=== PATIENT | female | born 1985 | race Caucasian/White ===

== ENCOUNTER 2019-09-07 10:55 | Outpatient (CLI) | payer OTHER, SELFPAY ==
[2019-09-07 12:02] LABS: Beta HCG Quantitative 43.85 mIU/ML
[2019-09-11 21:21] LABS: Progesterone 0.6 ng/mL (***)
== END 2019-09-07 10:56 | disposition home or self-care (01) ==
LOC: ANHLAB 10:59
PROVIDERS: PCP Physician Assistant Medical; Visit Provider Obstetrics & Gynecology
DX: O20.0 Threatened abortion (principal)
CPT/HCPCS: 36415; 84144; 84702

== ENCOUNTER 2019-09-09 11:52 | Outpatient (RCR) | payer OTHER, SELFPAY ==
[2019-09-09 12:40] LABS: Beta HCG Quantitative 29.25 mIU/ML
== END 2019-10-25 08:01 | disposition home or self-care (01) ==
LOC: ANHOBOP 11:52
PROVIDERS: PCP Physician Assistant Medical; Visit Provider Obstetrics & Gynecology
DX: Z32.00 Encounter for pregnancy test, result unknown (principal)
CPT/HCPCS: 36415; 84702

== ENCOUNTER 2023-03-07 20:54 | Emergency (ER) | payer OTHER, SELFPAY ==
[2023-03-07 22:31] LABS: Basophils Percent Auto 0.4 % (0.2-1.2); Eosinophils Absolute Auto 0.1 K/mm3 (0-0.3); Hematocrit 38.1 % (37.0-47.0); Hemoglobin 12.7 g/dL (12.0-15.0); Immature Granulocyte Absolute 0.03 K/mm3 (0.00-0.031); Immature Granulocyte Percent A 0.3 % (0-0.5); Lymphocytes Absolute Auto 2.97 K/mm3 (0.9-3.2); Lymphocytes Percent Auto 26.9 % (18.3-44.2); Mean Corpuscular HGB Conc 33.3 g/dl (32-36); Mean Corpuscular Hemoglobin 28.8 pg (26-34); Mean Corpuscular Volume 86.4 fl (80-100); Mean Platelet Volume 10.6 fl (7.4-10.4); Monocytes Absolute Auto 0.7 K/mm3 (0.1-0.6); Monocytes Percent Auto 5.9 % (2.6-8.5); Neutrophils Absolute Auto 7.2 K/mm3 (1.3-6.7); Neutrophils Percent Auto 65.5 % (45.5-73.1); Platelet Count Result 270 k/mm3 (150-375); Red Blood Count 4.41 M/mm3 (4.2-5.4); Red Cell Distribution Width 13.6 % (11.5-14.5)
--- NOTE | 2023-03-07 22:33 | ED.PREGNANCY ---
HPI - General Chief complaint: Vaginal Bleeding Stated complaint: vaginal bleeding 15 weeks Time Seen by Provider: 03/07/23 22:10 Source: patient Mode of arrival: ambulatory Limitations: no limitations History of Present Illness HPI Narrative: This is a 37-year-old G6, P2, about 15 weeks , that presents to the emergency department for vaginal bleeding. Reports yesterday she started to have some pelvic cramping. Today she has noted some spotting. Reports brown/dark red blood. She has had several ultrasounds which showed intrauterine pregnancies. She has had no other complications or bleeding this . Her OB is Dr. Cosby. Denies fevers, vomiting, or dysuria. Related Data Allergies Allergy/AdvReac Type Severity Reaction Status Date / Time Sulfa (Sulfonamide AdvReac Intermediate HIVES, Verified 12/13/22 14:04 Antibiotics) ITCHY Review of Systems Review of Systems: CONSTITUTIONAL: Denies fever GASTROINTESTINAL: Reports pelvic cramping. Denies nausea, vomiting, or diarrhea. GENITOURINARY: Denies dysuria All systems reviewed & are unremarkable except as noted in HPI and below PMFSH Past Medical History Medical History (Updated 03/08/23 @ 00:13 by Danielle Hidalgo PA-C) No active medical problems Social History Social History Smoking status: Unknown if ever smoked Second hand tobacco smoke exposure: No Alcohol intake: never Substance use: never Substance use type: does not use Lack of Transportation: No Lack of Food: Never True Current Housing: I Have Housing Concerned About Future Housing: No Difficulty Paying Gas/Electric Bills: No Difficulty Paying for Meds: No Currently Unemployed: No Education: Bachelor's Degree Difficulty w/ Childcare or Family Care: No Living arrangements: with family Occupation/Education: occupation Gender identity (if verbalized by the patient): Female Sexual Orientation (if Verbalized by the Patient): Straight or Heterosexual Exam Narrative: GENERAL: Well-appearing, well-nourished, and in no acute distress. HEAD: Normocephalic, atraumatic. EYES: EOMI. CHEST: Clear to auscultation. No respiratory distress. No wheezes rales or rhonchi HEART: Regular rate and rhythm. No murmur heard. Normal peripheral pulses. ABDOMEN: Soft, nontender, nondistended, normal active bowel sounds. EXTREMITIES: Normal range of motion. No edema. SKIN: Warm, dry, no rash. NEURO: No focal deficits. Alert and oriented x3. PSYCH: Normal mood and affect PELVIC: Difficult due to body habitus, scant brown/dark red blood noted in the vaginal vault Course Course Emergency Course: Patient was updated on work-up and agrees with plan of care Procedures Other Procedure Procedure 1: Other Procedure: Bedside ultrasound performed which shows motion with positive cardiac activity MDM - OB/Uterine Contractions MDM Narrative Medical decision making narrative: Patient presents to the emergency department for vaginal bleeding in . She is afebrile and nontoxic appearing. Scant amount of bleeding noted on exam. Her hemoglobin is 12.7. She is O+. Bedside ultrasound performed which does show activity with positive cardiac motion. Patient was updated on work-up and agrees with plan of care. Spoke with Dr. Cosby about patient and workup who will follow up in clinic. Patient was given warnings to return to the ER Differential Diagnosis Differential diagnosis: Likely other (Threatened miscarriage, miscarriage) Lab Data Attestation: I reviewed the patient's lab results. 03/07/23 22:18 Labs: Lab Results 03/07/23 03/07/23 Range/Units 22:18 22:24 WBC 11.0 H (4.5-10.0) K/mm3 RBC 4.41 (4.2-5.4) M/mm3 Hgb 12.7 (12.0-15.0) g/dL Hct 38.1 (37.0-47.0) % MCV 86.4 (80-100) fl MCH 28.8 (26-34) pg MCHC 33.3 (32-36) g/dl RDW 13.
[2023-03-07 22:35] LABS: Appearance Urine Cloudy (Clear); Bacteria Urine 1+ /hpf; Bilirubin Urine Negative (Negative); Color Urine Yellow (Yellow); Glucose Urine UA Negative (Negative); Ketones Urine Trace mg/dL (Negative); Leukocyte Esterase Ur Negative LEU/UL (Negative); Nitrate Urine Negative (Negative); Non Pathogenic Casts 0-2; Protein Urine Negative (Negative); RBC Urine 0-2 /hpf (0-2); Specific Grav Ur 1.034 (1.001-1.035); Squamous Epithelial Cell Urine Many /hpf (Few)
[2023-03-07 22:38] LABS: Add Urine Microscopic? YES
[2023-03-07 23:00] VITALS: BP 125/87; PULSE 77; RESP 14; O2SAT 99
[2023-03-08 00:18] VITALS: BP 128/71; PULSE 88; RESP 14; O2SAT 100
== END 2023-03-08 00:40 | disposition home or self-care (01) ==
PROVIDERS: Emergency Provider Physician Assistant; PCP Physician Assistant Medical
DX: O46.92 Antepartum hemorrhage, unspecified, second trimester (principal); Z3A.15 15 weeks gestation of pregnancy
CPT/HCPCS: 36415; 81001; 84702; 85025; 85461; 86850; 86900; 86901; 87086; 87088; 99284

== ENCOUNTER 2023-08-12 20:11 | Observation (INO) | payer OTHER, MEDICAID, SELFPAY ==
--- NOTE | 2023-08-12 20:11 | OBADM ---
This patient, Aislinn Quinteros, admitted to the OB room Labor/Delivery/Recovery 107 for observation. Patient/family oriented to hospital policies and general routines including ID bracelet, bed and alarms, visiting hours, pain management, procedures, bathroom and other care routines, personal items, smoking policy, room service/diet, and visiting hours. Patient/Family are encouraged to report perceived risks to care and to ask questions if they do not understand what they are told or what they should do.
--- NOTE | 2023-08-12 21:50 | PC.NURSE ---
Discharge instructions reviewed with patient. Labor precautions reviewed and kick counts reviewed. Patient states understanding of all discharge education. Patient instructed to follow-up with Dr. Cosby as scheduled this week. Patient states understanding of all discharge and follow up instructions.
--- NOTE | 2023-09-11 11:09 | PM.OBTRLD ---
OB - Triage/Final Diagnosis Visit Information Comments/Additional reasons for admission: I have assessed the risk for this patient, Aislinn Quinteros, and determined that she would benefit from observation care. Final Diagnosis (1) False labor: Code(s): O47.9 - False labor, unspecified Status: Acute
== END 2023-08-12 21:50 | disposition home or self-care (01) ==
PROVIDERS: Admitting Provider Obstetrics & Gynecology; PCP Physician Assistant Medical; Visit Provider Obstetrics & Gynecology
DX: O47.1 False labor at or after 37 completed weeks of gestation (principal); Z3A.37 37 weeks gestation of pregnancy; Z3A.00 Weeks of gestation of pregnancy not specified
CPT/HCPCS: G0378; G0379

== ENCOUNTER 2023-08-14 11:42 | Inpatient (IN) | payer OTHER, MEDICAID, SELFPAY ==
[2023-08-14] VITALS (84 sets, daily range): BP systolic 84–159; BP diastolic 42–90; PULSE 25–101; TEMP 36.1–36.3; O2SAT 90–100; BMI 49.6
--- NOTE | 2023-08-14 11:42 | LDADM ---
This patient, Aislinn Quinteros, was admitted to Labor/Delivery/Recovery 106 on 08/14/23 at 11:42. Plans for labor, pain management and were discussed with patient. Patient/family oriented to hospital policies and general routines including ID bracelet, bed and alarms, visiting hours, pain management, procedures, bathroom and other care routines, personal items, smoking policy, room service/diet and guest tray routines, infant security routines, and visiting hours. Patient/Family are encouraged to report perceived risks to care and to ask questions if they do not understand what they are told or what they should do. See OBIX for further documentation.
[2023-08-14 12:51] LABS: Basophils Percent Auto 0.3 % (0.2-1.2); Eosinophils Absolute Auto 0.1 K/mm3 (0-0.3); Eosinophils Percent Auto 0.8 % (0-4.4); Hematocrit 33.1 % (37.0-47.0); Hemoglobin 10.8 g/dL (12.0-15.0); Immature Granulocyte Percent A 0.8 % (0-0.5); Lymphocytes Absolute Auto 2.07 K/mm3 (0.9-3.2); Lymphocytes Percent Auto 16.8 % (18.3-44.2); Mean Corpuscular HGB Conc 32.6 g/dl (32-36); Mean Corpuscular Hemoglobin 26.7 pg (26-34); Mean Corpuscular Volume 81.7 fl (80-100); Mean Platelet Volume 10.5 fl (7.4-10.4); Monocytes Absolute Auto 0.7 K/mm3 (0.1-0.6); Monocytes Percent Auto 5.6 % (2.6-8.5); Neutrophils Absolute Auto 9.3 K/mm3 (1.3-6.7); Neutrophils Percent Auto 75.7 % (45.5-73.1); Platelet Count Result 315 k/mm3 (150-375); Red Blood Count 4.05 M/mm3 (4.2-5.4); Red Cell Distribution Width 13.6 % (11.5-14.5); White Blood Count 12.3 K/mm3 (4.5-10.0)
[2023-08-14] MEDS: OXYTOCIN 30 UNITS/NS 500 ML 30 UNITS/500 ML BAG IV CONT (13:55)
[2023-08-14] MEDS: LACTATED RINGERS 1,000 ML 125 ML IV CONT ×3 (13:55→21:10)
--- NOTE | 2023-08-14 18:33 | WPDANESEPP ---
Anes - Eval Pre Procedure Procedure: labor epidural Date/Time: 08/14/23 18:33 Pre Op Diagnosis: ROM Patient Data Age: 38 Gender: F Height: 1.57 m Weight: 123 kg Last Vital Signs Temp 36.1 C L 08/14/23 18:16 Pulse 79 08/14/23 18:31 BP 145/82 H 08/14/23 18:31 Allergies Allergy/AdvReac Type Severity Reaction Status Date / Time Sulfa (Sulfonamide AdvReac Severe HIVES, Verified 08/14/23 12:23 Antibiotics) ITCHY Home Medications Medication Instructions Recorded Confirmed Type ferrous sulfate 325 mg (65 mg 325 mg PO DAILY 07/28/23 07/28/23 History iron) tablet prenat.vits,benjamin,[id number] 1 tablet PO DAILY 07/28/23 08/14/23 History Laboratory Tests 08/14/23 12:14 WBC 12.3 H K/mm3 (4.5-10.0) RBC 4.05 L M/mm3 (4.2-5.4) Hgb 10.8 L g/dL (12.0-15.0) Hct 33.1 L % (37.0-47.0) MCV 81.7 fl (80-100) MCH 26.7 pg (26-34) MCHC 32.6 g/dl (32-36) RDW 13.6 % (11.5-14.5) Plt Count 315 k/mm3 (150-375) MPV 10.5 H fl (7.4-10.4) Immature Gran % (Auto) 0.8 H % (0-0.5) Neut % (Auto) 75.7 H % (45.5-73.1) Lymph % (Auto) 16.8 L % (18.3-44.2) [place] % (Auto) 5.6 % (2.6-8.5) Eos % (Auto) 0.8 % (0-4.4) Baso % (Auto) 0.3 % (0.2-1.2) Lymph # (Auto) 2.07 K/mm3 (0.9-3.2) [place] # (Auto) 0.7 H K/mm3 (0.1-0.6) Eos # (Auto) 0.1 K/mm3 (0-0.3) Baso # (Auto) 0.0 K/mm3 (0.0-0.1) Abs Immat Gran (auto) 0.10 H K/mm3 (0.00-0.031) Absolute Neuts (auto) 9.3 H K/mm3 (1.3-6.7) Absolute Nucleated RBC 0.0 K/mm3 (0.0-0.012) Nucleated RBC % 0.0 % (0.0-0.2) RPR Pending Blood Type O Positive Antibody Screen Negative Patient hx anesthesia problems: none Family hx anesthesia problems: none Results Review: All pre-operative results and documents have been reviewed as part of the pre-operative evaluation. [facility] Past Medical History Medical History No active medical problems Family History Family History Sibling Heart murmur Sibling Tumor, thyroid Father Lung cancer Mother Breast cancer Lung cancer Social History Social History Smoking status: Never smoker Second hand tobacco smoke exposure: No Alcohol intake: never Substance use: never Substance use type: does not use Do You Feel Safe in your Home?: Yes Lack of Transportation: No Lack of Food: Never True Current Housing: I Have Housing Concerned About Future Housing: No Difficulty Paying Gas/Electric Bills: No Difficulty Paying for Meds: No Currently Unemployed: No Education: Bachelor's Degree Difficulty w/ Childcare or Family Care: No Living arrangements: with family Occupation/Education: occupation Gender identity (if verbalized by the patient): Female Sexual Orientation (if Verbalized by the Patient): Straight or Heterosexual Spiritual care concerns: No Exam Day of Procedure 08/14/23 18:33 Patient weight: morbidly obese Heart: regular rate and rhythm Lungs: normal air movement Airway: Mallampati scale Neurological: alert and oriented
[2023-08-14] MEDS: fentaNYL CITRATE INJ (*CRX) 100 MCG/2 ML VIAL 50 MCG IV PUSH (21:03)
[2023-08-14] MEDS: PHENYLEPHRINE 1,000 MCG/10 ML SYRINGE 100 MCG IV PUSH ×5 (22:11→23:21)
[2023-08-15] VITALS (329 sets, daily range): BP systolic 74–237; BP diastolic 36–174; PULSE 41–248; RESP 14–27; TEMP 36.1–37.9; O2SAT 85–100
[2023-08-15] MEDS: ONDANSETRON INJ 4 MG/2 ML VIAL IV PUSH ×3 (03:10→14:37)
[2023-08-15] MEDS: AMPICILLIN 2 GM/NS 100 ML 2 GM/100 ML BAG IVPB (05:13)
[2023-08-15] MEDS: LACTATED RINGERS 1,000 ML 125 ML IV CONT ×3 (05:55→15:35)
--- NOTE | 2023-08-15 07:34 | P.HPUP_ITS ---
History and Physical Update Update Date/Time: 08/15/23 07:34 38-year-old multiparous female with spontaneous rupture membranes, augmented with Pitocin, reassuring heart tones, antibiotics for prolonged rupture now. Continue expectant management, epidural History and Physical has been reviewed, including an updated exam of the patient. There are NO changes in the patient's condition. Risks, benefits, and alternatives have been discussed and questions answered. P atient agrees to proceed with procedure.
[2023-08-15] MEDS: FAMOTIDINE 20 MG/2 ML VIAL IV PUSH (08:30)
[2023-08-15] MEDS: AMPICILLIN 1 GM/NS 50 ML 1 GM/50 ML BAG IVPB ×2 (08:37→12:32)
[2023-08-15] MEDS: SODIUM CHLORIDE 0.9% IV 300 ML 600 ML I-UTERINE (08:48)
[2023-08-15] MEDS: ACETAMINOPHEN 500 MG TABLET 1000 MG PO ×2 (09:46→15:23)
[2023-08-15 10:42] LABS: Rapid Plasma Reagin Non-Reactive (NonReactive)
--- NOTE | 2023-08-15 17:15 | PM.IMHP ---
H&P: HPI History of Present Illness Date/Time: 08/15/23 17:15 Chief Complaint: Term Narrative: This patient is a 38-year-old female with a term who presented with spontaneous rupture membranes at term. She progressed through labor though slowly. Has been ruptured membranes for over 24 hours. Developed nonreassuring heart tones that have persisted. Labor has stalled with worsening heart rate tracing. We have agreed to perform . Malposition of the head. The patient understands the details of the procedure. The procedure has been explained in detail. She understands the risks. She understands that injuries may occur that result in hospitalization, more surgery, and severe illness. She understands risk of hemorrhage and infection. She denies any chest pain or shortness of breath. She denies any nausea, vomiting, fever, chills. Review of Systems Review of Systems: All systems reviewed & are unremarkable except as noted in HPI and below Constitutional: Constitutional: Denies chills, Denies fatigue, Denies fever(s) and Denies weakness Eyes: Eyes: Denies blurry vision, Denies change in vision, Denies loss of peripheral vision, Denies loss of vision, Denies other visual disturbances and Denies eye pain ENT: Denies vertigo, Denies dizziness, Denies hearing loss, Denies mouth pain, Denies nasal obstruction, Denies neck mass and Denies neck pain Cardiovascular: Cardiovascular: Denies chest pain, Denies diaphoresis, Denies syncope, Denies leg edema and Denies dyspnea Respiratory: Respiratory: Denies chest congestion, Denies cough, Denies hemoptysis, Denies dyspnea and Denies wheezing Gastrointestinal: Gastrointestinal: Denies abdominal pain, Denies constipation, Denies diarrhea, Denies nausea and Denies vomiting Genitourinary: Genitourinary: Denies hematuria, Denies change in libido, Denies nocturia, Denies genital lesions, Denies flank pain and Denies urinary urgency Musculoskeletal: Musculoskeletal: Denies abnormal gait, Denies back pain, Denies myalgias, Denies arthralgias, Denies joint swelling, Denies muscle weakness and Denies neck pain Integumentary/Breasts: Skin/Breast: Denies swelling, Denies breast pain, Denies breast mass, Denies dry skin, Denies nipple discharge, Denies unusual bruising and Denies jaundice Neurologic: Denies Neuro-related abnormal movements, Denies Abnormal speech present, Denies abnormal gait, Denies behavioral changes, Denies confusion, Denies vertigo, Denies dizziness, Denies syncope, Denies loss of vision, Denies memory loss, Denies convulsions and Denies weakness Psychiatric: Psychiatric: Denies abnormal sleep pattern, Denies behavioral changes, Denies change in libido, Denies confusion, Denies depression, Denies anhedonia and Denies memory loss Endocrine: Endocrine: Reports no additional endocrine complaints, Denies change in libido and Denies fatigue Hematologic/Lymphatic: Hematologic/Lymphatic: Reports no additional hematologic/lymphatic complaints Allergic/Immunologic: Allergic/Immunologic: Reports no additional allergic/immunologic complaints and Denies wheezing PMFSH Past Medical History Medical History No active medical problems Family History Family History Sibling Heart murmur Sibling Tumor, thyroid Father Lung cancer Mother Breast cancer Lung cancer Social History Social History Smoking status: Never smoker Second hand tobacco smoke exposure: No Alcohol intake: never Substance use: never Substance use type: does not use Do You Feel Safe in your Home?: Yes Lack of Transportation: No Lack of Food: Never True Current Housing: I Have Housing Concerned About Future Housing: No Difficulty Paying Gas/Electric Bills: No Difficulty Paying for Meds: No
--- NOTE | 2023-08-15 17:20 | WPDHPUPDATE1 ---
History and Physical Update Update Date/Time: 08/15/23 17:20 History and Physical has been reviewed, including an updated exam of the patient. There are NO changes in the patient's condition. Risks, benefits, and alternatives have been discussed and questions answered. Patient agrees to proceed with procedure.
[2023-08-15] MEDS: ceFAZolin 3 GM/D5W 100 ML 100 ML IVPB (18:00)
--- NOTE | 2023-08-15 18:33 | P.PCNOB_ITS ---
OB - Delivery Note Procedure Delivery date: 08/15/23 Pre-op diagnosis: Arrest of Decent, Non-Reassuring Status and Other ( malposition of the head) Post-op Diagnosis: Same Procedure Performed: Primary Surgeon: Miguelito Cosby MD Anesthesia type: Epidural Description of Procedure/Findings: The patient was taken the operating room.? She was prepped and draped in dorsal supine position with a leftward tilt.? This was done after spinal anesthetic was applied.? A low-transverse skin incision was made and carried down till of the fascia with the knife.? The fascial incision was made with the knife.? The fascial incision was extended laterally with Powers scissors.? The fascia was tented upward superiorly and inferiorly the rectus muscles were dissected off bluntly.? The rectus muscles were the midline.? The preperitoneal fat and peritoneum were dissected open bluntly at the superior aspect of the rectus muscles.? The peritoneal incision was extended superior and inferior with good position of bladder.? The uterine incision was made with a scalpel down to the level of the amniotic cavity.? The amniotic cavity was entered bluntly.? The infant was delivered.? The cord was clamped and cut and the was handed off to waiting pediatric staff.? Cord bloods were obtained.? The placenta was removed manually.? The uterus was exteriorized.? The uterus was cleared of all clots, debris and membranes.? The uterus was closed in 0 Vicryl running lock fashion.? An imbricating over a was placed along the incision line as well.? The uterus was returned to the abdomen.? The gutters were cleared of all clots and debris.? The fascia was closed with 0 Vicryl running fashion.? The subcutaneous tissue was irrigated pinpoint bleeders were cauterized.? The skin was closed with subcuticular absorbable татьяна.? The skin incision line was covered with glue.? The patient tolerated the procedure well.? She has taken recovery room in stable condition.? Sponge lap and needle counts were correct x2.? [place] Baby Date of : 08/15/23 Weeks of gestation at delivery: 39
[2023-08-15] MEDS: OXYTOCIN 30 UNITS/NS 500 ML 30 UNITS/500 ML BAG 125 UNITS IV CONT (19:21)
--- NOTE | 2023-08-15 21:00 | OBPPTRN ---
Patient transferred to post room #286 via stretcher. Oriented to unit, room, information board, rooming in, admission packet and security measures. Patient verbalizes understanding.
[2023-08-15] MEDS: KETOROLAC 15 MG/ML VIAL (*BKC) IV PUSH (21:20)
[2023-08-15] MEDS: ACETAMINOPHEN 325 MG TABLET 650 MG PO (21:58)
[2023-08-15] MEDS: DEXTROSE 5%/0.45% SOD CHL 1,000 ML 125 ML IV CONT (23:50)
[2023-08-16] MEDS: ACETAMINOPHEN 325 MG TABLET 650 MG PO ×2 (04:14→10:28)
[2023-08-16] MEDS: KETOROLAC 15 MG/ML VIAL (*BKC) IV PUSH ×2 (04:28→10:29)
[2023-08-16 05:05] LABS: Basophils Absolute Auto 0.1 K/mm3 (0.0-0.1); Basophils Percent Auto 0.2 % (0.2-1.2); Hematocrit 27.3 % (37.0-47.0); Hemoglobin 8.7 g/dL (12.0-15.0); Immature Granulocyte Absolute 0.11 K/mm3 (0.00-0.031); Immature Granulocyte Percent A 0.5 % (0-0.5); Lymphocytes Absolute Auto 1.47 K/mm3 (0.9-3.2); Lymphocytes Percent Auto 7.2 % (18.3-44.2); Mean Corpuscular HGB Conc 31.9 g/dl (32-36); Mean Corpuscular Hemoglobin 27.2 pg (26-34); Mean Corpuscular Volume 85.3 fl (80-100); Mean Platelet Volume 10.8 fl (7.4-10.4); Monocytes Absolute Auto 1.1 K/mm3 (0.1-0.6); Monocytes Percent Auto 5.4 % (2.6-8.5); Neutrophils Absolute Auto 17.8 K/mm3 (1.3-6.7); Neutrophils Percent Auto 86.7 % (45.5-73.1); Platelet Count Result 270 k/mm3 (150-375); Red Cell Distribution Width 13.7 % (11.5-14.5); White Blood Count 20.5 K/mm3 (4.5-10.0)
[2023-08-16 08:15] VITALS: BP 109/48; PULSE 70; RESP 18; TEMP 36.2; O2SAT 98
[2023-08-16] MEDS: MULTIVIT/MIN/PREN/FOL AC/IRON TABLET 1 TAB PO (10:23)
[2023-08-16] MEDS: POLYSACCHARIDE IRON COMPLEX 150 MG CAPSULE PO ×2 (10:23→19:03)
--- NOTE | 2023-08-16 10:58 | P.PNOB_ITS ---
OB - PN: Subj Subjective Date/time seen: 08/16/23 10:58 Interval history: POD#1 Doing well, some pain with getting in and out of bed Ambulating without issue Byrd catheter removed this morning, awaiting spontaneous void , doing well OB - PN: Obj Data Labs 08/16/23 04:19 Labs: Laboratory Results - last 24 hr 08/16/23 04:19 WBC 20.5 H RBC 3.20 L Hgb 8.7 L Hct 27.3 L MCV 85.3 MCH 27.2 MCHC 31.9 L RDW 13.7 Plt Count 270 MPV 10.8 H Immature Gran % (Auto) 0.5 Neut % (Auto) 86.7 H Lymph % (Auto) 7.2 L [place] % (Auto) 5.4 Eos % (Auto) 0.0 Baso % (Auto) 0.2 Lymph # (Auto) 1.47 [place] # (Auto) 1.1 H Eos # (Auto) 0.0 Baso # (Auto) 0.1 Abs Immat Gran (auto) 0.11 H Absolute Neuts (auto) 17.8 H Absolute Nucleated RBC 0.0 Nucleated RBC % 0.0 OB - PN A/P Plan day: 1 Plan: routine care Time Spent With Patient Time: Total time spent is greater than 50% in coordination of care (as documented) at patient's floor/unit and/or counseling patient: Review of Systems Review of Systems: All systems reviewed & are unremarkable except as noted in HPI and below Exam Const: General: cooperative, healthy appearing, comfortable and no acute distress Orientation/consciousness: oriented to person, oriented to place and oriented to time HENMT: Head: normal to inspection Ears: external ears normal Face/Nose/Sinus: Normal external nose present and normal facial exam Face and sinus: normal facial exam Eyes: General: appearance normal, both eyes and all related structures Neck: Neck: normal visual inspection, trachea midline and supple Resp: Auscultation: clear to auscultation bilaterally, no crackles, no rales, no rhonchi and no wheezes Cardio: Rate: regular rate Rhythm: regular rhythm Heart sounds: no click, no murmurs and no rubs GI: GI Palp: No abdominal tenderness, No Soft to palpation, No Tenderness to palpation present (GI) and No Palpable mass present Auscultation: normal bowel sounds Other: incision c/d/i Skin: General skin exam: normal color and no rashes or lesions noted Neuro: General: oriented to person, oriented to place and oriented to time Extrem: General: normal to inspection, no joint enlargement, no clubbing, cyanosis or edema, no pedal edema and no calf tenderness Psych: Appearance: grossly normal Mental Status: mental status grossly normal Speech and movement: Normal speech and movement present
[2023-08-16 12:06] VITALS: BP 125/62; PULSE 80; RESP 16; TEMP 36.5; O2SAT 97
--- NOTE | 2023-08-16 12:12 | WPDANLDPN2 ---
Anes-Prog Note L&D Date/Time: 08/16/23 12:12 Comfortable throughout: section Neuraxial method: epidural Epidural/Spinal procedure site: clean & non-tender Neuro status: Neuro function grossly intact. Cardiovascular status: normal Respiratory status: normal Airway patency: baseline Mental status: baseline Post-Op hydration status: normal Vital Signs: Last Vital Signs Temp 36.5 C 08/16/23 12:06 Pulse 80 08/16/23 12:06 Resp 16 08/16/23 12:06 BP 125/62 08/16/23 12:06 Pulse Ox 97 08/16/23 12:06 O2 Del Method Room Air 08/15/23 23:50 Pain score (VAS): 3/10 I/O: Intake & Output 08/15/23 08/16/23 08/16/23 23:59 07:59 15:59 Intake Total 300 Output Total 1165 450 350 Balance -1165 -150 -350 Post-procedural complaints: none Patient feedback: Patient satisfied with anesthetic care.
--- NOTE | 2023-08-16 12:13 | WPDANLDNPN2 ---
Anes-Prog Note L&D-Neuraxial Date/Time: 08/16/23 12:13 Neuraxial medications: epidural PF morphine Opiod-related complaints: none Patient feedback: Patient satisfied with post-operative pain management.
--- NOTE | 2023-08-16 14:22 | PC.NURSE ---
1200 Introductions were made, then consulted with patient to assess needs related to . Mother led the conversation with her?plans to feed?her and the?experience so far. Encouraged understanding of the benefits of skin to skin (demonstrating unwrapping infant and placing upright on her chest), stimulating with massage touch, changing positions to encourage wakefulness, how to watch for early feeding cues, responsive feeding, feeding on demand (aiming for 8-12 times in 24 hours, about every 2-3 hours), milk production, building/maintaining a milk supply, duration of feeding, signs of adequate intake/output and how to record on the feeding sheet. Mother works well with her with encouragement and education. Reviewed positioning and ear, shoulder, hip alignment, supporting the breast to facilitate a deep latch, asymmetrical latch (off-center), leading with the chin with a big, open, wide gape and body close to mother. Mother states infant latched optimally to the both breasts in cross cradle position. Education given to the mother of how to visualize the suckling (with good rocking jaw motion), swallows (dropping of the lower jaw) and how to listen for drinking at the breast (the ka sound). She states infant was able to maintain latch without pain to mother protecting the nipple with optimal positioning and latching. Reviewed comfort measures of healing with a warm, wet washcloth to rinse breast, then leave open to air-dry, good handwashing when or touching the breast/nipples to prevent infection. Mother voiced understanding of skin to skin, stimulating with massage touch, responsive feedings, hand expressed colostrum, talking to to encourage if it has been 2 -2.5 hours since the start of the last , to call if infant does not latch, or if there is discomfort with . Resources used for education were facilitated with the visual educational handouts/ tool/mom and baby guide, Inpatient resources provided with business card, feeding sheet, name written on the communication board, and the mom/baby guide. Parents voiced understanding of information, demonstrated learning and will call if there is a request for assistance. Reported to the Primary RN.
[2023-08-16] MEDS: IBUPROFEN 600 MG TABLET PO (19:03)
[2023-08-16] MEDS: SIMETHICONE 80 MG TAB.CHEW PO (19:03)
[2023-08-16] MEDS: DOCUSATE SODIUM 100 MG CAPSULE PO (19:03)
[2023-08-16] MEDS: HYDROcodone/acetaminophen (*CRX) 5-325 MG TABLET 1 TAB PO ×2 (19:03→22:07)
[2023-08-16 19:05] VITALS: BP 140/71; PULSE 97; RESP 18; TEMP 36.3
[2023-08-17] MEDS: ACETAMINOPHEN 325 MG TABLET 650 MG PO (01:00)
[2023-08-17] MEDS: IBUPROFEN 600 MG TABLET PO ×2 (01:00→08:29)
[2023-08-17] MEDS: HYDROcodone/acetaminophen (*CRX) 5-325 MG TABLET 1 TAB PO ×3 (03:54→12:41)
[2023-08-17 07:40] VITALS: BP 132/62; PULSE 78; RESP 20; TEMP 36.3; O2SAT 97
--- NOTE | 2023-08-17 07:41 | P.PNOB_ITS ---
OB - PN: Subj Subjective Date/time seen: 08/17/23 07:41 Interval history: POD#1 Doing well, some pain with getting in and out of bed Ambulating without issue Byrd catheter removed this morning, awaiting spontaneous void , doing well Patient comments: no complaints, pain well controlled, incisional pain, tolerat ing diet and flatus present OB - PN: Obj Data Labs 08/16/23 04:19 OB - PN A/P Plan day: 2 Plan: routine care Comments: POD#2 LTCS - no problems, Time Spent With Patient Time: Total time spent is greater than 50% in coordination of care (as documented) at patient's floor/unit and/or counseling patient: Exam Const: General: comfortable, no acute distress and alert Resp: Effort & Inspection: normal respiratory effort Auscultation: no crackles, no rales and no rhonchi Cardio: Rate: regular rate Heart sounds: no click, no murmurs and no rubs GI: Inspection: non-distended Auscultation: normal bowel sounds Other: Incision - CDI Extrem: General: normal to inspection, no pedal edema and no calf tenderness
--- NOTE | 2023-08-17 07:43 | PM.OBDSVD ---
DS: Admitting Diagnosis Discharge Date 08/17/23 Admitting Diagnosis term DS: Discharge Diagnosis Discharge Diagnosis (1) delivery delivered: Code(s): O82 - Encounter for delivery without indication Status: Acute OB - DS: Summary OB Procedures : None OB Procedures Intrapartum: OB Procedures: : None Peripartum Data Procedures: Procedures Operation Date: 08/15/23 17:30 Actual Procedure Side Surgeon p Section Miguelito Cosby MD Time Spent with Patient Time attestation: Total time spent providing and/or coordinating discharge services: Discharge Plan Discharge Discharging Clinician: Miguelito Cosby Patient Disposition: Home, Self-Care Activity: pelvic rest Diet: regular Patient Instructions: Antibiotic Form Stand Alone Forms: General Discharge Information Follow-up/Referrals: Miguelito Cosby MD [Physician] - Discharge Medications: New oxycodone-acetaminophen 5-325 mg tablet 1 tablet PO Q4H PRN (Reason: pain) Qty: 25 0RF Continued ferrous sulfate 325 mg (65 mg iron) Tablet 325 mg PO DAILY prenat.vits,benjamin,cis-kxai-wterr Tablet 1 tablet PO DAILY Date of admission: 08/14/23 11:42 Primary Care Provider: Bryanna Chavez Admitting Provider: Miguelito Cosby Attending physician on admission: Miguelito Cosby Condition: Stable
[2023-08-17] MEDS: MULTIVIT/MIN/PREN/FOL AC/IRON TABLET 1 TAB PO (08:28)
[2023-08-17] MEDS: POLYSACCHARIDE IRON COMPLEX 150 MG CAPSULE PO (08:28)
[2023-08-17] MEDS: DOCUSATE SODIUM 100 MG CAPSULE PO (08:28)
[2023-08-17] MEDS: SIMETHICONE 80 MG TAB.CHEW PO (08:28)
--- NOTE | 2023-08-17 10:04 | PC.NURSE ---
On 08/17/23, the student, Esther Eason, provided care and completed [facility] documentation on this patient. I have reviewed the student's documentation and agree with the findings.
[2023-08-18 13:56] VITALS: BP 99/62; PULSE 78; RESP 18; TEMP 36.9; O2SAT 97
== END 2023-08-17 13:50 | disposition home or self-care (01) | DRG 788 ==
LOC: ANHLDR 08-15 08:40 → ANHOB2 08-15 21:09
PROVIDERS: Admitting Provider Obstetrics & Gynecology; PCP Physician Assistant Medical; Visit Provider Obstetrics & Gynecology
PROC: 10D00Z1 Extraction of Products of Conception, Low, Open Approach (ICD-10-PCS; CPT 59514; principal; 2023-08-15 17:30)
DX: O62.1 Secondary uterine inertia (principal); O76 Abnormality in fetal heart rate and rhythm complicating labor and delivery; O32.8XX0 Maternal care for other malpresentation of fetus, not applicable or unspecified; O69.81X0 Labor and delivery complicated by cord around neck, without compression, not applicable or unspecified; O42.92 Full-term premature rupture of membranes, unspecified as to length of time between rupture and onset of labor; Z3A.38 38 weeks gestation of pregnancy; Z37.0 Single live birth
CPT/HCPCS: 36415; 84112; 85025; 86592; 86850; 86900; 86901; A9270; G0378; G0379; J0290; J0690; J1885; J2274; J2371; J2405; J2590; J2795; J3010; J7030; J7120

== ENCOUNTER 2023-10-30 11:49 | Emergency (ER) | payer OTHER, SELFPAY ==
--- NOTE | 2023-10-30 11:53 | ED.GENADULT ---
HPI - General Adult General Chief complaint: Extremity Problem,Nontraumatic Stated complaint: Foot Pain Time Seen by Provider: 10/30/23 11:52 Source: patient Mode of arrival: ambulatory Limitations: no limitations History of Present Illness HPI narrative: 38-year-old female patient presents to [facility] with complaints of left foot pain for the past week. Denies any specific injury that she is aware of of the foot. Patient states that it is mainly her great toe on the left foot especially when she does flex extension to the toe it hurts to the top of the foot. Patient states she recently gave in August of this year and states recently, her joints all over have been kind of achy. Denies any fevers, body aches or chills. Patient states she has been taking 100 mg of ibuprofen for the pain but denies wrapping it or icing it. Related Data Home Medications Medication Instructions Recorded Confirmed norethindrone (contraceptive) 0.35 0.35 mg PO DAILY 10/30/23 10/30/23 mg tablet (Shantell) Allergies Allergy/AdvReac Type Severity Reaction Status Date / Time Sulfa (Sulfonamide AdvReac Severe HIVES, Verified 10/30/23 12:02 Antibiotics) ITCHY Review of Systems Review of Systems: CONSTITUTIONAL: Denies fever, chills, or sweats. EYES: Denies visual changes, redness, or discharge. ENT: Denies rhinorrhea, congestion, sore throat, or otalgia. CARDIOVASCULAR: Denies chest pain, palpitations, or edema. RESPIRATORY: Denies cough or dyspnea. GASTROINTESTINAL: Denies abdominal pain, nausea, vomiting, or diarrhea. GENITOURINARY: Denies dysuria or hematuria. SKIN: Denies rash or itching. MUSCULOSKELETAL: Denies back pain, Positive left foot joint pain, denies myalgia. NEUROLOGIC: Denies headache, numbness, or weakness. PSYCHIATRIC: Denies anxiety or depression. [facility] Past Medical History Medical History No active medical problems Family History Family History Sibling Heart murmur Sibling Tumor, thyroid Father Lung cancer Mother Breast cancer Lung cancer Social History Social History Smoking status: Never smoker Second hand tobacco smoke exposure: No Alcohol intake: never Substance use: never Substance use type: does not use Do You Feel Safe in your Home?: Yes Lack of Transportation: No Lack of Food: Never True Current Housing: I Have Housing Concerned About Future Housing: No Difficulty Paying Gas/Electric Bills: No Difficulty Paying for Meds: No Currently Unemployed: No Education: Bachelor's Degree Difficulty w/ Childcare or Family Care: No Living arrangements: with family Occupation/Education: occupation Gender identity (if verbalized by the patient): Female Sexual Orientation (if Verbalized by the Patient): Straight or Heterosexual Spiritual care concerns: No Comments At the time of my signature I agree with nursing past medical history, surgical, social, and family history. There is no relevant family history pertinent to the presenting complaint. Exam Narrative: GENERAL: Well-appearing, well-nourished, and in no acute distress. HEAD: Normocephalic, atraumatic. EYES: PERRLA and EOMI. ENT: Nares clear, no rhinorrhea or epistaxis. Mucous membranes moist. NECK: Supple. No lymphadenopathy CHEST: Clear to auscultation. No respiratory distress. HEART: Regular rate and rhythm. No murmur heard. Normal peripheral pulses. ABDOMEN: Soft, nontender, nondistended, normal active bowel sounds. EXTREMITIES: Patient able to bear weight and ambulate with mild pain. No surface trauma, ecchymosis, erythema, lesions, ulcers or break in skin integrity. The L foot is without obvious asymmetry or deformity when compared to the R foot. No bony step-off, tender to palpation over the left great toe, and jefferson
[2023-10-30 11:59] VITALS: BP 118/71; PULSE 79; RESP 16; TEMP 36.4; O2SAT 100
== END 2023-10-30 12:22 | disposition home or self-care (01) ==
PROVIDERS: Emergency Provider Nurse Practitioner Family; PCP Physician Assistant Medical
DX: S96.912A Strain of unspecified muscle and tendon at ankle and foot level, left foot, initial encounter (principal); X58.XXXA Exposure to other specified factors, initial encounter
CPT/HCPCS: 99212; G0463

== ENCOUNTER 2023-11-17 07:57 | Outpatient (CLI) | payer OTHER, SELFPAY | END 2023-11-17 07:58 | disposition home or self-care (01) | LOC: ANHSURGERY 08:01 | PROVIDERS: PCP Physician Assistant Medical; Visit Provider Obstetrics & Gynecology | DX: N92.0 Excessive and frequent menstruation with regular cycle (principal); Z01.818 Encounter for other preprocedural examination | CPT/HCPCS: 36415; 86850; 86900; 86901 ==

== ENCOUNTER 2023-11-23 01:27 | Day surgery (SDC) | payer OTHER, SELFPAY ==
[2023-11-14 14:38] VITALS: BMI 44.4
--- NOTE | 2023-11-14 14:52 | SUR.PREOP ---
Addendum entered by Ce Junior RN 11/15/23 10:24: You may take your control and topiramate the morning of surgery with a small sip of water. Original Note: Report to the Outpatient Waiting Room, entrance under the green pavilion located off [facility], at time 0600 on date 11/23/23. Planned Procedure Time: 0730. Time changes happen often and if your time is changed the preop area will call you the afternoon before. - You and your visitor will be asked to self-screen and do not enter if you have any COVID symptoms. - A mask is optional within the hospital at this time. Patients may have clear liquids (water, carbonated beverages, clear teas, apple juice) until 3 hours prior to surgery with a maximum of 20 ounces. - No food from midnight until time of surgery. - Infants may have breast milk until 4 hours before surgery, infant formula 6 hours prior to surgery. - Children will be allowed to drink immediately following surgery. If applicable, please bring a bottle or sippy cup to assist with drinking. Juice, water, soda, and popsicles are readily available. For infants on formula, please bring formula the day of surgery. Pacifiers are allowed. Take the following medications with a SIP of water the morning of surgery: ____n/a DO NOT STOP ANY OF YOUR OTHER PRESCRIPTION MEDICATIONS PRIOR TO SURGERY ?EXCEPT THE FOLLOWING Medications to discontinue per physician ___hold norethindrone, phentermine, topiramate morning of surgery Date to take last dose Please no make-up, nail portuguese, hairspray, perfume, deodorant, or body powder the day of surgery. No jewelry (including any body piercings) or valuables the day of surgery, leave them at home. Please take a shower or bath the night before, or the morning of, surgery with an antibacterial soap. Wear comfortable, loose fitting clothing. Children are encouraged to wear pajamas. - Jewelry must be removed prior to entering the operating room. Rings and piercings that are not removed may be cut off. - The hospital will not accept responsibility for valuables. - Please leave all valuables, including medications, at home the day of surgery. If you are going home after surgery, a licensed professional driver must drive you home. - NO public transportation without another adult if you receive anesthesia. - We recommend that an adult stay with you for 24 hours following discharge. - We also recommend that you do not drive, make important decision, drink alcoholic beverages, or take any drugs that were not prescribed by your health care provider for at least 24 hours after your discharge time. For Pediatric surgeries, we recommend two adults accompany the child home. Follow any additional instructions given to you from your surgeon. If you or anyone in your household have experienced Covid symptoms in the past week, please notify your surgeon or the nurse liaison at the phone number below for possible testing. Telephone instructions given to _patient_and asked if any additional questions and then verbalized understanding. Patient advised to call surgeon office or pre surgery nurse liaison [phone] if any additional questions.
[2023-11-23] VITALS (14 sets, daily range): BP systolic 104–144; BP diastolic 64–83; PULSE 52–88; RESP 12–16; TEMP 36.3–36.9; O2SAT 98–100
[2023-11-23] MEDS: ACETAMINOPHEN 500 MG TABLET 1000 MG PO (06:46)
[2023-11-23] MEDS: LACTATED RINGERS 1,000 ML 30 ML IV CONT ×3 (06:46→12:30)
[2023-11-23] MEDS: KETOROLAC 15 MG/ML VIAL (*BKC) IV PUSH (06:46)
--- NOTE | 2023-11-23 07:23 | WPDANESEPPF ---
Anes - Initial Pre Proc Eval Procedure: Operation Date: 11/23/23 08:15 Proposed Procedures p Total Laparoscopic Hysterectomy with Bilateral Salpingo Oophorectomy - Christos Cosby MD Date/Time: 11/23/23 07:23 Surgeon: Christos Cosby MD Pre Op Diagnosis: menorrhagia Patient Data Age: 38 Gender: F Height: 1.57 m Weight: 110.24 kg Last Vital Signs Temp 97.7 F 11/23/23 06:56 Pulse 81 11/23/23 06:56 BP 135/75 11/23/23 06:56 Pulse Ox 100 11/23/23 06:56 O2 Del Method Room Air 11/23/23 06:56 Allergies Allergy/AdvReac Type Severity Reaction Status Date / Time Sulfa (Sulfonamide AdvReac Severe HIVES, Verified 10/30/23 12:02 Antibiotics) ITCHY Home Medications Medication Instructions Recorded Confirmed Type phentermine 15 mg capsule 15 mg PO DAILY #30 caps 09/15/23 11/23/23 Rx topiramate 25 mg tablet (Topamax) 25 mg PO DAILY #30 tabs 09/15/23 11/23/23 Rx norethindrone (contraceptive) 0.35 0.35 mg PO DAILY 10/30/23 11/23/23 History mg tablet (Shantell) Patient hx anesthesia problems: none Family hx anesthesia problems: none Results Review: All pre-operative results and documents have been reviewed as part of the pre-operative evaluation. [facility] Past Medical History Medical History No active medical problems Family History Family History Sibling Heart murmur Sibling Tumor, thyroid Father Lung cancer Mother Breast cancer Lung cancer Social History Social History Smoking status: Never smoker Second hand tobacco smoke exposure: No Alcohol intake: never Substance use: never Substance use type: does not use Do You Feel Safe in your Home?: Yes Lack of Transportation: No Lack of Food: Never True Current Housing: I Have Housing Concerned About Future Housing: No Difficulty Paying Gas/Electric Bills: No Difficulty Paying for Meds: No Currently Unemployed: No Education: Bachelor's Degree Difficulty w/ Childcare or Family Care: No Living arrangements: with family Occupation/Education: occupation Gender identity (if verbalized by the patient): Female Sexual Orientation (if Verbalized by the Patient): Straight or Heterosexual Spiritual care concerns: No Anes - Eval Final PreProcedure Day of Procedure 11/23/23 07:23 Patient weight: obese Heart: regular rate and rhythm Lungs: clear to auscultation Airway: Mallampati scale and special considerations Neurological: alert and oriented Last oral intake: >/= 8 hours ASA classification: II Emergent: no Anesthetic plan: proceed Anesthesia type and monitoring: general ETT and standard monitoring Results Review: All pre-operative results and documents have been reviewed as part of the pre-operative evaluation. VICKIE, pt noncompliant w CPAP. Informed Consent: The patient's anesthetic plan and its attendant risks and benefits were discussed with the patient/family/POA. Questions were solicited and answers provided to the satisfaction of the patient/family/POA.
--- NOTE | 2023-11-23 08:26 | WPDHPUPDATE1 ---
History and Physical Update Update Date/Time: 11/23/23 08:26 History and Physical has been reviewed, including an updated exam of the patient. There are NO changes in the patient's condition. Risks, benefits, and alternatives have been discussed and questions answered. Patient agrees to proceed with procedure.
[2023-11-23] MEDS: ceFAZolin 2 GM/D5W 50 ML 2 GM/50 ML BAG IVPB (09:18)
--- NOTE | 2023-11-23 09:22 | W.PM.OBCSD ---
OB - Delivery Note Procedure Delivery date: 11/23/23 Pre-op diagnosis: Non-Reassuring Status Post-op Diagnosis: Same Procedure Performed: Repeat Surgeon: Christos Cosby MD Anesthesia type: Epidural Description of Procedure/Findings: The patient was taken the operating room.? She was prepped and draped in dorsal supine position with a leftward tilt.? This was done after spinal anesthetic was applied.? A low-transverse skin incision was made and carried down till of the fascia with the knife.? The fascial incision was made with the knife.? The fascial incision was extended laterally with Powers scissors.? The fascia was tented upward superiorly and inferiorly the rectus muscles were dissected off bluntly.? The rectus muscles were the midline.? The preperitoneal fat and peritoneum were dissected open bluntly at the superior aspect of the rectus muscles.? The peritoneal incision was extended superior and inferior with good position of bladder.? The uterine incision was made with a scalpel down to the level of the amniotic cavity.? The amniotic cavity was entered bluntly.? The was delivered.? The cord was clamped and cut and the was handed off to waiting pediatric staff.? Cord bloods were obtained.? The placenta was removed manually.? The uterus was exteriorized.? The uterus was cleared of all clots, debris and membranes.? The uterus was closed in 0 Vicryl running lock fashion.? An imbricating over a was placed along the incision line as well.? The uterus was returned to the abdomen.? The gutters were cleared of all clots and debris.? The fascia was closed with 0 Vicryl running fashion.? The subcutaneous tissue was irrigated pinpoint bleeders were cauterized.? The skin was closed with subcuticular absorbable татьяна.? The skin incision line was covered with glue.? The patient tolerated the procedure well.? She has taken recovery room in stable condition.? Sponge lap and needle counts were correct x2.? [place] [facility] Weeks of gestation at delivery: 39
[2023-11-23] MEDS: ceFAZolin SODIUM 1 GM VIAL (10:18)
[2023-11-23] MEDS: METHYLENE BLUE 0.5% INJ 10 ML AMPULE IRRIGATION (11:25)
[2023-11-23] MEDS: fentaNYL CITRATE INJ (*CRX) 100 MCG/2 ML VIAL 25 MCG IV PUSH ×7 (12:25→14:13)
--- NOTE | 2023-11-23 12:25 | W.PM.PROC2 ---
Procedure Note - Detailed Date of Procedure 11/23/23 Pre-op Diagnosis menorrhagia Post-op Diagnosis Same Procedure Performed Total laparoscopic hysterectomy and bilateral salpingo-oophorectomy. Surgeon Christos Cosby MD Anesthesia General Findings enlarged fibroid uterus, normal-appearing tubes and ovaries. , marked vascularity or cervix and pelvic sidewalls Description of Procedure This patient was taken to the operating room. She was prepped and draped in the dorsal lithotomy position after induction of general anesthesia. The uterine manipulator and Susan cup were placed. This was done with a speculum and tenaculum. The speculum was placed. The cervix was grasped with a tenaculum. The stay sutures were placed at 3 and 9:00 a.m.. The stay sutures of 0 Vicryl were brought through the appropriately sized Susan cup. The tip of the BETTY manipulator was placed in the intrauterine cavity. The cup was slid into place around the cervix and into the fornices. It was locked into place. The sutures were then wrapped around the handle and tied under tension. A 5 mm skin incision was made in the left upper quadrant the abdomen. A 5 mm trocar was inserted into the intrauterine cavity under direct visualization of the scope. Pneumoperitoneum was achieved. A left lower quadrant 11 mm incision was made with scalpel. An 11 mm trocar was inserted into the anterior abdominal cavity under direct visualization the scope. A 5 mm infraumbilical incision was made with a scalpel and a 5 mm trocar was inserted the intra-abdominal cavity under direct visualization of the scope. Bilateral ureteral lysis was performed. This was done from the pelvic brim down to the uterine artery. This was done with careful dissection using sharp and blunt dissection. The infundibulopelvic ligaments were isolated after identification of the ureters bilaterally. These infundibulopelvic ligaments were cauterized and transected with LigaSure cautery. The para ovarian tissue was cauterized and transected with LigaSure cautery bilaterally. Moving around the ovary into the broad ligament the tissue was cauterized transected with LigaSure cautery. The round ligaments were cauterized transected with LigaSure cautery this was all done in a bilateral fashion. In a stepwise fashion along the lateral aspects of the uterus the round ligament and broad ligaments were cauterized transected down to the level of the uterine arteries. A bladder flap was created in the bladder was moved distally to the end of the cervix and over the Susan cup. The bilateral uterine arteries were cauterized and transected. Colpotomy was then performed. In a circumferential fashion the vagina was transected using unipolar cautery. The incision was made down on the Susan cup. The uterus, cervix, fallopian tubes and ovaries were taken out through the vagina. A pneumo occluder was placed in the vagina. The vaginal cuff was closed with a 0 V lock suture in a running fashion. The pelvis was irrigated with copious amounts antibiotic irrigation. The ureters were again examined and found to be intact and flowing freely under the uterine arteries into the bladder. Cystoscopy was performed. The cystoscope was inserted in the ureteral orifices were examined. methylene blue had been previously given was seen to egress from both ureteral orifices. The bladder was intact . The cystoscope was withdrawn. The vagina was irrigated with Betadine solution after removal of the Pneumo occluder. The patient was taken to recovery room. She was stable condition. Sponge lap and needle counts were correct x2. Drains Yes Packing No Pathology Yes Complications No immediate complications Condition Stable Disposition Floor
[2023-11-23] MEDS: FUROSEMIDE INJ 40 MG/4 ML VIAL IV PUSH (13:36)
[2023-11-23] MEDS: DEXTROSE 5%/0.45% SOD CHL 1,000 ML 125 ML IV CONT (14:52)
[2023-11-23] MEDS: SIMETHICONE 80 MG TAB.CHEW PO (16:53)
[2023-11-23] MEDS: HYDROcodone/acetaminophen (*CRX) 5-325 MG TABLET 1 TAB PO (16:55)
[2023-11-23] MEDS: IBUPROFEN 600 MG TABLET PO (16:56)
[2023-11-24 05:22] VITALS: BP 115/61; PULSE 92; RESP 16; RESP 18; TEMP 36.9; O2SAT 97
[2023-11-24] MEDS: HYDROcodone/acetaminophen (*CRX) 5-325 MG TABLET 1 TAB PO (05:33)
[2023-11-24] MEDS: TOPIRAMATE 25 MG TABLET PO (07:47)
[2023-11-24] MEDS: SIMETHICONE 80 MG TAB.CHEW PO (07:47)
--- NOTE | 2023-11-24 07:49 | PM.GYNPNOP ---
[employer] - A/P Postoperative Procedures: Procedures Operation Date: 11/23/23 08:15 Actual Procedure Side Surgeon p Total Laparoscopic Hysterectomy with Bilateral Salpingo Oophorectomy Bilateral Christos Cosby MD Postoperative day: 1 Postoperative status: doing well Postoperative plan: see orders Time Spent With Patient Time: Total time spent is greater than 50% in coordination of care (as documented) at patient's floor/unit and/or counseling patient: Time with patient: less than 15 minutes [employer]- PN:Subj Post-Op Subjective Date/time seen: 11/24/23 07:49 Subjective: patient reports feeling better, patient has no complaints and pain is well controlled Exam Const: General: healthy appearing, comfortable and no acute distress Resp: Auscultation: clear to auscultation bilaterally, no rales, no rhonchi and no wheezes Cardio: Rate: regular rate Heart sounds: no click, no murmurs and no rubs GI: Inspection: non-distended Auscultation: normal bowel sounds Extrem: General: normal to inspection, no pedal edema and no calf tenderness [employer] - PN: Obj Data Vital Signs Vital Signs: Vital Signs - 24 hr 11/23/23 12:00 11/23/23 12:15 11/23/23 12:30 Temperature 97.8 F Pulse Rate 71 66 63 Respiratory Rate 14 13 Blood Pressure 130/75 132/74 136/70 Pulse Oximetry 100 100 100 Oxygen Delivery Simple Face Mask Simple Face Mask Room Air Oxygen Flow Rate 8 8 11/23/23 12:20 11/23/23 12:45 11/23/23 13:15 Temperature Pulse Rate 58 L 60 Respiratory Rate 14 12 Blood Pressure 144/68 H 144/68 H Pulse Oximetry 100 100 100 Oxygen Delivery Room Air Room Air Room Air Oxygen Flow Rate 11/23/23 13:30 11/23/23 13:00 11/23/23 13:45 Temperature Pulse Rate 62 62 52 L Respiratory Rate 14 12 12 Blood Pressure 129/73 129/73 134/83 Pulse Oximetry 100 100 100 Oxygen Delivery Room Air Room Air Room Air Oxygen Flow Rate 11/23/23 14:00 11/23/23 14:25 11/23/23 21:44 Temperature 97.3 F L 98.4 F Pulse Rate 62 70 88 Respiratory Rate 14 16 16 Blood Pressure 132/72 112/67 114/65 Pulse Oximetry 100 100 98 Oxygen Delivery Room Air Oxygen Flow Rate 11/23/23 21:44 11/23/23 23:55 11/23/23 23:55 Temperature 97.8 F Pulse Rate 88 79 79 Respiratory Rate 16 16 16 Blood Pressure 104/64 Pulse Oximetry 100 99 99 Oxygen Delivery Room Air Room Air Oxygen Flow Rate 11/24/23 05:22 11/24/23 05:22 Temperature 98.5 F Pulse Rate 92 92 Respiratory Rate 18 16 Blood Pressure 115/61 Pulse Oximetry 97 97 Oxygen Delivery Room Air Oxygen Flow Rate Intake/Output Intake/Output: Intake & Output 11/21/23 11/22/23 11/23/23 11/24/23 23:59 23:59 23:59 23:59 Intake Total 833.3 450 Output Total 2385 100 Balance -1551.7 350 Meds/Results Medications: Active Medications Generic Name Dose Route Start Last Admin Trade Name Freq PRN Reason Stop Dose Admin Hydrocodone Bitart/Acetaminophen 1 tab 11/23/23 14:17 11/24/23 05:33 Hydrocodone/Acetaminophen (*Crx) 5-325 Mg Tablet PO 1 tab Q3H PRN Administration Pain Rated 5 or Less Hydrocodone Bitart/Acetaminophen 1 tab 11/23/23 14:17 Hydrocodone/Acetaminophen (*Crx) 10-325 Mg Tablet PO Q3H PRN Pain Rated 6 or Greater Dextrose/Sodium Chloride 1,000 mls @ 125 mls/hr 11/23/23 14:17 11/23/23 17:08 Dextrose 5% Sodium Chloride 0.45% IV CONT 0 mls/hr .Q8H KHUSHI Infusion Ibuprofen 600 mg 11/23/23 14:17 11/23/23 16:56 Ibuprofen 600 Mg Tablet PO 600 mg Q6H PRN Administration Cramping Ketorolac Tromethamine 30 mg 11/23/23 14:17 Ketorolac 30 Mg/Ml Vial (*Bkc) IV PUSH 11/28/23 14:16 Q6H PRN Pain Rated 4-6 Naloxone HCl 0.1 mg 11/23/23 14:17 Naloxone Hcl 0.4 Mg/Ml Vial IV PUSH Q2M PRN Respiratory rate less than 10 Ondansetron HCl 4 mg 11/23/23 14:17 Ondansetron Inj 4 Mg/2 Ml Vial IV PUSH Q6H PRN Nausea And Vomiting Simethicone 80 mg 11/23/23 17:00 0
[2023-11-24 07:50] VITALS: BP 127/62; PULSE 87; RESP 16; TEMP 37.2; O2SAT 99
== END 2023-11-24 10:00 | disposition home or self-care (01) ==
LOC: ANHSURGERY 07:22 → ANHOB2 14:19
PROVIDERS: PCP Physician Assistant Medical; Visit Provider Obstetrics & Gynecology
PROC: 0UT9FZZ Resection of Uterus, Via Natural or Artificial Opening With Percutaneous Endoscopic Assistance (ICD-10-PCS; CPT 58571; principal; 2023-11-23 08:15)
DX: D27.0 Benign neoplasm of right ovary (principal); N92.0 Excessive and frequent menstruation with regular cycle; N72 Inflammatory disease of cervix uteri; N88.8 Other specified noninflammatory disorders of cervix uteri; N87.9 Dysplasia of cervix uteri, unspecified; N83.8 Other noninflammatory disorders of ovary, fallopian tube and broad ligament; E66.9 Obesity, unspecified; Z68.41 Body mass index [BMI] 40.0-44.9, adult
CPT/HCPCS: 58571; 36415; 86850; 86900; 86901; 88307; 99199; A9270; J0690; J1100; J1170; J1200; J1885; J1940; J2250; J2405; J2704; J3010; J7030; J7120; Q9968

== ENCOUNTER 2023-11-25 18:06 | Emergency (ER) | payer OTHER, SELFPAY ==
[2023-11-25 18:08] VITALS: BP 136/64; PULSE 93; RESP 20; TEMP 36.5; O2SAT 98
[2023-11-25 19:10] VITALS: BP 130/65; PULSE 81; RESP 20; O2SAT 100
[2023-11-25 19:50] LABS: Basophils Percent Auto 0.2 % (0.2-1.2); Eosinophils Absolute Auto 0.1 K/mm3 (0-0.3); Eosinophils Percent Auto 0.9 % (0-4.4); Hematocrit 32.7 % (37.0-47.0); Hemoglobin 10.4 g/dL (12.0-15.0); Immature Granulocyte Absolute 0.05 K/mm3 (0.00-0.031); Immature Granulocyte Percent A 0.4 % (0-0.5); Lymphocytes Absolute Auto 1.64 K/mm3 (0.9-3.2); Lymphocytes Percent Auto 13.2 % (18.3-44.2); Mean Corpuscular HGB Conc 31.8 g/dl (32-36); Mean Corpuscular Hemoglobin 25.1 pg (26-34); Mean Corpuscular Volume 78.8 fl (80-100); Mean Platelet Volume 9.7 fl (7.4-10.4); Monocytes Absolute Auto 0.7 K/mm3 (0.1-0.6); Monocytes Percent Auto 5.7 % (2.6-8.5); Neutrophils Absolute Auto 9.9 K/mm3 (1.3-6.7); Neutrophils Percent Auto 79.6 % (45.5-73.1); Platelet Count Result 340 k/mm3 (150-375); Red Blood Count 4.15 M/mm3 (4.2-5.4); Red Cell Distribution Width 15.8 % (11.5-14.5); White Blood Count 12.4 K/mm3 (4.5-10.0)
--- NOTE | 2023-11-25 19:51 | ED.DIZZY ---
HPI - Dizziness General Chief Complaint: Dizziness Stated Complaint: s/p hyst 11/22, dizziness Time Seen by Provider: 11/25/23 19:03 History of Present Illness HPI Narrative: Patient presenting with some lightheadedness and nausea today; states she had 2 episodes, once after using the restroom, and once after she had come of the shower. She had recent hysterectomy 2 days ago and denies abdominal pain Related Data Home Medications Medication Instructions Recorded Confirmed norethindrone (contraceptive) 0.35 0.35 mg PO DAILY 10/30/23 11/23/23 mg tablet (Shantell) Allergies Allergy/AdvReac Type Severity Reaction Status Date / Time Sulfa (Sulfonamide AdvReac Severe HIVES, Verified 10/30/23 12:02 Antibiotics) ITCHY PMFSH Past Medical History Medical History No active medical problems Family History Family History Sibling Heart murmur Sibling Tumor, thyroid Father Lung cancer Mother Breast cancer Lung cancer Social History Social History Smoking status: Never smoker Second hand tobacco smoke exposure: No Alcohol intake: never Substance use: never Substance use type: does not use Do You Feel Safe in your Home?: Yes Lack of Transportation: No Lack of Food: Never True Current Housing: I Have Housing Concerned About Future Housing: No Difficulty Paying Gas/Electric Bills: No Difficulty Paying for Meds: No Currently Unemployed: No Education: Bachelor's Degree Difficulty w/ Childcare or Family Care: No Living arrangements: with family Occupation/Education: occupation Gender identity (if verbalized by the patient): Female Sexual Orientation (if Verbalized by the Patient): Straight or Heterosexual Spiritual care concerns: No Course Vital Signs Vital signs: Vital Signs Temperature 97.7 F 11/25/23 18:08 Pulse Rate 93 11/25/23 18:08 Respiratory Rate 20 11/25/23 18:08 Blood Pressure 136/64 11/25/23 18:08 Pulse Oximetry 98 11/25/23 18:08 Oxygen Delivery Room Air 11/25/23 18:08 Temperature 97.7 F 11/25/23 18:08 Pulse Rate 81 05/24/24 19:10 Respiratory Rate 20 11/25/23 19:10 Blood Pressure 130/65 11/25/23 19:10 Pulse Oximetry 100 11/25/23 19:10 Oxygen Delivery Room Air 11/25/23 18:08 MDM - Dizziness MDM Narrative Medical decision making narrative: Patient presents with 2 episodes of lightheadedness once after going to the bathroom, once after coming out of the shower. She is currently asymptomatic and denies any complaints, she has no abdominal pain, no discharge or dysuria or bleeding. Doubt any postop complications given her benign exam, she is very well-appearing here, speaking normally, abdomen soft nontender. She is worried that her hemoglobin might be low, we did obtain blood work here and hemoglobin is stable, white count is slightly elevated but has actually improved from the last time she was here, and her potassium is slightly low but is repleted. I did inform her of the findings, she denies any complaints still, I will have her follow-up with her primary care doctor and OBGYN and come back to the hospital she feels worse. Patient agreeable to this plan. Lab Data 11/25/23 19:45 11/25/23 19:45 Labs: Lab Results 11/25/23 Range/Units 19:45 WBC 12.4 H (4.5-10.0) K/mm3 RBC 4.15 L (4.2-5.4) M/mm3 Hgb 10.4 L (12.0-15.0) g/dL Hct 32.7 L (37.0-47.0) % MCV 78.8 L (80-100) fl MCH 25.1 L (26-34) pg MCHC 31.8 L (32-36) g/dl RDW 15.8 H (11.5-14.5) % Plt Count 340 (150-375) k/mm3 MPV 9.7 (7.4-10.4) fl Immature Gran % (Auto) 0.4 (0-0.5) % Neut % (Auto) 79.6 H (45.5-73.1) % Lymph % (Auto) 13.2 L (18.3-44.2) % [place] % (Auto) 5.7 (2.6-8.5) % Eos % (Auto) 0.9 (0-4.
[2023-11-25 19:59] LABS: Anion Gap 7 mmol/L (4-12); Blood Urea Nitrogen 13 mg/dL (7-17); Calcium 8.5 mg/dL (8.4-10.2); Carbon Dioxide 24 mmol/L (22-30); Chloride 107 mmol/L (98-107); Estimated CRCL calculation 99 ml/min; Estimated Glomerular Filt Rate > 60; Glucose 100 mg/dL (65-110); Potassium 3.3 mmol/L (3.4-5.0); Sodium 138 mmol/L (137-145)
[2023-11-25] MEDS: POTASSIUM CHLORIDE 20 MEQ ER TABLET 40 MEQ PO (20:24)
[2023-11-25 20:37] VITALS: BP 139/79; PULSE 87; RESP 18; O2SAT 100
== END 2023-11-25 20:38 | disposition home or self-care (01) ==
PROVIDERS: Emergency Provider Emergency Medicine; PCP Physician Assistant Medical
DX: R55 Syncope and collapse (principal); Z98.890 Other specified postprocedural states
CPT/HCPCS: 36415; 80048; 85025; 99283; A9270

== ENCOUNTER 2024-06-18 07:36 | Outpatient (CLI) | payer OTHER, SELFPAY ==
--- NOTE | ~2024-06-18 | MM_ITS ---
EXAMINATION: MM screening shashi BI w lin HISTORY: Screening TECHNIQUE: Craniocaudal and mediolateral oblique 3-D tomosynthesis images were obtained and synthetic 2-D images were generated. CAD analysis was submitted and interpreted. COMPARISON: No prior mammogram is available for comparison at this institution. BREAST PARENCHYMAL COMPOSITION: Not dense: There are scattered areas of fibroglandular density. FINDINGS: There is no evidence of suspicious mass, calcification, or architectural distortion to sugg est malignancy in either breast. There has been no suspicious interval change. IMPRESSION: 1. No mammographic evidence of malignancy. 2. Recommend routine screening mammography in one year. BI-RADS Category 1: Negative Reviewed, dictated and finalized at location B. OPERATOR
--- OUTSIDE RECORDS SUMMARY | 2024-06-23 20:12 | XMS_ITS | Encounter Summary ---
Author Organization [facility] Address [facility]. 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 Name Role Phone Unavailable Primary Care Provider Unavailabl e Encounter Details Date Type Department Care Team (Late st Contact Info) Description 02/27/2015 Abstract [facility] Family & Internal Medicine [facility] [address] [place] [address] [place] [address] [place], [place] [id number] Social History Tobacco Use Types Packs/Day Years Used Date Smoking Tobacco: Never Assessed Comments Unknown Sex and Gender Information Value Date Recorded Sex Assigned at Not on file Legal Sex Female 8:11 PM CDT Gender Identity Not on file Sexual Orientation Not on file documented as of this encounter Last Filed Vital Signs Vital Sign Reading Time Taken Comments Blood Pressure 120/80 02/27/2015 1:41 PM CDT Pulse 78 02/27/2015 1:41 PM CDT Temperature - - Respiratory Rate - - Oxygen Saturation - - Inhaled Oxygen Concentration - - Weight 112 kg (247 lb) 02/27/2015 1:41 PM CDT Height 157.5 cm (5' 2 ) 02/27/2015 1:41 PM CDT Body Mass Index 45.18 02/27/2015 1:41 PM CDT documented in this encounter Progress Notes * NICK Gerardo - 02/27/2015 1:30 PM CDT Reason For Visit Chronic Recheck Visit Chief Complaint wants to discuss her sleep study results. They did dx her with sleep apnea. She hasn't gotten the supplies yet. also, wants to discuss wt loss. History of Present Illness HPI Free Text: Aislinn is here to discuss weight loss. Obesity (Brief): The patient is being seen for an initial evaluation of an existing diagnosis of obesity. Symptoms: excess weight and inability to lose weight. The patient is currently experiencing symptoms. Associated symptoms: depressed mood. The patient is not currently being treated for this problem. No associated conditions are noted. Reported interest in weight loss is high. Current diet includes unhealthy food choices. Review of Systems See HPI for pertinent positives. Constitutional: Normal. ENT: normal. Cardiovascular: Normal. Respiratory: Normal. Gastrointestinal: Normal. Genitourinary: Normal. Neurological: Normal. Active Problems 1. Anxiety (300.00) (F41.9) 2. Fatigue (780.79) (R53.83) 3. Obesity (278.00) (E66.9) 4. VICKIE (obstructive sleep apnea) (327.23) (G47.33) Past Medical History 1. History of Screening for deficiency anemia (V78.1) (Z13.0) 2. History of Screening for diabetes mellitus (V77.1) (Z13.1) 3. History of Screening for hyperlipidemia (V77.91) (Z13.220) 4. History of Screening for thyroid disorder (V77.0) (Z13.29) 5. History of Tooth infection (522.4) (K04.7) Surgical History 1. History of Hip Surgery 2. 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 Managed by Cleft Palate Team with [facility]. Dr. Cleopatra PRINGLE Family History Mother 1. Family history of cardiac disorder (V17.49) (Z82.49) 2. Family history of hypertension (V17.49) (Z82.49) Brother 3. Family history of heart murmur (V17.49) (Z82.49) Maternal Grandmother 4. Family history of malignant neoplasm (V16.9) (Z80.9) Paternal Grandmother 5. Family history of diabetes mellitus (V18.0) (Z83.3) Maternal Grandfather 6. Family history of Brainstem stroke syndrome Paternal Grandfather 7. Family history of malignant neoplasm (V16.9) (Z80.9) Paternal Uncle 8. Family history of malignant neoplasm (V16.9) (Z80.9) Social History ?? Alcohol use (V49.89) (F10.99) ?? Caffeine use (V49.89) (Z78.9) ? Never a smoker ?? No drug use Current Meds 1. Citalopram Hydrobromide 10 MG Oral Tablet; TAKE 1 TABLET DAILY; Therapy: 13Dec2014 to (Evaluate:[id number]) Requested for: 13Dec2014; Last Rx:13Dec2014 Ordered Allergies 1. Sulfa Drugs Vitals Recorded: 27Feb2015 01:41PM Temperature 98 F Heart Rate 78 Systolic 120 Diastolic 80 O2 Saturation 99 Height 5 ft 2 in Weight 247 lb BMI Calculated 45.18 BSA Calculated 2.09 Physical Exam Constitutional General appearance: Abnormal. Patient was observed to be. Eyes Conjunctiva and lids: No swelling, erythema or discharge. Ears, Nose, Mouth, and Throat External inspection of ears and nose: Normal. Otoscopic examination: Tympanic membranes translucent with normal light reflex. Canals patent without erythema. Oropharynx: Normal with no erythema, edema, exudate or lesions. Pulmonary Respiratory effort: No increased work of breathing or signs of respiratory distress. Auscultation of lungs: Clear to auscultation. Cardiovascular Auscultation of heart: Normal rate and rhythm, normal S1 and S2, without murmurs. Examination of extremities for edema and/or varicosities: Normal. Abdomen Abdomen: Abnormal. The abdomen was obese. Bowel sounds were normal. The abdomen was soft. Lymphatic Palpation of lymph nodes in neck: No lymphadenopathy. Skin Skin and subcutaneous tissue: Normal without rashes or lesions. Neurologic Cranial nerves: Cranial nerves 2-12 intact. Psychiatric Orientation to person, place, and time: Normal. Mood and affect: Normal. Assessment 1. Obesity (278.00) (E66.9) Plan Need to see you make an effort towards weight loss before will consider weight loss medication. Keep dietary log and include physical activity. Recommend 150 minutes per week of physical activity. This can be walking, elliptical, swimming, etc. Return to office when ready. Discussion/Summary Discussed calorie restriction and well balanced diet. 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 She also asked for a referral for weight loss surgery. Told her I canmake that after she finds a surgeon who will take her insurance. She stated understanding. Signatures Electronically signed by : Elmira Delgado APN; Mar 03 2015 5:24AM LOW [employer]IT[employer] GUNNER (Author) documented in this encounter Plan of Treatment Not on file documented as of this encounter Visit Diagnoses Not on filedocumented in this encounter
--- OUTSIDE RECORDS SUMMARY | 2024-06-23 20:12 | XMS_ITS | Encounter Summary ---
Author Organization [facility] Address [facility]. 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 Name Role Phone Unavailable Primary Care Provider Unavailabl e Encounter Details Date Type Department Care Team (Late st Contact Info) Description 03/26/2015 Abstract [facility] Family & Internal Medicine [facility] [address] [place] [address] [place] [address] [place], [place] [phone] Social History Tobacco Use Types Packs/Day Years Used Date Smoking Tobacco: Never Assessed Comments Unknown Sex and Gender Information Value Date Recorded Sex Assigned at Not on file Legal Sex Female 8:11 PM CDT Gender Identity Not on file Sexual Orientation Not on file documented as of this encounter Last Filed Vital Signs Vital Sign Reading Time Taken Comments Blood Pressure 114/68 03/26/2015 9:56 AM CDT Pulse 80 03/26/2015 9:56 AM CDT Temperature - - Respiratory Rate - - Oxygen Saturation - - Inhaled Oxygen Concentration - - Weight 112.5 kg (248 lb) 03/26/2015 9:56 AM CDT Height 157.5 cm (5' 2 ) 03/26/2015 9:56 AM CDT Body Mass Index 45.36 03/26/2015 9:56 AM CDT documented in this encounter Progress Notes * Morgan Gil NP - 03/26/2015 10:00 AM CDT Reason For Visit Reason For Visit: Acute Visit Chief Complaint pt here c/o sore throat and fever for 3 days. History of Present Illness HPI Free Text: 30 y/o female with sore throat for 6 days with initial fever after both children sick with viral illnesses. she continues to have sweats, no temp as taking ibuprofen or tylenol around the clock. her previous dr. would give her an antibiotic and shot of something Pharyngitis: Aislinn Michaud is being seen for initial evaluation of pharyngitis. She noted suddenonset of. The symptoms began 6 day(s) ago. Current symptoms: sore throat, dysphagia, odynophagia and headache, no myalgias, no nausea and no vomiting. Exacerbating factors: swallowing liquids and swallowing solids. Overall, the patient reports symptoms are getting worse. Exposure history: URI symptoms. Associated symptoms: dysphagia, headache, odynophagia, otalgia, sore throat and fever/chills, no abdominal pain/discomfort, no anorexia, no cough, no hoarsness, no myalgia, no nausea, no neck stiffness, no rash and no vomiting. Current treatment includes decongestants and oral analgesic/anti-inflammatory medication. Review of Systems Constitutional: feeling poorly and headache, but no fever, no chills and not feeling tired (sweats at times). The patient presents with complaints of earache, described as throbbing, radiating to the right neck (discomfort throat to right ear and glands in neck). (cleft palate repair) Cardiovascular: Normal. Respiratory: Normal. Gastrointestinal: Normal. Genitourinary: Normal. Integumentary: Normal. Musculoskeletal: Normal. Neurological: Normal. Psychiatric: Normal. Active Problems 1. Anxiety (300.00) (F41.9) [...] ?? Managed by Cleft Palate Team with [facility]. Dr. Whelan ENT Family History Mother 1. Family history of [...] use (V49.89) (F10.99) ?? Caffeine use (V49.89) (F15.90) ? Never a smoker ?? No drug use Current Meds 1. Citalopram Hydrobromide 10 MG Oral Tablet; TAKE 1 TABLET DAILY; Therapy: 13Dec2014 to (Evaluate:13Mar2015) Requested for: 13Dec2014; Last Rx:13Dec2014 Ordered Rx By: Yefri Boyce; Dispense: 30 Days ; #:30 Tablet; Refill: 2; For: Anxiety; CORETTA = N; Verified Transmission to [facility] [id number]; Last Updated By: Sistemic; 12/13/2014 2:40:24 PM Allergies 1. Sulfa Drugs Itching; Swelling; Recorded By: Matteo Anand; 09/03/2014 9:07:30 AM Vitals Recorded: 26Mar2015 09:56AM Temperature 98.3 F Heart Rate 80 Systolic 114 Diastolic 68 O2 Saturation 98 Height 5 ft 2 in Weight 248 lb BMI Calculated 45.36 BSA Calculated 2.09 Physical Exam Constitutional General appearance: Abnormal. Obese. Eyes Conjunctiva and lids: No swelling, erythema or discharge. Pupils and irises: Equal, round and reactive to light. Ears, Nose, Mouth, and Throat External inspection of ears and nose: Normal. Otoscopic examination: Abnormal. TMs dull pink without bulging. Oropharynx: Abnormal. Red inflammed throat with enlarged tonsils without exudate, handles secretions well. Pulmonary Respiratory effort: No increased work of breathing or signs of respiratory distress. Auscultation of lungs: Clear to auscultation. Cardiovascular Auscultation of heart: Normal rate and rhythm, normal S1 and S2, without murmurs. Lymphatic Palpation of lymph nodes in neck: Abnormal. Enlarged ant cerv nodes, right tender, no post cerv nodes. Musculoskeletal Gait and station: Normal. Skin Skin and subcutaneous tissue: Normal without rashes or lesions. Neurologic Cranial nerves: Cranial nerves 2-12 intact. Psychiatric Orientation to person, place, and time: Normal. Mood and affect: Normal. Assessment 1. Pharyngitis with viral syndrome (462,079.99) (J02.9,B34.9) Plan Pharyngitis with viral syndrome 1. Amoxicillin 500 MG Oral Capsule; take 1 capsule TID until all have been taken Rx By: Morgan Gil; Dispense: 0 Days ; #:30 Capsule; Refill: 0; For: Pharyngitis with viral syndrome; CORETTA = N; Verified Transmission to [facility]; Last Updated By: Sistemic; 03/26/2015 10:14:33 AM 2. PredniSONE 20 MG Oral Tablet; 2 tablets daily for 7 days; take with food Rx By: Morgan Gil; Dispense: 0 Days ; #:14 Tablet; Refill: 0; For: Pharyngitis with viral syndrome; CORETTA = N; Verified Transmission to [facility] [id number]; Last Updated By: Sistemic; 03/26/2015 10:14:36 AM 3. Avoid exposure to cigarette smoke.; Status:Active; Requested for:[id number]; Ordered; For:Pharyngitis with viral syndrome; Ordered By:Morgan Gil; 4. Drink plenty of fluids.; Status:Active; Requested for:[id number]; Ordered; For:Pharyngitis with viral syndrome; Ordered By:Morgan Gil; 5. Gargle with warm salt water for 5 minutes every 4 hours.; Status:Active; Requested for:[id number]; Ordered; For:Pharyngitis with viral syndrome; Ordered By:Morgan Gil; 6. Gargle with warm water for 5 minutes every 4 hours.; Status:Active; Requested for:[id number]; Ordered; For:Pharyngitis with viral syndrome; Ordered By:Morgan Gil; 7. Good hand washing is one of the best ways to control the spread of germs.; Status:Active; Requested for:[id number]; Ordered; For:Pharyngitis with viral syndrome; Ordered By:Morgan Gil; 8. Take steps to prevent passing germs to others.; Status:Active; Requested for:[id number]; Ordered; For:Pharyngitis with viral syndrome; Ordered By:Morgan Gil; continue with ibuprofen or tylenol and chloraseptic f/u prn Signatures Electronically signed by : Morgan Gil NP; Mar 26 2015 10:30AM HALL CLERK (Author) documented in this encounter Plan of Treatment Not on file documented as of this encounter Visit Diagnoses Not on filedocumented in this encounter
--- OUTSIDE RECORDS SUMMARY | 2024-06-23 20:12 | XMS_ITS | Encounter Summary ---
Author Organization [facility] Address [address] [place] [address]. [place], [place] [address] [place] [address] Care Team Providers Care Lifter Name Role Phone Bryanna Chavez PA-C Primary Care Provider [phone] Encounter Details Date Type Department Care Team (Latest Contact Info) Description 04/09/2020 Travel Social History Tobacco Use Types Packs/Day Years Used Date Smoking Tobacco: Never Assessed Comments No Sex and Gender Information Value Date Recorded Sex Assigned at Not on file Legal Sex Female 8:11 PM CDT Gender Identity Not on file Sexual Orientation Not on file COVID-19 Exposure Response Date Recorded In the last month, have you been in contact with someone who was confirmed or suspected to have Coronavirus / COVID-19? No / Unsure 04/09/2020 11:56 PM CDT documented as of this encounter Plan of Treatment Not on file documented as of this encounter Visit Diagnoses Not on filedocumented in this encounter Care Teams Lifter Relationship Specialty Start Date End Date Bryanna Chavez PA-C PCP - General NURSE PRACTITIONER 07/27/19 documented as of this encounter
--- OUTSIDE RECORDS SUMMARY | 2024-06-23 20:12 | XMS_ITS | Encounter Summary ---
Author Organization [facility] Address [facility]. [place], [place] [address] [place] [address] Care Team Providers Care School Bus Driver Name Role Phone Bryanna Chavez PA-C Primary Care Provider [phone] Reason for Visit * Reason Comments Abdominal Pain left lower radiates to back Encounter Details Date Type Department Care Team (Late st Contact Info) Description 04/09/2020 11:53 PM CDT - 04/10/2020 2:41 AM CDT Emergency [facility] Emergency Room [id number] [place] [address] Abdominal Pain (left lower radiates to back) Discharge Disposition: Home or Self Care (Routine Discharge) Social History Tobacco Use Types Packs/Day Years Used Date Smoking Tobacco: Never Smokeless Tobacco: Never Alcohol Use Standard Drinks/Week Comments Yes 0 (1 standard drink = 0.6 oz pur e alcohol) rarely Comments No Sex and Gender Information Value [...] PM CDT documented as of this encounter Last Filed Vital Signs Vital Sign Reading Time Taken Comments Blood Pressure 125/51 04/10/2020 2:31 AM CDT Pulse 94 04/09/2020 11:56 PM CDT Temperature 36.4 ??C (97.5 ??F) 04/09/2020 11:56 PM C DT Respiratory Rate 18 04/09/2020 11:56 PM CDT Oxygen Saturation 96% 04/10/2020 2:31 AM CDT Inhaled Oxygen Concentration - - Weight 122.5 kg (270 lb) 04/09/2020 11:56 PM CDT Height 160 cm (5' 3 ) 04/09/2020 11:56 PM CDT Body Mass Index 47.83 04/09/2020 11:56 PM CDT documented in this encounter Discharge Instructions * Attachments The following attachments cannot be sent through Care Everywhere. * Acute Pelvic Pain Discharge Instructions (Mexican) documented in this encounter Medications at Time of Discharge Acetaminophen-Cod eine (TYLENOL/CODEINE #3) 300-30 MG tabletIndications :Acute Pain < 3 Day Supply Take 1-2 tablets by mouth every 4 (four) hours as needed for Pain. Indications: Acute Pain < 3 Day Supply 12 tablet 04/10/2020 04/13/2020 documented as of this encounter ED Notes * Deya Goldsmith MD - 04/10/2020 1:00 AM CDT Chief Complaint Chief Complaint Patient presents with ??? Abdominal Pain left lower radiates to back History of Present Illness 35-year-old female with complaint of left lower quadrant pain for the past 2 days. Pain initially was intermittent and then became constant tonight at 6:30 PM. Pain has been progressively worsening and constant this evening. Patient describes the pain as cramping with stabbing and radiation to her back. He improved with the symptoms and nothing worsens it. Patient states she had similar pain to this in June 2019 was diagnosed with an ovarian cyst. Also she had an ultrasound done in showed that same cyst. Patient has been following up with the ovarian cyst with a keno dealer at [facility]. The patient became in August and subsequently had a miscarria ge and her ovarian cyst resolved. The patient is denying any nausea, vomiting, diarrhea, fever or chills. Pain is currently at a 7 out of 10. The patient took an amly-qrv-[id number] Advil with some relief. Patient is denying any dysuria, frequency or urgency. Past surgical history includes multiple cleft lip and palate surgeries Pmhx: none No smoke/etoh/drugs. History provided by: Patient Abdominal Pain Pain location: LLQ Pain quality: cramping and stabbing Pain radiates to: Does not radiate Pain severity: Mild Onset quality: Gradual Duration: 2 days Timing: Intermittent Progression: Worsening Chronicity: Recurrent Context: not alcohol use, not awakening from sleep, not medication withdrawal, not previous surgeries, not recent illness, not retching, not sick contacts, not suspicious food intake and not trauma Relieved by: NSAIDs Associated symptoms: no chest pain, no chills, no diarrhea, no dysuria, no fever, no hematuria, no nausea, no shortness of breath, no sore throat, no vaginal discharge and no vomiting Medical History ALLERGIES: Allergies Allergen Reactions ??? Sulfa Antibiotics Itching and Swelling MEDICATIONS: Prior to Admission medications Medication Sig Start Date End Date Taking? Authorizing Provider Acetaminophen-Codeine (TYLENOL/CODEINE #3) 300-30 MG tablet Take 1-2 tablets by mouth every 4 (four) hours as needed for Pain. Indications: Acute Pain < 3 Day Supply 04/10/20 04/13/20 Yes Deya Goldsmith MD PAST MEDICAL HISTORY: Past Medical History: Diagnosis Date ??? Bilateral ovarian cysts PAST SURGICAL HISTORY: Past Surgical History: Procedure Laterality Date ??? CLEFT LIP REPAIR 1984 FAMILY HISTORY: Family History Problem Relation Name Age of Onset ??? Hypertension Mother ??? Hyperlipidemia Mother ??? Cancer Father SOCIAL HISTORY: Social History Tobacco Use ??? Smoking status: Never Smoker ??? Smokeless tobacco: Never Used Substance Use Topics ??? Alcohol use: Yes Comment: rarely ??? Drug use: Not Currently Review of Systems Review of Systems Constitutional: Negative for activity change, appetite change, chills and fever. HENT: Negative for congestion and sore throat. Eyes: Negative for discharge and redness. Respiratory: Negative for chest tightness and shortness of breath. Cardiovascular: Negative for chest pain and leg swelling. Gastrointestinal: Positive for abdominal pain. Negative for diarrhea, nausea and vomiting. Genitourinary: Negative for dysuria, frequency, hematuria and vaginal discharge. Musculoskeletal: Negative for back pain and myalgias. Skin: Negative for pallor and rash. Neurological: Negative for dizziness and headaches. Psychiatric/Behavioral: Negative for agitation. Physical Exam Filed Vitals: 04/10/20 0120 04/10/20 0131 04/10/20 0201 04/10/20 0231 BP: 127/64 126/59 132/46 125/51 Pulse: Resp: Temp: TempSrc: SpO2: 100% 96% 98% 96% Weight: Height: Physical Exam Constitutional: She is oriented to person, place, and time. She appears well- developed and well-nourished. Morbidly obese HENT: Head: Normocephalic and atraumatic. Eyes: Pupils are equal, round, and reactive to light. EOM are normal. Neck: Normal range of motion. Neck supple. Cardiovascular: Normal rate and regular rhythm. Pulmonary/Chest: Effort normal and breath sounds normal. No respiratory distress. Abdominal: Soft. Bowel sounds are normal. She exhibits no mass. There is tenderness (Very mild to the left lower quadrant). There is no guarding. Musculoskeletal: Normal range of motion. She exhibits no tenderness. Neurological: She is alert and oriented to person, place, and time. Skin: Skin is warm and dry. Capillary refill takes less than 2 seconds. Nursing note and vitals reviewed. Diagnostic Studies / Procedures ELECTROCARDIOGRAMS: No results found for this visit on 04/09/20. LABORATORY STUDIES: Results for orders placed or performed during the hospital encounter of 04/09/20 URINALYSIS, AUTO, COMPLETE Result Value Ref Range COLOR (U) YELLOW TRANSPARENCY HAZY Specific Casa (U) >1.030 (H) 1.000 - 1.030 U PH 6.0 5.0 - 9.0 LEUKOCYTE ESTERASE NEGATIVE NEGATIVE NITRITES NEGATIVE NEGATIVE PROTEIN (U) NEGATIVE NEGATIVE URINE GLUCOSE NEGATIVE NEGATIVE U KETONES NEGATIVE NEGATIVE BILIRUBIN (U) NEGATIVE NEGATIVE BLOOD NEGATIVE NEGATIVE WBC/HPF 0-5 0 - 5 /HPF RBC/HPF 0-5 0 - 5 /HPF EPI/HPF MANY /HPF BACTERIA (URINE) MODERATE /HPF URINE BARRERA: MANY TEST URINE Result Value Ref Range Specific Casa (U) 1.030 PREG TEST NEGATIVE NEGATIVE IMAGING STUDIES No orders to display ED Course / Medical Decision Making I will evaluate the patient for urinary tract infection or intra-abdominal pathology. 02:48 Rechecked the patient- The patient is resting comfortably and feeling better. I discussed theresults of diagnostic studies, my clinical impression, and the plan for further treatment with the patient. The patient agrees with the plan and discharge at this time, all questions answered. The patient is medically stable for discharge at this time. She has been instructed to follow-up with her keno dealer for continuing symptoms and possible repeat ultrasound. I have given the patient instructions regarding their diagnosis, expectations, follow up, and return precautions. I explained to the patient that emergent conditions may arise and to return to the ERfor new,worsening, or any persistent conditions. I've explained the importance of following up withtheir Primary Care Physician- (or the referral physician listed below) as instructed. The patient verbalized understanding of the discharge information. I had a formal disposition interview with the patient/family to discuss the ED visit and disposition plan. Discharge Meds: Medication List START taking these medications acetaminophen-codeine 300-30 MG tablet Commonly known as: TYLENOL/CODEINE #3 Take 1-2 tablets by mouth every 4 (four) hours as needed for Pain. Indications: Acute Pain < 3 Day Supply Where to Get Your Medications These medications were sent to [facility] [place] [address] ?? acetaminophen-codeine 300-30 MG tablet I have advised the patient to follow up with Bryanna Chavez PA-C [address] [place] [address] Call today for follow up in 2 days or call the keno dealer in [place]. Clinical Impression Left lower quadrant abdominal pain (Primary) Disposition: Discharge Deya Goldsmith MD 04/10/20 0249 * Cori Alvarez RN - 04/10/2020 12:00 AM CDT To ED with c/o left lower abd pain. States that it radiates into her back and is 7/10 cramping/ stabbing pain. States she has a h/o ovarian cysts and this feel similar. documented in this encounter Plan of Treatment Not on file documented as of this encounter Procedures Procedure Name Priority Date/Time Associated Diagnosis Comments TEST URINE STAT 04/10/2020 12:20 AM CDT URINALYSIS, AUTO, COMPLETE STAT 04/10/2020 12:20 AM CDT documented in this encounter Results * TEST URINE (04/10/2020 12:20 AM CDT) SPECIFIC GRAVITY (U) 1.030 04/10/2020 12:27 AM CDT [facility] PREG TEST NEGATIVE NEGATIVE 04/10/2020 12:27 AM CDT [facility] URINE SPECIMEN OBTAINED BY CLEAN CATCH PROCEDURE / Unknown 04/10/2020 12:20 AM CDT us Deya Goldsmith MD URINE ORDERABLES Final Result [facility] [address] [place] [address], [place] [phone] * (ABNORMAL) URINALYSIS, AUTO, COMPLETE (04/10/2020 12:20 AM CDT) COLOR (U) YELLOW 04/10/2020 12:26 AM CDT [facility] TRANSPARENCY HAZY 04/10/2020 12:26 AM CDT [facility] SPECIFIC GRAVITY (U) >1.030(H) 1.000 - 1.030 04/10/2020 12:26 AM CDT [facility] U PH 6.0 5.0 - 9.0 04/10/2020 12:26 AM T [facility] LEUKOCYTES (U) NEGATIVE NEGATIVE 04/10/2020 12:26 AM CDT [facility] NITRITES NEGATIVE NEGATIVE 04/10/2020 12:26 AM CDT [facility] PROTEIN (U) NEGATIVE NEGATIVE 04/10/2020 12:26 AM CDT [facility] URINE GLUCOSE NEGATIVE NEGATIVE 04/10/2020 12:26 AM CDT [facility] KETONES MG/DL (U) NEGATIVE NEGATIVE 04/10/2020 12:26 AM CDT [facility] BILIRUBIN (U) NEGATIVE NEGATIVE 04/10/2020 12:26 AM CDT [facility] BLOOD (U) NEGATIVE NEGATIVE 04/10/2020 12:26 AM CDT [facility] WBC/HPF 0-5 0 - 5 /HPF 04/10/2020 12:26 AM CDT [facility] RBC/HPF 0-5 0 - 5 /HPF 04/10/2020 12:26 AM CDT [facility] EPI/HPF MANY /HPF 04/10/2020 12:26 AM CDT [facility] BACTERIA (U) MODERATE /HPF 04/10/2020 12:26 AM CDT [facility] URINE BARRERA MANY 04/10/2020 12:26 AM CDT [facility] Comment:MUCOUS URINE SPECIMEN OBTAINED BY CLEAN CATCH PROCEDURE / Unknown 04/10/2020 12:20 AM CDT us Deya Goldsmith MD URINE ORDERABLES Final Result [facility] [address] [place] [address], [place] [phone] documented in this encounter Visit Diagnoses Diagnosis Left lower quadrant abdominal pain- Primary documented in this encounter Administered Medications Inactive Administered Medications - up to 3 most recent administrations Medication Order MAR Action Action Date Dose Rate Site HYDROcodone-acetaminophen (NORCO) 5-325 MG tablet 1 tablet 1 tablet, Oral, Once, 1 dose, On Joeclyne 04/10/20 at 0115, Maximum dose of acetaminophen is 4000 mg from all sources in 24 hours. Given 04/10/2020 1:15 AM CDT 1 tablet ketorolac (TORADOL) injection 30 mg 30 mg, Intramuscular, Once, 1 dose, On Jocelyne 04/10/20 at 0115, For IV administration, give over 15 seconds. Given 04/10/2020 1:15 AM CDT 30 mg Left Deltoid documented in this encounter Active and Recently Administered Medications Times are shown in CDT. Scheduled Medication Order 04/08/2020 04/09/2020 04/10/2020 HYDROcodone-acetaminophen (NORCO) 5-325 MG tablet 1 tablet (COMPLETED) 1 tablet, Oral, Once, 1 dose, On Jocelyne 04/10/20 at 0115, Maximum dose of acetaminophen is 4000 mg from all sources in 24 hours. 0115 (Given - Provid er: Cori Alvarez RN) ketorolac (TORADOL) injection 30 mg (COMPLETED) 30 mg, Intramuscular, Once, 1 dose, On Jocelyne 04/10/20 at 0115, For IV administration, give over 15 seconds. 0115 (Given - Provid er: Cori Alvarez RN) documented in this encounter Care Teams School Bus Driver Relationship Specialty Start Date End Date Bryanna Chavez PA-C PCP - General NURSE PRACTITIONER 07/27/19 documented as of this encounter
--- OUTSIDE RECORDS SUMMARY | 2024-06-23 20:12 | XMS_ITS | Encounter Summary ---
Author Organization [facility] Address [address] [place] [address]. [place] [address] Care Team Providers Care International Tax Manager Name Role Phone Unavailable Primary Care Provider Unavailabl e Encounter Details Date Type Department Care Team (Latest Contact Info) Description 08/21/2015 Abstract [facility] Medical Group Social History Tobacco Use Types Packs/Day Years Used Date Smoking Tobacco: Never Assessed Comments Unknown Sex and Gender Information Value Date Recorded Sex Assigned at Not on file Legal Sex Female 8:11 PM CDT Gender Identity Not on file Sexual Orientation Not on file documented as of this encounter Plan of Treatment Not on file documented as of this encounter Visit Diagnoses Not on filedocumented in this encounter
--- OUTSIDE RECORDS SUMMARY | 2024-06-23 20:12 | XMS_ITS | Encounter Summary ---
Author Organization [facility] Address [facility] [place] [address] [place] [address] Care Team Providers Care Homicide Squad Lieutenant Name Role Phone Unavailable Primary Care Provider Unavailabl e Encounter Details Date Type Department Care Team (Late st Contact Info) Description 12/04/2015 Abstract [facility] [address] [place] [address] Jennifer Gould, PRE ASSEMBLY WIRER [address] [place] [address] Social History Tobacco Use Types Packs/Day Years [...]
--- OUTSIDE RECORDS SUMMARY | 2024-06-23 20:12 | XMS_ITS | Encounter Summary ---
Author Organization [facility] Address [address] [place] [address]. [place] [address] Care Team Providers Care Environmental Conservation Professor Name Role Phone Unavailable Primary Care Provider Unavailabl e Encounter Details Date Type Department Care Team (Latest Contact Info) Description 05/09/2018 Scan [facility] Medical Group , Orlin Brumfield MD Social History Tobacco Use Types Packs/Day Years [...]
--- OUTSIDE RECORDS SUMMARY | 2024-06-23 20:12 | XMS_ITS | Encounter Summary ---
Author Organization [facility] Address [facility]. [place], [place] [address] [place] [address] Care Team Providers Care Geothermal Hvac Technician Name Role Phone Unavailable Primary Care Provider Unavailabl e Encounter Details Date Type Department Care Team (Latest Contact Info) Description 01/08/2015 Abstract [facility] Social History Tobacco Use Types Packs/Day Years Used Date Smoking Tobacco: Never Assessed Comments Unknown Sex and Gender Information Value Date Recorded Sex Assigned at Not on file Legal Sex Female 8:11 PM CDT Gender Identity Not on file Sexual Orientation Not on file documented as of this encounter Progress Notes * Orlin Brumfield Md, MD - 01/08/2015 12:59 PM CDT Message Recorded as Task Date: 01/07/2015 03:41 PM, Created By: Natividad Soliz Task Name: Referral Assigned To: Yajaira Light Regarding Patient: Aislinn Michaud, Status: Active Comment: Natividad Soliz - 07 Jan 2015 3:41 PM TASK CREATED Caller: Self; Pt is needing a new ref for her to see the accredited pharmacy technician, can you put the order in please? Yajaira Light - 08 Jan 2015 9:40 AM TASK REASSIGNED: [facility] Elmira Delgado - 08 Jan 2015 10:06 AM TASK REPLIED TO: Previously Assigned To Yajaira Light Done. Thank you Signatures Electronically signed by : Yajaira Light, ; Jan 08 2015 12:59PM OIL PROCESS STILLMAN (Author) documented in this encounter Plan of Treatment Not on file documented as of this encounter Visit Diagnoses Not on filedocumented in this encounter
--- OUTSIDE RECORDS SUMMARY | 2024-06-23 20:12 | XMS_ITS | Encounter Summary ---
Author Organization [facility] Address [facility]. [place], [place] [address] [place] [address] Care Team Providers Care Mosaic Layer Name Role Phone Unavailable Primary Care Provider Unavailabl e Encounter Details Date Type Department Care Team (Latest Contact Info) Description 02/28/2015 Abstract [facility] Medical Group Social History Tobacco Use Types Packs/Day Years Used Date Smoking Tobacco: Never Assessed Comments Unknown Sex and Gender Information Value Date Recorded Sex Assigned at Not on file Legal Sex Female 8:11 PM CDT Gender Identity Not on file Sexual Orientation Not on file documented as of this encounter Progress Notes * Generic Conversion MD Erin - 02/28/2015 11:54 AM CDT Message Recorded as Task Date: 02/27/2015 02:56 PM, Created By: Elmira Delgado Task Name: Informational [facility] Regarding Patient: Aislinn Michaud, Status: In Progress Comment: Elmira Delgado - 27 Feb 2015 2:56 PM TASK CREATED Will you please call [facility] and check on the status of Aislinn's CPAP and equipment. Order was placed a week ago. Thank you. Yajaira Light - 28 Feb 2015 10:02 AM TASK EDITED 02/28/15 spoke with [facility] [phone]. spoke to a young man. he states he wasn't sure if they received the fax or not? he will have Jen from there call me when she comes in. She takes careof this. Yajaira Light - 28 Feb 2015 11:49 AM TASK EDITED spoke with [facility]. They received the paper work and will process this. Yajaira Light - 28 Feb 2015 11:54 AM TASK EDITED pt aware, they will get ahold of her today Signatures Electronically signed by : Yajaira Light, ; Feb 28 2015 11:54AM REGIONAL ECONOMIC LIAISON (Author) documented in this encounter Plan of Treatment Not on file documented as of this encounter Visit Diagnoses Not on filedocumented in this encounter
--- OUTSIDE RECORDS SUMMARY | 2024-06-23 20:12 | XMS_ITS | Encounter Summary ---
Author Organization [facility] Address [address] [place] [address]. [place] [address] Care Team Providers Care Bank Reconciliator Name Role Phone Unavailable Primary Care Provider Unavailabl e Encounter Details Date Type Department Care Team (Latest Contact Info) Description 05/20/2015 Abstract [facility] Medical Group Social History Tobacco Use Types [...]
--- OUTSIDE RECORDS SUMMARY | 2024-06-23 20:12 | XMS_ITS | Encounter Summary ---
Author Organization [facility] Address [facility]. [place], [place] [address] [place] [address] Care Team Providers Care Control System Computer Scientist Name Role Phone Unavailable Primary Care Provider Unavailabl e Encounter Details Date Type Department Care Team (Late st Contact Info) Description 03/09/2017 Abstract [facility] [address] [place], [place] [id number] Bryanna Chavez PA-C [address] [place] [address] [address] [place], [place] [id number] Social History Tobacco Use Types Packs/Day Years Used Date Smoking Tobacco: Never Assessed Comments Unknown Sex and Gender Information Value Date Recorded Sex Assigned at Not on file Legal Sex Female 8:11 PM CDT Gender Identity Not on file Sexual Orientation Not on file documented as of this encounter Plan of Treatment Not on file documented as of this encounter Visit Diagnoses Diagnosis Pain in left ankle Pain in joint, ankle and foot documented in this encounter
--- OUTSIDE RECORDS SUMMARY | 2024-06-23 20:12 | XMS_ITS | Encounter Summary ---
Author Organization [facility] Address [facility]. [place], [place] [address] [place] [address] Care Team Providers Care Fitness Supervisor Name Role Phone Unavailable Primary Care Provider Unavailabl e Encounter Details Date Type Department Care Team (Late st Contact Info) Description 12/13/2014 Abstract [facility] Medical Group Family & Internal Medicine [facility] [address] [place] [address] Yefri Boyce MD Social History Tobacco Use Types Packs/Day Years Used Date Smoking Tobacco: Never Assessed Comments Unknown Sex and Gender Information Value Date Recorded Sex Assigned at Not on file Legal Sex Female 8:11 PM CDT Gender Identity Not on file Sexual Orientation Not on file documented as of this encounter Last Filed Vital Signs Vital Sign Reading Time Taken Comments Blood Pressure 114/60 12/13/2014 2:07 PM CDT Pulse 74 12/13/2014 2:07 PM CDT Temperature - - Respiratory Rate - - Oxygen Saturation - - Inhaled Oxygen Concentration - - Weight 112 kg (247 lb) 12/13/2014 2:07 PM CDT Height 157.5 cm (5' 2 ) 12/13/2014 2:07 PM CDT Body Mass Index 45.18 12/13/2014 2:07 PM CDT documented in this encounter Progress Notes * Yefri Boyce MD - 12/13/2014 2:00 PM CDT Reason For Visit Acute Visit Chief Complaint pt c/o anxiety for 3-4 days History of Present Illness A 29-year-old lady, very pleasant, very extremely anxious today. Apparently, many things going on to her family. She is a single mother and has several kids to raise. She is still working for that and her father recently found to have some problems and she does not know exactly what it is but she is extremely apprehensive of what it may be; he is a heavy smoker. She was crying and very anxious. She said that she is not able to work too well because she is very anxious. She is not taking any medicines. She is trying to lose some weight and yet she kept gaining actually, she said but our numbers said that she dropped from 249 to 247. So, I encouraged her to try to keep working on that. I gaveher some tips regarding how to cut down calories. The patient is being seen for an initial evaluation of anxiety. Symptoms: anxiety, difficulty concentrating, excessive worry, fatigue, irritability, muscle tension and panic attacks, but no globus, no nervousness, no shaky hands, no sweaty palms and no sleep disruption. Associated symptoms: headaches, heart palpitations, racing heart and muscle pain, but no chest pain, no choking sensation, no diaphoresis, no dizziness, no fainting, no flushing, no gastrointestinal complaints, no hyperventilation, no muscle spasms, no paresthesia, no shortness of breath and no tremors. Review of Systems See HPI for pertinent positives. Constitutional: no fever, no chills and no headache. ENT: no earache, no sore throat, no hearing loss and no nasal discharge. Cardiovascular: no chest pain, no intermittent leg claudication, no palpitations and no lower extremity edema. Respiratory: no shortness of breath, no cough, no wheezing, no shortness of breath during exertion and no PND. Gastrointestinal: no abdominal pain, no constipation, no heartburn, no vomiting, no diarrhea and nomelena. Genitourinary: no dysuria and no incontinence. Integumentary: no skin lesions and no skin rash. Musculoskeletal: no arthralgias, no joint swelling, no limb pain, no joint pain and no joint stiffness. Neurological: no confusion, no dizziness, no limb weakness and no difficulty walking. Psychiatric: no anxiety, no ideation and no depression. Active Problems 1. Fatigue (780.79) (R53.83) 2. Obesity (278.00) (E66.9) 3. VICKIE (obstructive sleep apnea) (327.23) (G47.33) 4. Screening for deficiency anemia (V78.1) (Z13.0) 5. Screening for diabetes mellitus (V77.1) (Z13.1) 6. Screening for hyperlipidemia (V77.91) (Z13.220) 7. Screening for thyroid disorder (V77.0) (Z13.29) 8. Tooth infection (522.4) (K04.7) Surgical History 1. History of Hip Surgery 2. 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 Managed by Cleft Palate Team with [facility]. Dr. Whelan ENT [...] Never a smoker ?? No drug use Allergies 1. Sulfa Drugs Vitals Recorded: 13Dec2014 02:07PM Heart Rate 74 Systolic 114 Diastolic 60 O2 Saturation 98 Height 5 ft 2 in Weight 247 lb BMI Calculated 45.18 BSA Calculated 2.09 Physical Exam Constitutional General appearance: No acute distress, well appearing and well nourished. She is alert, pleasant but very anxious and teary. Eyes Conjunctiva and lids: No swelling, erythema or discharge. Ears, Nose, Mouth, and Throat External inspection of ears and nose: Normal. Oropharynx: Normal with no erythema, edema, exudate or lesions. Pulmonary Respiratory effort: No increased work of breathing or signs of respiratory distress. Auscultation of lungs: Clear to auscultation. Cardiovascular Auscultation of heart: Normal rate and rhythm, normal S1 and S2, without murmurs. Examination of extremities for edema and/or varicosities: Normal. Abdomen Abdomen: Abnormal. Soft, nontender and prominent. Lymphatic Palpation of lymph nodes in neck: No lymphadenopathy. Musculoskeletal Gait and station: Normal. Inspection/palpation of joints, bones, and muscles: Normal. Skin Skin and subcutaneous tissue: Normal without rashes or lesions. Neurologic Cranial nerves: Cranial nerves 2-12 intact. Reflexes: 2+ and symmetric. Psychiatric Orientation to person, place, and time: Normal. Mood and affect: Normal. Assessment 1. Anxiety (300.00) (F41.9) 2. Obesity (278.00) (E66.9) Plan Anxiety 1. Citalopram Hydrobromide 10 MG Oral Tablet; TAKE 1 TABLET DAILY Rx By: Yefri Boyce; Dispense: 30 Days ; #:30 Tablet; Refill: 2; For: Anxiety; CORETTA = N; Verified Transmission to [facility]; Last Updated By: Abisai Whitfield; 12/13/2014 2:40:24 PM Amoxicillin 500 MG Oral Capsule; TAKE 1 CAPSULE 3 TIMES DAILY UNTIL GONE; Therapy: 13Dec2014 to (Evaluate:20Dec2014); Last Rx:13Dec2014; Status: ACTIVE Ordered Rx By: Nicole Tipton; Dispense: 7 Days ; #:21 Capsule; Refill: 0; For: Tooth infection; CORETTA = N; Faxed To: [facility]; Last Updated By: Brandee Basurto; 12/13/2014 2:45:24 PM Discussion/Summary After a long discussion, we agreed to try some citalopram that in the long run will help her to settle down hopefully and relax her a little bit. So, I am going to do that. I encouraged her to see the doctor in followup within a month or before if needed. At the same time, also I gave her some counseling regarding stress and how to view things in life, does not need to get so tight and nervous about things that she has no control but she can certainly control her body better. We will see how she does and we will see her in a month either with me or with Elmira, the nurse practitioner. Signatures Electronically signed by : Yefri Boyce M.D.; Dec 17 2014 4:12PM AUTOMOTIVE QUALITY MANAGER (Author) documented in this encounter Plan of Treatment Not on file documented as of this encounter Visit Diagnoses Not on filedocumented in this encounter
--- OUTSIDE RECORDS SUMMARY | 2024-06-23 20:12 | XMS_ITS | Encounter Summary ---
Author Organization [facility] Address [facility]. [place], [place] [address] [place] [address] Care Team Providers Care Electrophysiologist Name Role Phone Unavailable Primary Care Provider Unavailabl e Encounter Details Date Type Department Care Team (Late st Contact Info) Description 03/04/2017 Abstract [facility] Diagnostic Imaging [address] [place], [place] [id number] Ray Kennedy MD [facility] [place], [place] [id number] Social History Tobacco Use Types Packs/Day Years Used Date Smoking Tobacco: Never Assessed Comments Unknown Sex and Gender Information Value Date Recorded Sex Assigned at Not on file Legal Sex Female 8:11 PM CDT Gender Identity Not on file Sexual Orientation Not on file documented as of this encounter Plan of Treatment Not on file documented as of this encounter Visit Diagnoses Diagnosis Other intervertebral disc degeneration, lumbar region documented in this encounter
--- OUTSIDE RECORDS SUMMARY | 2024-06-23 20:12 | XMS_ITS | Encounter Summary ---
Author Organization [facility] Address [address] [place] [address]. [place] [address] Care Team Providers Care Contract Manager Name Role Phone Unavailable Primary Care Provider Unavailabl e Encounter Details Date Type Department Care Team (Latest Contact Info) Description 04/30/2015 Abstract [facility] Social History Tobacco Use Types [...]
--- OUTSIDE RECORDS SUMMARY | 2024-06-23 20:12 | XMS_ITS | Encounter Summary ---
Author Organization [facility] Address [facility] [place], [place] [address] [place] [address] Care Team Providers Care Rooming House Operator Name Role Phone Unavailable Primary Care Provider Unavailabl e Encounter Details Date Type Department Care Team (Latest Contact Info) Description 10/24/2014 Abstract [facility] Medical [facility] Social History Tobacco Use Types Packs/Day Years Used Date Smoking Tobacco: Never Assessed Comments Unknown Sex and Gender Information Value Date Recorded Sex Assigned at Not on file Legal Sex Female 8:11 PM CDT Gender Identity Not on file Sexual Orientation Not on file documented as of this encounter Progress Notes * Generic Conversion MD Erin - 10/24/2014 9:36 AM CDT Message Recorded as Task Date: 10/22/2014 02:26 PM, Created By: Shannan Mireles Task Name: Miscellaneous Assigned To: Yajaira Light Regarding Patient: Aislinn Michaud, Status: Active Comment: Shannan Mireles - 22 Oct 2014 2:26 PM TASK CREATED Caller: Self; Pt called stating that she has set some goals with Elmira to see a dietitian and also to lose weight. She is not a big pill taker, but after having several discussions with her mother, she is wondering if there is a weight loss pill that might help her while she is chnaging her habits to keep her from having cravings or caving into them. Please advise. Yajaira Light - 23 Oct 2014 1:58 PM TASK REASSIGNED: [facility] El[facility] Delgado - 23 Oct 2014 3:02 PM TASK REPLIED TO: Previously Assigned To Yajaira Light Please let Aislinn know that medication may be an option after she has made a real effort to change her lifestyle. We need to give patient's at least 6 months to implement changes and if we don't see a 5% weight loss after that time then we can discuss the risks and benefits of medication. She needs to keep appointment with draughtsman and make the recommended changes then we can discuss. The healthiest way for our body to lose weight is through changing our diet. Thanks. Yajaira Light - 24 Oct 2014 9:34 AM TASK EDITED pt told/ she will try the diet Signatures Electronically signed by : Yajaira Light, ; Oct 24 2014 9:36AM CELERY PACKER (Author) documented in this encounter Plan of Treatment Not on file documented as of this encounter Visit Diagnoses Not on filedocumented in this encounter
--- OUTSIDE RECORDS SUMMARY | 2024-06-23 20:12 | XMS_ITS | Encounter Summary ---
Author Organization [facility] Address [facility]. [place], [place] [address] [place] [address] Care Team Providers Care Product Designer Name Role Phone Unavailable Primary Care Provider Unavailabl e Encounter Details Date Type Department Care Team (Latest Contact Info) Description 02/17/2015 Abstract [facility] Group , Orlin Brumfield MD Social History Tobacco Use Types Packs/Day Years Used Date Smoking Tobacco: Never Assessed Comments Unknown Sex and Gender Information Value Date Recorded Sex Assigned at Not on file Legal Sex Female 8:11 PM CDT Gender Identity Not on file Sexual Orientation Not on file documented as of this encounter Procedure Notes * NICK Gerardo - 02/14/2015 12:00 AM CDT [place] [address] Patient: AISLINN MEYER Med Rec#: [id number] Birthdate: 1985 Admit/Svce Date: 02/10/2015 Disch Date: Attending Md: HILDA DELGADO ANP CHART DOCUMENT SLEEP STUDY REPORT CPAP Titration Study 1. 2. Patient 3. Date: [birth year] 4. Sex: Female 5. Referring Physician: Hilda Delgado NP. Primary Care Physician: Obi Eaton MD 6. Date of Procedure: 02/10/2015 7. Reason for Study: Obstructive sleep apnea. 8. Recording Parameters: The following parameters were monitored. Two leads for ocular movements. Two leads for chin EMG. Two leads for EEG. Two leads for leg movements. One lead for snoring. One lead for airflow. Two leads for chest and abdominal wall movements. One lead for EKG. One lead for oxygen saturation. In addition, titration of continuous airway pressure CPAP was performed during the study. 9. Sleep Study Report 1. Sleep Quality: Total sleep time 418.5 minutes. Total recording time 460.5 minutes. Sleep quality is good. Sleep efficiency index 90.9% normal. Sleep latency 5.5 minutes decreased. REM latency 164 minutes increased. Stage N1 6.7% decreased. Stage N2 63% increased. Stage N3 7.5% decreased. Stage REM 22.8% normal. CPAP titration was performed from the beginning of the study. Different pressures were used at 4, 6, 8, 10, 11 and 13 centimeters of water due to apneas as well as snoring. Subjectively the patient reported sleeping better than usual. 2. Respiratory: There were obstructive apneas and hypopneas. However once CPAP was used, those apneas and hypopneas were eliminated. Patient seemed to have done best with a pressure of 13 centimeters of water. 3. Oxygen: Mean oxygen saturation was 97.5%. The milana oxygen saturation was 87%. 4. Limb Movements: The PLM index was 12.3 normal. The PLM arousal index was 4.4 normal. 5. Cardiac Events: No bradycardia, asystole, narrow complex tachycardia, wide complex tachycardia, atrial fibrillation, deceleration or acceleration were noted. 6. Others: No snoring index was noted. IMPRESSION: There is a CPAP titration study during which patient received different pressures of continuous positive airway pressure. Patient seemed to have done best with a pressure of 13 centimeters of water during which the apnea-hypopnea index was 0 per hour. Specific Discussion and Recommendations: 1. Nasal CPAP at a pressure of 13 centimeters. During this titration the following equipment was used: Respironic Comfort Gel small size mask with heated humidifier. 2. Close clinical followup is needed to insure treatment compliance and omission of daytime symptoms. 3. Operation of a motor vehicle or dangerous machinery should be restricted until daytime symptoms have been resolved. General Recommendations: 1. Weight loss to an ideal body weight is recommended. 2. Avoid alcohol, sedatives and hypnotics. 3. Regulate bedtime and arise time. 4. Obtain adequate total sleep time of 7-8 hours. 5. Avoid caffeinated beverages 6 hours prior to bedtime. 6. Avoid exercise and heavy meals just prior to bedtime. 7. Encourage follow-up appointment to discuss results and if there are any concerns. Bigg Romreo M.D. Board Certified in Sleep Medicine Electronically Signed by Bigg Romero MD 02/24/2015 10:40 A /laura 02/14/2015 02/17/2015 10:20 A Job No: [id number] Doc No: [id number] cc: Other Copy Hilda Delgado NP documented in this encounter Plan of Treatment Not on file documented as of this encounter Visit Diagnoses Not on filedocumented in this encounter
--- OUTSIDE RECORDS SUMMARY | 2024-06-23 20:12 | XMS_ITS | Encounter Summary ---
Author Organization [facility] Address [address] [place] [address]. [place] [address] Care Team Providers Care Medical Services Coordinator Name Role Phone Unavailable Primary Care Provider Unavailabl e Encounter Details Date Type Department Care Team (Latest Contact Info) Description 02/21/2015 Abstract [facility] Medical Group Social History Tobacco [...]
--- OUTSIDE RECORDS SUMMARY | 2024-06-23 20:12 | XMS_ITS | Encounter Summary ---
Author Organization [facility] Address [address] [place] [address]. [place] [address] Care Team Providers Care Acoustical Carpenter Name Role Phone Unavailable Primary Care Provider Unavailabl e Encounter Details Date Type Department Care Team (Latest Contact Info) Description 05/05/[address] [facility] Medical Group Social History Tobacco Use Types [...]
--- OUTSIDE RECORDS SUMMARY | 2024-06-23 20:12 | XMS_ITS | Encounter Summary ---
Author Organization [facility] Address [address] [place] [address]. [place], [place] [address] [place] [address] Care Team Providers Care Warehouse Stocker Name Role Phone Bryanna Chavez PA-C Primary Care Provider +- [phone] Reason for Referral * Imaging (Routine) - Closed Specialty Diagnoses / Procedures Referred By Contac t Referred To Contact RADIOLOGY Diagnoses Abdominal pain, left lower quadrant Abdominal pain Procedures US PELVIC NON OB COMP TA+TV Bryanna Chavez PA-C Phone: tel: fax: Referral ID Status Reason Start Date Expiration Date Visits Re quested Visits Authorized [id number] Closed 07/27/2019 08/27/2020 1 1 ER EQUIPMENT Reason for Visit * Imaging (Routine) - Closed Specialty Diagnoses / Procedures Referred By Contac t Referred To Contact RADIOLOGY Diagnoses Abdominal pain, left lower quadrant Abdominal pain Procedures US PELVIC NON OB COMP TA+TV Bryanna Chavez PA-C Phone: tel: fax: Referral ID Status Reason Start Date Expiration Date Visits Re quested Visits Authorized [id number] Closed 07/27/2019 08/27/2020 1 1 Encounter Details Date Type Department Care Team (Latest Contact Info) Description 07/27/2019 1:19 PM TESTER EQUIPMENT - 07/27/2019 11:59 PM TESTER EQUIPMENT Hospital Encounter [facility] [address] [place] [address] Bryanna Chavez PA-C [address] [place] [address] Discharge Disposition: Home or Self Care (Routine [...] Procedure Name Priority Date/Time Associated Diagnosis Comments US PELVIC NON OB COMP TA+TV Routine 07/27/2019 2:33 PM TESTER EQUIPMENT Abdominal pain, left lower quadrant Abdominal pain documented in this encounter Results * US PELVIC NON OB COMP TA+TV (07/27/2019 2:33 PM TESTER EQUIPMENT) Anatomical Region Laterality Modality Pelvis Ultrasound 07/27/2019 3:45 PM TESTER EQUIPMENT Impressions 07/27/2019 3:50 PM TESTER EQUIPMENT =====IMPRESSION:===== ?? 1. ??Limited examination of the uterus. No definite endometrial abnormality seen although this is incompletely visualized. 2. ??Small hypoechoic exophytic area in the region of the fundus of the uterus. This alternatively may be a periuterine finding. I would favor exophytic fibroid. 3. ??Analogous finding adjacent to or possibly within the left ovary. Continued follow-up of these findings could be considered. Small size makes definitive characterization difficult. Interpreted By: Kain Burt, 07/27/2019 3:45 PM Narrative 07/27/2019 3:50 PM TESTER EQUIPMENT EXAMINATION: Non-OB pelvic ultrasound EXAM DATE/TIME: 07/27/2019 1:24 PM REASON FOR EXAM: ??Abdominal pain, left lower quadrant ? COMPARISON: None TECHNIQUE: Transabdominal and transvaginal ultrasound evaluation of the pelvic contents was performed for analysis of grayscale and color Doppler imaging characteristics. FINDINGS: The uterus measures 7.46 x 3.02 x 4.53 cm. The endometrium is not well visualized. This may measure 4 mm in sagittal thickness. No definite endometrial abnormality is seen, although this is not well visualized on transvaginal study nor is seen in its entirety. Exophytic hypoechoic area from the fundal portion of the uterus is seen measuring 1.2 x 0.97 x 0.98 cm. The right ovary measures 2.66 x 2.03 x 1.72 cm. Internal simple cysts is seen. Normal color flow enhancement is seen. The left ovary measures 3.56 x 1.9 x 2.95 cm. Simple cyst in the left ovary measures 1.49 cm in diameter. Additional smaller cysts are seen. Normal color flow enhancement is seen. Left adnexal hypoechoic area measures 0.96 x 1.01 x 0.83 cm. I'm uncertain whether this is exophytic from the ovary or possibly separate from the ovary. Procedure Note Kain Burt MD - 07/27/2019 EXAMINATION: Non-OB pelvic ultrasound EXAM DATE/TIME: 07/27/2019 1:24 PM REASON FOR EXAM: Abdominal pain, left lower quadrant COMPARISON: None TECHNIQUE: Transabdominal and transvaginal ultrasound evaluation of the pelvic contents was performed for analysis of grayscale and colorDoppler imaging characteristics. FINDINGS: The uterus measures 7.46 x 3.02 x 4.53 cm. The endometrium is not well visualized. This may measure 4 mm in sagittal thickness. No definite endometrial abnormality is seen, although this is not well visualized on transvaginal study nor is seen in its entirety. Exophytic hypoechoicarea from the fundal portion of the uterus is seen measuring 1.2 x 0.97 x0.98 cm. The right ovary measures 2.66 x 2.03 x 1.72 cm. Internal simple cysts is seen. Normal color flow enhancement is seen. The left ovary measures 3.56 x 1.9 x 2.95 cm. Simple cyst in the leftovary measures 1.49 cm in diameter. Additional smaller cysts are seen. Normal color flow enhancement is seen. Left adnexal hypoechoic area measures 0.96 x 1.01 x 0.83 cm. I'muncertain whether this is exophytic from the ovary or possibly separate from the ovary. =====IMPRESSION:===== 1. Limited examination of the uterus. No definite endometrialabnormality seen although this is incompletely visualized. 2. Small hypoechoic exophytic area in the region of the fundus of the uterus. This alternatively may be a periuterine finding. I would favor exophytic fibroid. 3. Analogous finding adjacent to or possibly within the left ovary. Continued follow-up of these findings could be considered. Small sizemakes definitive characterization difficult. Interpreted By: Kain Burt, 07/27/2019 3:45 PM us Bryanna Chavez PA-C ULTRASOUND Final Resu lt documented in this encounter Visit Diagnoses Diagnosis Abdominal pain, left lower quadrant Abdominal pain Abdominal pain, unspecified site documented in this encounter Care Teams Warehouse Stocker Relationship Specialty Start Date End Date Bryanna Chavez PA-C PCP - General NURSE PRACTITIONER 07/27/19 documented as of this encounter
--- OUTSIDE RECORDS SUMMARY | 2024-06-23 20:12 | XMS_ITS | Encounter Summary ---
Author Organization [facility] Address [address] [place] [address]. [place] [address] Care Team Providers Care Company Accountant Name Role Phone Unavailable Primary Care Provider Unavailabl e Encounter Details Date Type Department Care Team (Latest Contact Info) Description 02/10/2015 Abstract [facility] Medical Group Social History Tobacco [...]
--- OUTSIDE RECORDS SUMMARY | 2024-06-23 20:12 | XMS_ITS | Encounter Summary ---
Author Organization [facility] Address [facility]. [place], [place] [address] [place] [address] Care Team Providers Care Tree Cutter Name Role Phone Unavailable Primary Care Provider Unavailabl e Encounter Details Date Type Department Care Team (Latest Contact Info) Description 10/25/2014 Abstract [facility] Medical Group Social History Tobacco Use Types Packs/Day Years Used Date Smoking Tobacco: Never Assessed Comments Unknown Sex and Gender Information Value Date Recorded Sex Assigned at Not on file Legal Sex Female 8:11 PM CDT Gender Identity Not on file Sexual Orientation Not on file documented as of this encounter Progress Notes * Generic Conversion MD Erin - 10/25/2014 1:47 PM CDT Message Recorded as Task Date: 10/15/2014 10:06 AM, Created By: Natividad Soliz Task Name: Referral Assigned To: [facility] Nurse Team Regarding Patient: Aislinn Michaud, Status: In Progress Comment: Natividad Soliz - 15 Oct 2014 10:06 AM TASK CREATED Pt states that she is to have a C Pap titration? I don't see an order in her chart, please clarify & order if it is needed. Yajaira Light - 15 Oct 2014 10:29 AM TASK REASSIGNED: Previously Assigned To [facility] Nurse Team Elmira Delgado - 15 Oct 2014 10:33 AM TASK REPLIED TO: Previously Assigned To Yajaira Light Sleep study orders stated patient needs to schedule another night for cpap titration. Do I need to put in another referral? Can't patient call sleep lab and schedule cpap titration? Does it have to go back through financial auth? Should be covered under original sleep study. Yajaira Light - 16 Oct 2014 11:47 AM TASK EDITED per dalia- needs to have an order in so she can get this approved. AddydominguezYajaira - 16 Oct 2014 11:50 AM TASK EDITED order placed in computer for cpap and dalia will call for approval. Elmira Connor - 16 Oct 2014 11:58 AM TASK REPLIED TO: Previously Assigned To Elmira Delgado Thank you! Yajaira Light - 17 Oct 2014 8:48 AM TASK EDITED 10/17/14 lmtcb 8:48 tell pt that an order was placed for cpap and dalia will get this approved lst. Deya Jackson - 17 Oct 2014 9:07 AM TASK EDITED pt returned your call. she wants to know if she has to wait on Dalia before she can schedule the sleep study? she also wants to know if you rec'd something from Natividad, the dietitian. she states Natividad was supposed to be faxing something to us so she could continue to see her monthly. Deya Jackson - 17 Oct 2014 9:07 AM TASK EDITED Nelida Aguilar - 18 Oct 2014 3:18 PM TASK EDITED Dalia in referral has to verify insurance coverage before test is scheduled. we have not received any info from commercial energy auditor. Nelida Aguilar - 18 Oct 2014 3:18 PM TASK EDITED lvm for pt to return call. Nelida Aguilar - 18 Oct 2014 3:18 PM TASK IN PROGRESS Yajaira Light 21 Oct 2014 3:45 PM TASK EDITED 10/21/14 dalia states she is about 2 wks behind. Yajaira Light 21 Oct 2014 3:46 PM TASK EDITED 10/21/14 lmtcb 3:46 Yajaira Light 23 Oct 2014 2:00 PM TASK EDITED 10/23/14 dalia is out of office today Yajaira Light 25 Oct 2014 8:49 AM TASK EDITED 10/25/14 trying to get ahold of daliaYajaira Colvin 25 Oct 2014 1:37 PM TASK EDITED 10/25/14 dalia is cking into this today Yajaira Light 25 Oct 2014 2:54 PM TASK EDITED per note from yung herring was faxed over and the dept will contact her to set up the cpap titration. Yaajira Light - 25 Oct 2014 2:56 PM TASK EDITED pt told Signatures Electronically signed by : Yajaira Light, ; Oct 25 2014 2:56PM OUTPATIENT SERVICES DIRECTOR (Author) documented in this encounter Plan of Treatment Not on file documented as of this encounter Visit Diagnoses Not on filedocumented in this encounter
--- OUTSIDE RECORDS SUMMARY | 2024-06-23 20:12 | XMS_ITS | Encounter Summary ---
Author Organization [facility] Address [facility] [place], [place] [address] [place] [address] Care Team Providers Care Sitecore Developer Name Role Phone Unavailable Primary Care Provider Unavailabl e Encounter Details Date Type Department Care Team (Late st Contact Info) Description 02/10/2015 Abstract [facility] Sleep Lab [address] [place] [address] Elmira Delgado APNP [address] [phone] Social History Tobacco Use Types Packs/Day Years Used Date Smoking Tobacco: Never Assessed Comments Unknown Sex and Gender Information Value Date Recorded Sex Assigned at Not on file Legal Sex Female 8:11 PM CDT Gender Identity Not on file Sexual Orientation Not on file documented as of this encounter Plan of Treatment Not on file documented as of this encounter Visit Diagnoses Diagnosis Obstructive sleep apnea Obstructive sleep apnea (adult) (pediatric) documented in this encounter
--- OUTSIDE RECORDS SUMMARY | 2024-06-23 20:12 | XMS_ITS | Encounter Summary ---
Author Organization [facility] Address [address] [place] [address]. [place] [address] Care Team Providers Care Drivers License Examiner Name Role Phone Unavailable Primary Care Provider Unavailabl e Encounter Details Date Type Department Care Team (Latest Contact Info) Description 01/10/2015 Abstract [facility] Medical [facility] Social History Tobacco Use Types [...]
--- OUTSIDE RECORDS SUMMARY | 2024-06-23 20:12 | XMS_ITS | Clinical Summary ---
Author Organization [facility] Address [address] [place] [address]. [place], [place] [address] [place] [address] Care Team Providers Care Strategic Accounts Manager Name Role Phone Bryanna Chavez PA-C Primary Care Provider [phone] Allergies Active Allergy Reactions Criticality Noted Date Comments Sulfa Antibiotics Itching,Swelling 09/03/2014 Medications No known medications Family History Medical History Relation Comments Cancer Father Hyperlipidemia Mother Hypertension Mother Relation Status Comments Father Mother Social History Tobacco Use Types Packs/Day Years Used Date Smoking Tobacco: Never Smokeless Tobacco: Never Alcohol Use Standard Drinks/Week Comments Yes 0 (1 standard drink = 0.6 oz pur e alcohol) rarely Comments No Sex and Gender Information Value Date Recorded Sex Assigned at Not on file Legal Sex Female 8:11 PM CDT Gender Identity Not on file Sexual Orientation Not on file Last Filed Vital Signs Vital Sign Reading [...] Mass Index 47.83 04/09/2020 11:56 PM CDT Plan of Treatment Health Maintenance Due Date Last Done Comments Cervical Cancer Screening Pa p Smear (Age 30 to 64) Every 3 Years 1984 Annual Physical 1987 Hepatitis C 2002 DTaP, Tdap and Td Vaccines ( 1 - Tdap) 2003 Hepatitis B Vaccines (1 of 3 - 19+ 3-dose series) 2003 Cervical Cancer Screening Sam layton with HPV Testing (Age 30 to 64) Every 5 Years 2014 Cervical Cancer Screening with HPV 2014 COVID-19 Vaccine ( - 2023-2 5 season) 2024 Mammogram Screening 2024 Influenza Adult (#1) 2024 04/03/2017 HPV Vaccines Aged Out No longer eligi ble based on patient's age to complete this topic Meningococcal Vaccine Aged Out No kady baltazar eligible based on patient's age to complete this topic Pneumococcal Vaccine: Pediat rics (0 to 5 Years) and At-Risk Patients (6 to 64 Years) Aged Out No longer eligi ble based on patient's age to complete this topic RSV Immunizations Under 20 Months Aged Out No longer eligible based on patient's age to complete this topic Insurance * Guarantor: Aislinn RUTH Account Type Relation to Patient Date of Phone Billing Address Personal/Family Self 1985 [phone] Care Teams Strategic Accounts Manager Relationship Specialty Start Date End Date Bryanna Chavez PA-C PCP - General NURSE PRACTITIONER 07/27/19
--- OUTSIDE RECORDS SUMMARY | 2024-06-23 20:12 | XMS_ITS | Encounter Summary ---
Author Organization [facility] Address [facility]. [place], [place] [address] [place] [address] Care Team Providers Care Paid Search Specialist Name Role Phone Unavailable Primary Care Provider Unavailabl e Encounter Details Date Type Department Care Team (Late st Contact Info) Description 09/11/2015 Abstract [facility] [address] [place], [place] [phone] Bryanna Chavez PA-C [address] [place], [place] [address] [place], [place] [phone] Social History Tobacco Use Types Packs/Day Years Used Date Smoking Tobacco: Never Assessed Comments Unknown Sex and Gender Information Value Date Recorded Sex Assigned at Not on file Legal Sex Female 8:11 PM CDT Gender Identity Not on file Sexual Orientation Not on file documented as of this encounter Plan of Treatment Not on file documented as of this encounter Visit Diagnoses Diagnosis Obesity Obesity, unspecified documented in this encounter
--- OUTSIDE RECORDS SUMMARY | 2024-06-23 20:13 | XMS_ITS | Encounter Summary ---
Author Organization [facility] Address [address] [place] [address]. [place] [address] Care Team Providers Care Technical Document Writer Name Role Phone Unavailable Primary Care Provider Unavailabl e Encounter Details Date Type Department Care Team (Latest Contact Info) Description 09/06/2014 Abstract [facility] Medical Group Social History Tobacco [...]
--- OUTSIDE RECORDS SUMMARY | 2024-06-23 20:13 | XMS_ITS | Encounter Summary ---
Author Organization [facility] Address On license of [facility]. [place], [place] [address] [place] [address] Care Team Providers Care Veneer Drier Tailer Name Role Phone Unavailable Primary Care Provider Unavailabl e Encounter Details Date Type Department Care Team (Late st Contact Info) Description 10/15/2010 Abstract [facility] Diagnostic Imaging [address] [place], [place] [phone] Ran Gomez MD Social History Tobacco Use Types Packs/Day [...] as of this encounter Visit Diagnoses Diagnosis Chest pain Chest pain, unspecified documented in this encounter
--- OUTSIDE RECORDS SUMMARY | 2024-06-23 20:13 | XMS_ITS | Encounter Summary ---
Author Organization [facility] Address [facility]. [place], [place] [address] [place] [address] Care Team Providers Care Swatch Maker Name Role Phone Unavailable Primary Care Provider Unavailabl e Encounter Details Date Type Department Care Team (Late st Contact Info) Description 10/15/2014 Abstract [facility] CONVERSION [address] [place] [address] Elmira Delgado APNP [address] [place] [address] Social History Tobacco Use Types Packs/Day [...]
--- OUTSIDE RECORDS SUMMARY | 2024-06-23 20:13 | XMS_ITS | Encounter Summary ---
Author Organization [facility] Address [facility] access hospital6 [facility]. [place], [place] [address] [place] [address] Care Team Providers Care Svp Digital Sales Name Role Phone Unavailable Primary Care Provider Unavailabl e Encounter Details Date Type Department Care Team (Late st Contact Info) Description 05/15/2010 Abstract [facility] Emergency Room [address] [place] [address] Kain Huff MD [address] [facility] [address] [place] [phone] Social History Tobacco Use Types Packs/Day Years Used Date Smoking Tobacco: Never Assessed Comments Unknown Sex and Gender Information Value Date Recorded Sex Assigned at Not on file Legal Sex Female 8:11 PM CDT Gender Identity Not on file Sexual Orientation Not on file documented as of this encounter Plan of Treatment Not on file documented as of this encounter Visit Diagnoses Diagnosis Pleurisy Pleurisy without mention of effusion or current tuberculosis documented in this encounter
--- OUTSIDE RECORDS SUMMARY | 2024-06-23 20:13 | XMS_ITS | Encounter Summary ---
Author Organization [facility] Address [facility]. [place], [place] [address] [place] [address] Care Team Providers Care Solar Sales Representative And Assessor Name Role Phone Unavailable Primary Care Provider Unavailabl e Encounter Details Date Type Department Care Team (Latest Contact Info) Description 10/10/2014 Abstract [facility] Medical Group , Orlin Brumfield [...] Notes * Generic Conversion MD Erin - 10/10/2014 11:48 AM CDT [facility] Authorization Release of Information First Name: Aislinn Thomas initial: Last Name: Jaswant Mixon Christina authorize [facility] to release any and all healthcare information about me to my [facility] personal health record for my own uses and purposes. I acknowledge that such healthcare information may include the following: x-rays, clinical diagnosis, histories of present illnesses, immunizations, allergies, prescription drug information, mental health screenings, treatment, including psychotherapy notes, diagnostic screening and testing, laboratory results, HIV/AIDS, infectious disease, sexually transmitted infection, genetic testing, substance/alcohol use and jamar atment history, clinical procedures, domestic violence, child abuse, family abuse, medical research, clinical trials, billing, account, and insurance information. I acknowledge that my authorization includes the authorization to disclose any information or records (within the scope of the authorization) that [facility] has received about me from other healthcare providers or facilities. [facility] may, within its discretion, withhold from disclosure any of the above information as permitted or required by law. Access to treatment or services may not be denied to me if I decline to sign this Authorization or revoke my Authorization. However, without this Authorization, my Provider will not electronically release my healthcare information to my [facility] personal health record. I may revoke this Authorization at any time. Such revocation will promptly take effect except to the extent that [facility] already has acted based on this Authorization. I may revoke this Authorization by removing [facility] as a health care provider with whichI want to be connected on my [facility] account or providing my request to [facility]. However, I acknowledge that data previously submitted by [facility] as authorized by me prior to my subsequent revocation of this Authorization will remain in my [employer] account. This authorization shall end upon the earliest of (1) the termination of the connection between my healthcare provider and my [facility] (2) upon my written request submitted to [email or web address]. For Authorized Representatives of Patients younger than 18 years old: This Authorization shall upon the earliest of: (1) the date the minor reaches the age of 18; or (2) the date [facility] receives written revocation from the minor, as an emancipated minor with legal authority to managehis/her own healthcare. I have been informed that once my healthcare information is disclosed to [facility], it will nolonger be protected health information covered by the Health Insurance Portability and Accountability Act of 1996 ( HIPAA ) and may be subject to further disclosure, subject to the [facility] Terms of Use, Privacy Policy and applicable federal and state law with respect to re- disclosures of health information. I understand that [facility] is not responsible for my health information once that data isdisclosed to [facility] pursuant to this Authorization. I have the right to receive a copy of this Authorization and may do so by clicking [Print] above. Signed on 10/10/2014 Please complete the following information: Aislinn Michaud 1985 If signing on behalf of a Patient, please complete the following: Relationship to Patient: [Place x in the appropriate box below] [X] Patient [ ] Parent/Guardian/Other Legal Clinical Quality Manager By clicking [I ACCEPT], I acknowledge and agree to the terms of this Authorization. documented in this encounter Plan of Treatment Not on file documented as of this encounter Visit Diagnoses Not on filedocumented in this encounter
--- OUTSIDE RECORDS SUMMARY | 2024-06-23 20:13 | XMS_ITS | Encounter Summary ---
Author Organization [facility] Address [facility]. [place], [place] [address] [place] [address] Care Team Providers Care Peoplesoft Financials Name Role Phone Unavailable Primary Care Provider Unavailabl e Encounter Details Date Type Department Care Team (Latest Contact Info) Description 09/23/2014 Abstract [facility] Medical Group , Orlin Brumfield MD Social History Tobacco Use Types Packs/Day Years Used Date Smoking Tobacco: Never Assessed Comments Unknown Sex and Gender Information Value Date Recorded Sex Assigned at Not on file Legal Sex Female 8:11 PM CDT Gender Identity Not on file Sexual Orientation Not on file documented as of this encounter Procedure Notes * NICK Gerardo - 09/21/2014 12:00 AM CDT [place] [address] Patient: AISLINN MEYER Med Rec#: [id number] Birthdate: 1985 Admit/Svce Date: 09/16/2014 Disch Date: Attending Md: HILDA DELGADO ANP CHART DOCUMENT SLEEP STUDY REPORT Polysomnography Report 1. 2. Patient 3. Date: 83 4. Sex: Female 5. Referring Physician: Hilda Delgado, Nurse Practitioner 6. Date of Procedure: 09/16/2014 7. Reason for Study: Suspected obstructive sleep apnea. 8. Clinical History: [place] Sleepiness Scale of 12, snoring, excessive daytime sleepiness and morning headache. 9. Recording Parameters: The following parameters were monitored. Two leads for ocular movements. Two leads for chin EMG. Two leads for EEG. Two leads for leg movements. One lead for snoring. One lead for airflow. Two leads for chest and abdominal wall movements. One lead for EKG. One lead for oxygen saturation. 10. Sleep Study Report 1. Sleep Quality: Total sleep time 397.5 minutes. Total recording time 412 minutes. Sleep quality is good. Sleep efficiency index is 96.5% normal. Sleep latency 2.5 minutes decreased. REM latency 75.5 minutes normal. Stage N1 2.8% decreased. Stage N2 63.4% increased. Stage N3 8.4% decreased. Stage REM 24.4% normal. 2. Respiratory: The RARI index was 43 increased and apnea-hypopnea index was normal at 1.7. RDI was 8.2 increased. 3. Oxygen. Mean oxygen saturation was 95.9%. The milana oxygen saturation was 90%. 4. Limb Movements: The PLM index was 9.5 normal. The PLM arousal index was 0. 5. Cardiac Events: No bradycardia, asystole, narrow complex tachycardia, wide complex tachycardia, atrial fibrillation, deceleration or acceleration were noted. 6. Others: Snoring index was 0. Diagnosis: Severe upper airway resistant syndrome. Specific Discussion and Recommendations: 1. Repeat polysomnography with CPAP titration. 2. Re-assess insomnia symptoms after CPAP titration. 4. Operation of a motor vehicle or dangerous [...] meals just prior to bedtime. 7. Encourage followup appointment to discuss results and if there are any concerns. Bigg Romero M.D. Board Certified in Sleep Medicine Electronically Signed by Bigg Romero MD 09/23/2014 09:55 P /sp 09/21/2014 09/23/2014 08:05 A Job No: [id number] Doc No: [id number] cc: Other Copy Hilda Delgado NP documented in this encounter Plan of Treatment Not on file documented as of this encounter Visit Diagnoses Not on filedocumented in this encounter
--- OUTSIDE RECORDS SUMMARY | 2024-06-23 20:13 | XMS_ITS | Encounter Summary ---
Author Organization [facility] Address [facility]. [place], [place] [address] [place] [address] Care Team Providers Care Seconds Inspector Name Role Phone Unavailable Primary Care Provider Unavailabl e Encounter Details Date Type Department Care Team (Late st Contact Info) Description 11/11/2010 Abstract [facility] [address] [place], [place] [id number] Zena Webster PA [address] [place], [place] [phone] Social History Tobacco Use Types Packs/Day Years Used Date Smoking Tobacco: Never Assessed Comments Unknown Sex and Gender Information Value Date Recorded Sex Assigned at Not on file Legal Sex Female 8:11 PM CDT Gender Identity Not on file Sexual Orientation Not on file documented as of this encounter Plan of Treatment Not on file documented as of this encounter Visit Diagnoses Diagnosis Cellulitis and abscess of toe Cellulitis and abscess of toe, unspecified documented in this encounter
--- OUTSIDE RECORDS SUMMARY | 2024-06-23 20:13 | XMS_ITS | Encounter Summary ---
Author Organization [facility] Address [facility]. [place], [place] [address] [place] [address] Care Team Providers Care Peer Educator Name Role Phone Unavailable Primary Care Provider Unavailabl e Encounter Details Date Type Department Care Team (Late st Contact Info) Description 12/24/2008 Abstract [facility] [address] [place] [address] Ian Buenrostro DO [facility] [address] [address] Social History Tobacco Use Types Packs/Day Years [...]
--- OUTSIDE RECORDS SUMMARY | 2024-06-23 20:13 | XMS_ITS | Encounter Summary ---
Author Organization [facility] Address [facility]. [place], [place] [address] [place] [address] Care Team Providers Care Sterile Preparation Technician Name Role Phone Unavailable Primary Care Provider Unavailabl e Encounter Details Date Type Department Care Team (Latest Contact Info) Description 09/16/2014 Abstract [facility] Medical Group Elmira Delgado APNP [address] [place] [phone] Social History Tobacco Use Types Packs/Day [...]
--- OUTSIDE RECORDS SUMMARY | 2024-06-23 20:13 | XMS_ITS | Encounter Summary ---
Author Organization [facility] Address [facility]. [place], [place] [address] [place] [address] Care Team Providers Care Vp Legal Affairs Name Role Phone Unavailable Primary Care Provider Unavailabl e Encounter Details Date Type Department Care Team (Late st Contact Info) Description 06/01/2011 Abstract [facility] Emergency Room [address] [place], [place] [phone] Joan Rizzo MD [address] [phone] Social History Tobacco Use Types Packs/Day Years Used Date Smoking Tobacco: Never Assessed Comments Unknown Sex and Gender Information Value Date Recorded Sex Assigned at Not on file Legal Sex Female 8:11 PM CDT Gender Identity Not on file Sexual Orientation Not on file documented as of this encounter Plan of Treatment Not on file documented as of this encounter Visit Diagnoses Diagnosis Chronic sinusitis Unspecified sinusitis (chronic) documented in this encounter
--- OUTSIDE RECORDS SUMMARY | 2024-06-23 20:13 | XMS_ITS | Encounter Summary ---
Author Organization [facility] Address [address] [place] [address]. [place], [place] [address] [place] [address] Care Team Providers Care Software Development Leader Name Role Phone Unavailable Primary Care Provider Unavailabl e Encounter Details Date Type Department Care Team (Late st Contact Info) Description 01/22/2014 [facility] [address] [place] [address] , Orlin Brumfield MD Social History Tobacco [...]
--- OUTSIDE RECORDS SUMMARY | 2024-06-23 20:13 | XMS_ITS | Encounter Summary ---
Author Organization [facility] Address [facility]. [place], [place] [address] [place] [address] Care Team Providers Care Civil Rights Investigator Name Role Phone Unavailable Primary Care Provider Unavailabl e Encounter Details Date Type Department Care Team (Late st Contact Info) Description 10/08/2014 Abstract [facility] Medical Group Family & Internal Medicine [facility] [address] [place] [address] [place] [address] [place], [place] [id number] Social History Tobacco Use Types Packs/Day Years Used Date Smoking Tobacco: Never Assessed Comments Unknown Sex and Gender Information Value Date Recorded Sex Assigned at Not on file Legal Sex Female 8:11 PM CDT Gender Identity Not on file Sexual Orientation Not on file documented as of this encounter Last Filed Vital Signs Vital Sign Reading Time Taken Comments Blood Pressure 110/70 10/08/2014 9:47 AM CDT Pulse 66 10/08/2014 9:47 AM CDT Temperature - - Respiratory Rate - - Oxygen Saturation - - Inhaled Oxygen Concentration - - Weight 112 kg (247 lb) 10/08/2014 9:47 AM CDT Height 157.5 cm (5' 2 ) 10/08/2014 9:47 AM CDT Body Mass Index 45.18 10/08/2014 9:47 AM CDT documented in this encounter Progress Notes * NICK Gerardo - 10/08/2014 9:30 AM CDT Reason For Visit Reason For Visit: Acute Visit Chief Complaint here to discuss her sleep study results. History of Present Illness Aislinn established care one month ago and was concerned about her weight and her sleep. Requested records from previous PCP before ordering lab work and in the meantime ordered a sleep study and referred her to marketing data specialist. Records received but no lab work since prior to July,. The patient is being seen for an initial evaluation of an existing diagnosis of obstructive sleep apnea. Symptoms: excessive daytime sleepiness, snoring, unrefreshing sleep, sleepy when sedentary, impaired concentration and memory problems. The patient is currently experiencing symptoms. No associated symptoms are reported. The patient is not currently being treated for this problem. Pertinent medical history: obesity. Family history: obesity. Review of Systems See HPI for pertinent positives. Constitutional: Normal. ENT: normal. Cardiovascular: Normal. Respiratory: Normal. Gastrointestinal: Normal. Genitourinary: Normal. Integumentary: Normal. Musculoskeletal: Normal. Neurological: Normal. Psychiatric: Normal. Active Problems 1. Fatigue (780.79) (R53.83) 2. Obesity (278.00) (E66.9) Past Medical History Patient indicats no significant past medical history. Surgical History 1. History of Hip Surgery 2. 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 Managed by Cleft Palate Team with [facility] at [facility]. Dr. Cleopatra PRINGLE Family History Mother [...] ?? No drug use Current Meds 1. No Reported Medications Recorded CORETTA = N; Record; Last Updated By: Matteo Anand; 09/03/2014 9:08:02 AM Allergies 1. Sulfa Drugs Itching; Swelling; Recorded By: Matteo Anand; 09/03/2014 9:07:30 AM Vitals Vital Signs [Data Includes: Current Encounter] Recorded: 08Oct2014 09:47AM Heart Rate 66 Systolic 110 Diastolic 70 O2 Saturation 99 Height 5 ft 2 in Weight 247 lb BMI Calculated 45.18 BSA Calculated 2.09 Physical Exam Constitutional General appearance: Abnormal. Patient was observed to be morbidly obese. Ears, Nose, Mouth, and Throat External inspection of ears and nose: Normal. Pulmonary Respiratory effort: No increased work of breathing or signs of respiratory distress. Cardiovascular Examination of extremities for edema and/or varicosities: Normal. Abdomen Abdomen: Abnormal. The abdomen was obese. Bowel sounds were normal. Lymphatic Palpation of lymph nodes in neck: No lymphadenopathy. Musculoskeletal Gait and station: Normal. Psychiatric Orientation to person, place, and time: Normal. Mood and affect: Normal. Assessment 1. VICKIE (obstructive sleep apnea) (327.23) (G47.33) 2. Screening for deficiency anemia (V78.1) (Z13.0) 3. Screening for diabetes mellitus (V77.1) (Z13.1) 4. Screening for hyperlipidemia (V77.91) (Z13.220) 5. Screening for thyroid disorder (V77.0) (Z13.29) Plan Fatigue, Obesity, Screening for diabetes mellitus 1. Compr Metabolic Prof ( CMP ); Status:Hold For - Manual Activation; Requested for:08Oct2014; Perform:[facility]; Due:07Nov2014;Ordered; For:Fatigue, Obesity, Screening for diabetes mellitus; Ordered By:Elmira Delgado; Screening for deficiency anemia 2. CBC W Differential; Status:Hold For - Manual Activation; Requested for:08Oct2014; Perform:[facility]; Due:07Nov2014;Ordered; For:Screening for deficiency anemia; Ordered By:Elmira Delgado; Screening for diabetes mellitus 3. Hemoglobin A1C ( HA1C ); Status:Hold For - Manual Activation; Requested for:08Oct2014; Perform:[facility]; Due:07Nov2014;Ordered; For:Screening for diabetes mellitus; Ordered By:Elmira Delgado; 4. Urine Microalbumin; Status:Hold For - Manual Activation; Requested for:[id number]; Perform:. [facility]; Due:07Nov2014;Ordered; For:Screening for diabetes mellitus; Ordered By:Elmira Delgado; Screening for hyperlipidemia 5. Lipid W/ Calculated LDL; Status:Hold For - Manual Activation; Requested for:[id number]; Perform:[facility]; Due:07Nov2014;Ordered; For:Screening for hyperlipidemia; Ordered By:Elmira Delgado; Screening for thyroid disorder 6. Thyroid Stim Hormone ( TSH ); Status:Hold For - Manual Activation; Requested for:08Oct2014; Perform:. [facility]; Due:07Nov2014;Ordered; For:Screening for thyroid disorder; Ordered By:Elmira Delgado; Call and schedule CPAP titration with sleep lab. Will order supplies based on the results of the study. In the meantime, follow the recommendations for good sleep hygiene. Blood work ordered. Have fasting labs drawn at earliest convenience. Will call with results and plan of care. Follow-up as needed. Signatures Electronically signed by : Elmira Delgado APN; Oct 08 2014 10:35AM PHYSICIAN [facility] (Author) documented in this encounter Plan of Treatment Not on file documented as of this encounter Procedures Procedure Name Priority Date/Time Associated Diagnosis Comments LIPID W/CALC LDL Routine 10/17/2014 5:53 PM CDT ALBUMIN URINE RANDOM WO/CREATININE Routine 10/17/2014 5:53 PM CDT HEMOGLOBIN, GLYCOSYLATED Routine 10/17/2014 5:53 PM CDT COMPREHENSIVE METABOLIC PANEL Routine 10/17/2014 5:53 PM CDT CBC W/DIFF AUTOMATED Routine 10/17/2014 5:53 PM CDT THYROID STIM HORMONE TSH Routine 10/17/2014 5:53 PM CDT documented in this encounter Results * THYROID STIM HORMONE, TSH (10/17/2014 5:53 PM CDT) TSH 1.02 0.35 - 4.94 uIU/mL [facility] TO EPIC CONVERSION 10/17/2014 5:53 PM CDT 10/17/2014 5:53 PM CDT Narrative [facility] TO [facility]IC CONVERSION - 10/17/2014 7:08 PM CDT Result Communication: No patient communication needed at this time us Elmira [facility] Final Res ult Performing Organization Address [facility]/ZIP Co de Phone Number [facility] TO EPIC CONVERSION * HEMOGLOBIN, GLYCOSYLATED (10/17/2014 5:53 PM CDT) HGB A1C 4.9 <5.7 % [facility] T O EPIC CONVERSION Comment: Result Comment: ?? INCREASED RISK OF DIABETES <5.7% ?NON-DIABETES 5.7-6.4% INCREASED RISK FOR FUTURE DIABETES > OR = 6.5 CONSISTENT WITH DIABETES ?? STANDARDS OF MEDICAL CARE IN DIABETES-2010 DIABETES CARE, 33(SUPP 1): S1-S61,2010 10/17/2014 5:53 PM CDT 10/17/2014 5:53 PM CDT Narrative [facility] TO EPIC CONVERSION - 10/17/2014 7:18 PM CDT Result Communication: No patient communication needed at this time us Elmira [facility] Final Res ult [facility] TO EPIC CONVERSION * URINE MICROALBUMIN (10/17/2014 5:53 PM CDT) MICROALBUMIN (U) 1+ N [facility] TO EPIC CONVERSION 10/17/2014 5:53 PM CDT 10/17/2014 5:53 PM CDT Narrative [facility] TO [facility] CONVERSION - 10/17/2014 9:51 PM CDT Result Communication: Call patient with results us Elmira [facility] Final Res ult [facility] TO EPIC CONVERSION * (ABNORMAL) CBC W/DIFF AUTOMATED (10/17/2014 5:53 PM CDT) WBC 8.1 4.4 - 11.0 K/UL [facility] TO EPIC CONVERSION RBC 4.49(L) 4.5 - 5.1 M/UL [facility] TO EPIC CONVERSION HGB 12.7 12.3 - 15.3 G/DL [facility] TO EPIC CONVERSION HCT 37.7 35.9 - 44.6 % [facility] TO EPIC CONVERSION MCV 84.0 80 - 96 FL [facility] TO EPIC CONVERSION MCH 28.3 25.3 - 30.9 PG [facility] TO EPIC CONVERSION MCHC 33.7 31.0 - 34.1 G/DL [facility] TO EPIC CONVERSION RDW 13.2 12.4 - 15.1 % [facility] TO EPIC CONVERSION PLT 354(H) 151 - 353 K/UL [facility] TO EPIC CONVERSION MPV 10.8 9.6 - 12.0 FL [facility] TO EPIC CONVERSION BASOPHILS % 0.6 0.0 - 1.3 % [facility] TO EPIC CONVERSION EOSINOPHILS % 1.8 0.0 - 5.6 % [facility] TO EPIC CONVERSION NEUTROPHILS % 60.6 42.1 - 71.9 % [facility] TO EPIC CONVERSION LYMPHOCYTES % 31.3 15.8 - 45.0 % [facility] TO EPIC CONVERSION MONOCYTES % 5.3(L) 5.7 - 12.5 % [facility] TO EPIC CONVERSION IMMATURE GRANS % 0.4 0.0 - 0.5 % [facility] TO EPIC CONVERSION ABS. NEUTROPHILS TOTAL 4.9 1.4 - 6.0 K/UL [facility] TO EPIC CONVERSION WBC MORPHOLOGY NORMAL [facility] OUP TO EPIC CONVERSION PLT MORPH. NORMAL [facility] TO EPIC CONVERSION RBC MORPHOLOGY NORMAL [facility] OUP TO EPIC CONVERSION 10/17/2014 5:53 PM CDT 10/17/2014 5:53 PM CDT Narrative [facility] TO EPIC CONVERSION - 10/17/2014 6:41 PM CDT Result Communication: No patient communication needed at this time us Elmira Gonzalezdebora APNP LABORATORY Final Res ult [facility] TO EPIC CONVERSION * COMPREHENSIVE METABOLIC PANEL (10/17/2014 5:53 PM CDT) SODIUM S/P/B 141 136 - 145 MMOL/L [facility] TO EPIC CONVERSION POTASSIUM S/P/B 4.3 3.5 - 5.1 MMOL/L [facility] TO EPIC CONVERSION CHLORIDE S/P/B 107 98 - 107 MMOL/L [facility] TO EPIC CONVERSION CO2 26.0 22 - 29 MMOL/L [facility] TO EPIC CONVERSION ANION GAP 12.3 10.0 - 24.0 MMOL/L [facility] TO EPIC CONVERSION BUN 9 7.0 - 18.7 MG/DL [facility] TO EPIC CONVERSION CREATININE S/P/B 0.8 0.57 - 1.11 MG/DL [facility] TO EPIC CONVERSION GFR ESTIMATE >60 ?? GFR Reference Range: Kidney Failure - <15mL/min Chronic Kidney Disease - <60mL/min Normal Kidney Function - >60mL/min GFR calculation is not recommended for Patients less than 18 years or greater than 70 years as per the national Kidney Foundation. If the patient is -Ramandeep n, multiply results by 1.21 >60 ml/min/1 .73 m2 [facility] TO EPIC CONVERSION BUN CREATININE RATIO 11.3 6.0 - 26.0 [facility] TO EPIC CONVERSION GLUCOSE 94 70 - 105 MG/DL [facility] TO EPIC CONVERSION OSMOLALITY (CALC) 280 271 - 290 MOSM/KG [facility] TO EPIC CONVERSION CALCIUM S/P/B 9.4 8.4 - 10.2 MG/DL [facility] TO EPIC CONVERSION BILIRUBIN TOTAL S/P/B 0.6 0.2 - 1.2 MG/DL [facility] TO EPIC CONVERSION AST 17 5 - 34 UNITS/L [facility] TO EPIC CONVERSION ALT 17 6 - 55 UNITS/L [facility] TO EPIC CONVERSION ALKALINE PHOSPHATASE S/P/B 109 30 - 115 UNITS/L [facility] TO EPIC CONVERSION TOTAL PROTEIN S/P/B 7.2 6.4 - 8.3 G/DL [facility] TO EPIC CONVERSION ALBUMIN S/P/B 4.2 3.5 - 5.0 G/DL [facility] TO EPIC CONVERSION A/G RATIO 1.4 1.1 - 1.9 RATIO [facility] TO EPIC CONVERSION 10/17/2014 5:53 PM CDT 10/17/2014 5:53 PM CDT Narrative [facility] TO EPIC CONVERSION - 10/17/2014 6:44 PM CDT Result Communication: No patient communication needed at this time us Elmira Delgado APNP LABORATORY Final Res ult [facility] TO EPIC CONVERSION * (ABNORMAL) LIPID W/CALC LDL (10/17/2014 5:53 PM CDT) CHOLESTEROL 173 <200 MG/DL [facility] P TO EPIC CONVERSION TRIGLYCERIDES 86 <150 MG/DL [facility] OUP TO EPIC CONVERSION HDL 42(L) >55 MG/DL [facility] T O EPIC CONVERSION LDL (CALCULATED) 113.8 <130 MG/L [facility] TO EPIC CONVERSION CHOL/HDL RATIO 4.12 [facility] OUP TO EPIC CONVERSION Comment: Result Comment: ? INTERPRETATION OF RESULTS NHLBI RECOMMENDED RANGES ? CHOLESTEROL MG/DL ?LDL MG/DL ?DESIRABLE ? <200 ?<130 ?BORDERLINE ?200-239 ? 130-159 ?HIGH RISK ? >240 ?>160 ?? REFERENCE VALUE FOR HDL CHOLESTEROL ?RISK LEVEL ??MALE MG/DL ? FEMALE MG/DL ?DECREASED ?>45 ?>55 ?AVERAGE ? 45 ? 55 ?INCREASED ?<45 ?<55 10/17/2014 5:53 PM CDT 10/17/2014 5:53 PM CDT Narrative [facility] TO EPIC CONVERSION - 10/17/2014 6:44 PM CDT Result Communication: No patient communication needed at this time us Elmira [facility] Final Res ult [facility] TO EPIC CONVERSION documented in this encounter Visit Diagnoses Not on filedocumented in this encounter
--- OUTSIDE RECORDS SUMMARY | 2024-06-23 20:13 | XMS_ITS | Encounter Summary ---
Author Organization [facility] Address [facility]. [place], [place] [address] [place] [address] Care Team Providers Care Manager Water Name Role Phone Unavailable Primary Care Provider Unavailabl e Encounter Details Date Type Department Care Team (Late st Contact Info) Description 09/16/2014 Abstract [facility] [address] [place] [address] Elmira Delgado APNP [address] [place] [phone] Social History Tobacco Use Types Packs/Day [...] of this encounter Visit Diagnoses Diagnosis Other malaise and fatigue documented in this encounter
--- OUTSIDE RECORDS SUMMARY | 2024-06-23 20:13 | XMS_ITS | Encounter Summary ---
Author Organization [facility] Address [address] [place] [address]. [place] [address] Care Team Providers Care Reserves Clerk Name Role Phone Unavailable Primary Care Provider Unavailabl e Encounter Details Date Type Department Care Team (Latest Contact Info) Description 09/05/2014 Abstract [facility] Medical Group Social History Tobacco Use [...]
--- OUTSIDE RECORDS SUMMARY | 2024-06-23 20:13 | XMS_ITS | Encounter Summary ---
Author Organization [facility] Address [facility]. [place], [place] [address] [place] [address] Care Team Providers Care Honing Machine Set Up Operator Tool Name Role Phone Unavailable Primary Care Provider Unavailabl e Encounter Details Date Type Department Care Team (Latest Contact Info) Description 10/18/2014 Abstract [facility] Medical Group Social History Tobacco Use Types Packs/Day Years Used Date Smoking Tobacco: Never Assessed Comments Unknown Sex and Gender Information Value Date Recorded Sex Assigned at Not on file Legal Sex Female 8:11 PM CDT Gender Identity Not on file Sexual Orientation Not on file documented as of this encounter Progress Notes * Elmira Delgado, NICK - 10/18/2014 8:25 AM CDT Message Please let Aislinn know that labs are o.k. Will recheck in one year. Recommend she cut back on sugars and carbohydrates. Thank you. Addressed in separate task Addressed in separate task Addressed in separate task Addressed in separate task Addressed in separate task Verified Results Thyroid Stim Hormone ( TSH ) 17Oct2014 05:53PM Elmira Delgado Test Name Result Flag Reference Thyroid Stim Hormone (TSH) 1.02 uIU/mL 0.35-4.94 CBC W Differential 17Oct2014 05:53PM Elmira Delgado Test Name Result Flag Reference White Blood Cell Count (WBC) 8.1 K/UL 4.4-11.0 Red Blood Cell Count (RBC) 4.49 M/UL L 4.5-5.1 Hemoglobin (HGB) 12.7 G/DL 12.3-15.3 Hematocrit (HCT) 37.7 % 35.9-44.6 Mean Corpuscular Volume (MCV) 84.0 FL 80-96 Mean Corpuscular Hgb (MCH) 28.3 PG 25.3-30.9 Mean Corpuscular Hgb Conc (MCH 33.7 G/DL 31.0-34.1 Red Cell Distrib Width (RDW) 13.2 % 12.4-15.1 Platelet Count (PLT) 354 K/UL H 151-353 Mean Platelet Volume (MPV) 10.8 FL 9.6-12.0 Basophils % (Auto) 0.6 % 0.0-1.3 Eosinophils % (Auto) 1.8 % 0.0-5.6 Neutrophils % (Auto) 60.6 % 42.1-71.9 Lymphocytes % (Auto) 31.3 % 15.8-45.0 Monocytes % (Auto) 5.3 % L 5.7-12.5 Immature Granulocytes 0.4 % 0.0-0.5 Total Absolute Neutrophils 4.9 K/UL 1.4-6.0 WBC Morphology NORMAL Platelet Evaluation NORMAL RBC Morphology NORMAL Compr Metabolic Prof ( CMP ) 17Oct2014 05:53PM Elmira Delgado Test Name Result Flag Reference Sodium (Na) 141 MMOL/L 136-145 Potassium (K) 4.3 MMOL/L 3.5-5.1 Chloride (Cl) 107 MMOL/L 98-107 Carbon Dioxide (CO2) 26.0 MMOL/L 22-29 Anion Gap 12.3 MMOL/L 10.0-24.0 Blood Urea Nitrogen (BUN) 9 MG/DL 7.0-18.7 Creatinine 0.8 MG/DL 0.57-1.11 Glomerular Filt Rate Calc (Report) >60 >60 GFR Reference Range: Kidney Failure - <15mL/min Chronic Kidney Disease - <60mL/min Normal Kidney Function - >60mL/min GFR calculation is not recommended for Patients less than 18 years or greater than 70 years as per the national Kidney Foundation. If the patient is -Macedonian, multiply results by 1.21 BUN Creatinine Ratio 11.3 6.0-26.0 Glucose 94 MG/DL 70-105 Osmolality Calc 280 MOSM/KG 271-290 Calcium 9.4 MG/DL 8.4-10.2 Total Bilirubin 0.6 MG/DL 0.2-1.2 AST/GOT 17 UNITS/L 5-34 ALT/GPT 17 UNITS/L 6-55 Alkaline Phosphatase (ALKP) 109 UNITS/L 30-115 Total Protein 7.2 G/DL 6.4-8.3 Albumin 4.2 G/DL 3.5-5.0 A:G Ratio 1.4 RATIO 1.1-1.9 Urine Microalbumin 17Oct2014 05:53PM Elmira Delgado Test Name Result Flag Reference Urine Microalbumin 1+ N Lipid W/ Calculated LDL 17Oct2014 05:53PM Elmira Delgado Test Name Result Flag Reference CHOLESTEROL 173 MG/DL <200 TRIGLYCERIDE 86 MG/DL <150 HDL CHOLESTEROL 42 MG/DL L >55 LDL CALCULATED 113.8 MG/L <130 CHOL/HDL RATIO 4.12 INTERPRETATION OF RESULTS NHLBI RECOMMENDED RANGES CHOLESTEROL MG/DL LDL MG/DL DESIRABLE <200 <130 BORDERLINE 200-239 130-159 HIGH RISK >240 >160 REFERENCE VALUE FOR HDL CHOLESTEROL RISK LEVEL MALE MG/DL FEMALE MG/DL DECREASED >45 >55 AVERAGE 45 55 INCREASED <45 <55 Hemoglobin A1C ( HA1C ) 17Oct2014 05:53PM Elmira Delgado Test Name Result Flag Reference Hemoglobin A1c 4.9 % <5.7 INCREASED RISK OF DIABETES <5.7% NON-DIABETES 5.7-6.4% INCREASED RISK FOR FUTURE DIABETES > OR = 6.5 CONSISTENT WITH DIABETES STANDARDS OF MEDICAL CARE IN DIABETES-2009 DIABETES CARE, 33(SUPP 1): S1-S61,2009 documented in this encounter Plan of Treatment Not on file documented as of this encounter Visit Diagnoses Not on filedocumented in this encounter
--- OUTSIDE RECORDS SUMMARY | 2024-06-23 20:13 | XMS_ITS | Encounter Summary ---
Author Organization [facility] Address [facility]. [place], [place] [address] [place] [address] Care Team Providers Care Senior Mobile Developer Name Role Phone Unavailable Primary Care Provider Unavailabl e Encounter Details Date Type Department Care Team (Latest Contact Info) Description 10/15/2014 Abstract [facility] Medical Group Elmira Delgado APNP [address] [place] [phone] Social History Tobacco Use Types Packs/Day [...]
--- OUTSIDE RECORDS SUMMARY | 2024-06-23 20:13 | XMS_ITS | Encounter Summary ---
Author Organization [facility] Address [facility]. [place], [place] [address] [place] [address] Care Team Providers Care Correctional Therapy Teacher Name Role Phone Unavailable Primary Care Provider Unavailabl e Encounter Details Date Type Department Care Team (Late st Contact Info) Description 10/17/2014 Abstract [facility] [address] [place] [address] Elmira Delgado APNP [address] [place] [phone] Social History Tobacco Use Types Packs/Day [...]
--- OUTSIDE RECORDS SUMMARY | 2024-06-23 20:13 | XMS_ITS | Encounter Summary ---
Author Organization [facility] Address [address] [place] [address]. [place], [place] [address] [place] [address] Care Team Providers Care Dispatcher Relay Name Role Phone Unavailable Primary Care Provider Unavailabl e Encounter Details Date Type Department Care Team (Late st Contact Info) Description 01/22/2014 Abstract [facility] [address] [place] [address] , Orlin Brumfield MD Social History Tobacco [...]
--- OUTSIDE RECORDS SUMMARY | 2024-06-23 20:13 | XMS_ITS | Encounter Summary ---
Author Organization [facility] Address [facility] [facility]. [place], [place] [address] [place] [address] Care Team Providers Care Eyeglass Frames Inspector Name Role Phone Unavailable Primary Care Provider Unavailabl e Encounter Details Date Type Department Care Team (Late st Contact Info) Description 01/22/2014 Abstract [facility] [address] [place], [place] [id number] Ray Kennedy MD [facility] [place], [place] [phone] Social History Tobacco Use Types Packs/Day Years Used Date Smoking Tobacco: Never Assessed Comments Unknown Sex and Gender Information Value Date Recorded Sex Assigned at Not on file Legal Sex Female 8:11 PM CDT Gender Identity Not on file Sexual Orientation Not on file documented as of this encounter Plan of Treatment Not on file documented as of this encounter Visit Diagnoses Diagnosis Shortness of breath documented in this encounter
--- OUTSIDE RECORDS SUMMARY | 2024-06-23 20:13 | XMS_ITS | Encounter Summary ---
Author Organization [facility] Address [address] [place] [address]. [place], [place] [address] [place] [address] Care Team Providers Care Xerox Machine Mechanic Name Role Phone Unavailable Primary Care Provider Unavailabl e Encounter Details Date Type Department Care Team (Latest Contact Info) Description 10/21/2014 Abstract [facility] Medical Group Social History Tobacco Use Types Packs/Day Years Used Date Smoking Tobacco: Never Assessed Comments Unknown Sex and Gender Information Value Date Recorded Sex Assigned at Not on file Legal Sex Female 8:11 PM CDT Gender Identity Not on file Sexual Orientation Not on file documented as of this encounter Progress Notes * Orlin Brumfield Md, MD - 10/21/2014 4:08 PM CDT Message Recorded as Task Date: 10/18/2014 08:25 AM, Created By: Elmira Delgado Task Name: Call Patient with results Assigned To: Elmira Delgado Regarding Patient: Aislinn Michaud, Status: Active Comment: Elmira Delgado - 18 Oct 2014 8:25 AM Patient Please let Aislinn know that labs are o.k. Will recheck in one year. Recommend she cut back on sugars and carbohydrates. Thank you. Shannan Mireles - 21 Oct 2014 4:08 PM TASK EDITED Pt returned call and was given test results and verbalized understanding. Task complete. Signatures Electronically signed by : Shannan Mireles, ; Oct 21 2014 4:08PM COATING OPERATOR (Author) documented in this encounter Plan of Treatment Not on file documented as of this encounter Visit Diagnoses Not on filedocumented in this encounter
--- OUTSIDE RECORDS SUMMARY | 2024-06-23 20:13 | XMS_ITS | Encounter Summary ---
Author Organization [facility] Address [facility]6 [facility]. [place], [place] [address] [place] [address] Care Team Providers Care Anthropology Faculty Member Name Role Phone Unavailable Primary Care Provider Unavailabl e Encounter Details Date Type Department Care Team (Late st Contact Info) Description 07/05/2001 Abstract [facility] CONVERSION [address] [place], [place] [id number] , Generic Conversion, Social History Tobacco Use Types Packs/Day Years [...]
--- OUTSIDE RECORDS SUMMARY | 2024-06-23 20:13 | XMS_ITS | Encounter Summary ---
Author Organization [facility] Address [facility] [place], [place] [id number] [place] [id number] Care Team Providers Care Aircraft Pilot Name Role Phone Unavailable Primary Care Provider Unavailabl e Encounter Details Date Type Department Care Team (Late st Contact Info) Description 09/03/2014 Abstract [facility] Family & [facility] [address] [place] [address] [place] [address] [place], [place] [id number] Social History Tobacco Use Types Packs/Day Years Used Date Smoking Tobacco: Never Assessed Comments Unknown Sex and Gender Information Value Date Recorded Sex Assigned at Not on file Legal Sex Female 8:11 PM CDT Gender Identity Not on file Sexual Orientation Not on file documented as of this encounter Last Filed Vital Signs Vital Sign Reading Time Taken Comments Blood Pressure 134/82 09/03/2014 9:00 AM AUTOMATIC LUMP MAKING MACHINE TENDER Pulse - - Temperature - - Respiratory Rate - - Oxygen Saturation - - Inhaled Oxygen Concentration - - Weight 112.9 kg (249 lb) 09/03/2014 9:00 AM AUTOMATIC LUMP MAKING MACHINE TENDER Height 157.5 cm (5' 2 ) 09/03/2014 9:00 AM AUTOMATIC LUMP MAKING MACHINE TENDER Body Mass Index 45.54 09/03/2014 9:00 AM AUTOMATIC LUMP MAKING MACHINE TENDER documented in this encounter Progress Notes * NICK Gerardo - 09/03/2014 9:00 AM CST Reason For Visit Reason For Visit: New Patient Visit Chief Complaint establish care History of Present Illness HPI Free Text: Aislinn is here today to establish care and to discuss her weight, fatigue, and what she describes as urge incontinence. She was a patient of Dr. Diego but he does not take her new insurance. She last saw a PCP <1 year ago. HM, Adult Female: The patient is being seen for a Establish Care evaluation. The last health maintenance visit was <1 year(s) ago. Social History: Household members include 1 daughter(s), 1 son(s) and parents. She is . 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 The patient has never smoked cigarettes. She reports rare alcohol use. The patient has no concerns about alcohol abuse. She has never used illicit drugs. General Health: The patient's health since the last visit is described as fair . Weight issues and fatigue. She has regular dental visits. She denies vision problems. She denies hearing loss. Lifestyle:. She does not have a healthy diet. She has weight concerns. Weight control issues: obesity and serious weight loss attempts. She does not exercise regularly. She does not use tobacco. She denies alcohol use. She denies drug use. Reproductive health:. She reports normal menses. She uses contraception. For contraception, she hashad a tubal occlusion. She is sexually active. She is monogamous with a male partner. history: G 2P 2, 2. Screening: Cervical cancer screening includes a pap smear performed last year, uncertain timing of her last human papilloma virus screening and no previous colposcopy. Breast cancer screening includes no previous mammogram, a clinical breast exam performed last year and no breast self-exams. She hasn't been previously screened for colorectal cancer. Metabolic screening includes uncertain timing of her last lipid profile, uncertain timing of her last glucose screening, uncertain timing of her last thyroid function test and no previous DEXA. Cardiovascular risk factors: stress, obesity and sedentary lifestyle, but no hypertension, no diabetes, no tobacco use, no illicit drug use and no family history of cardiovascular disease. General health risks: abnormal cervical cytology and positive screening for human papilloma virus, but no previous breast cancer and no hormone therapy. Safety elements used: seat belt. Fatigue: Aislinn Michaud presents with complaints of fatigue. Associated symptoms include post exertional fatigue, impaired concentration, irritability, depression and weight gain, but no poor sleep, no headache, no anorexia, no nausea, no fever, no lightheadedness, no anxiety, no chronic cough, no heat intolerance and no cold intolerance. Obesity (Brief): The patient is being seen for an initial evaluation of obesity. Symptoms: excess weight and inability to lose weight. The patient is currently experiencing symptoms. Associated symptoms: fatigue, edema, back pain, joint pain, depressed mood and poor self esteem, but no excessive sweating. The patient is not currently being treated for this problem. No associated conditions are noted. Reported interest in weight loss is high. Diets tried in the past include low calorie. Pertinent medical history: childhood obesity. Risk factors: sedentary lifestyle. Family history: obesity anddiabetes. Urge Incontinence, Urinary (Initial): The patient is being seen for an initial evaluation of urge incontinence. Symptoms: urinary urgency The patient presents with complaints of sudden onset of mild urinary incontinence, described as small volume. Symptoms are made worse by coughing, sneezing, exercise, heavy lifting, full bladder and caffeine. Symptoms are unchanged. The patient is currently experiencing symptoms. No associated sympt oms are reported. The patient is not currently being treated for this problem. Review of Systems Complete-Female: See HPI for pertinent positives. Constitutional: as noted in HPI and fatigue. Head and Face: negative. Eyes: negative. ENT: negative. Cardiovascular: negative. Respiratory: negative. Gastrointestinal: negative. Genitourinary: urinary urgency, but no urinary frequency and no flank pain. Musculoskeletal: as noted in HPI and back pain. Integumentary negative. Breasts Negative. Neurological Negative and As Noted in HPI. Psychiatric: negative. Endocrine Negative. Hematologic and Lymphatic: negative. Surgical History 1. History of Hip Surgery 2. 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 Managed by Cleft Palate Team with [facility]. Dr. Cleopatra PRINGLE [...] Vital Signs [Data Includes: Current Encounter] Recorded: 03Sep2014 09:00AM Systolic 134 Diastolic 82 Height 5 ft 2 in Weight 249 lb BMI Calculated 45.54 BSA Calculated 2.1 Physical Exam Constitutional General appearance: Abnormal. Patient was observed to be, but well developed. Neck Neck: Normal, supple, trachea midline, no masses. Thyroid: Normal, no thyromegaly. Pulmonary Respiratory effort: No increased work of breathing or signs of respiratory distress. Auscultation of lungs: Abnormal. Auscultation of the lungs revealed decreased breath sounds diffusely. Cardiovascular Auscultation of heart: Normal rate and rhythm, normal S1 and S2, no murmurs. Peripheral vascular exam: Normal pulses Throughout. Abdomen Abdomen: Abnormal. The abdomen was obese. Bowel sounds were diminished. The abdomen was soft. Liver and spleen: No hepatomegaly or splenomegaly. Psychiatric Orientation to person, place, and time: Normal. Mood and affect: Normal. Assessment 1. 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 Managed by Cleft Palate Team with [facility]. Dr. Cleopatra PRINGLE 2. Family history of cardiac disorder (V17.49) (Z82.49) : Mother 3. Family history of heart murmur (V17.49) (Z82.49) : Brother 4. Family history of hypertension (V17.49) (Z82.49) : Mother 5. Family history of diabetes mellitus (V18.0) (Z83.3) : Paternal Grandmother 6. Family history of Brainstem stroke syndrome : Maternal Grandfather 7. Family history of malignant neoplasm (V16.9) (Z80.9) : Maternal Grandmother, Paternal Grandfather, Paternal Uncle 8. Never a smoker 9. No drug use 10. Caffeine use (V49.89) (Z78.9) 11. Alcohol use (V49.89) (F10.99) 12. 13. Obesity (278.00) (E66.9) 14. Fatigue (780.79) (R53.83) Plan Fatigue, Obesity 1. Sleep Study Referral Outpatient Suffers excessive daytime sleepiness even after full night's sleep and reports being told she snores. Has been putting on weight for about 3 years and is obese. Is also making a serious attempt at weight loss. Status: Need Information - Financial Authorization Requested for: 03Sep2014 Ordered; For: Fatigue, Obesity; Ordered By: Elmira Delgado Performed: Due: 04Dec2014 Obesity 2. Statement Request Clerk Referral Outpatient Patient presents today with a serious interest in weight loss. She is requesting to meet with a fiscal services director Status: Need Information - Financial Authorization Requested for: 03Sep2014 Ordered; For: Obesity; Ordered By: Elmira Delgado Performed: Due: 17Sep2014 Fatigue: Will await records from prior PCP. If not available, will check for anemia and thyroid problems at next visit. With reported weight gain and complaints of daytime sleepiness, will refer for sleep study and treat according to recommendations. Weight gain: Will refer to fiscal services director. Start a food log logging all the food you eat. Begin working activity into your daily life in small amounts. Make one small change until it becomes a habit before adding another. Losing weight will help your sleep and leave you feeling more energized. Doing normal daily activities will not be so difficult at a healthy weight. Urge incontinence: Losing weight and cutting caffeine out of your diet will greatly improve these symptoms. You have described this problem as mild right now and it may resolve with lifestyle changes. Discussion/Summary Discussed with patient different diets for weight loss including the JEFF, the DASH, and Weight Watchers. She is interested in meeting with a fiscal services director. Would like to see her in one month after she has followed-up with referrals and after I have the results of lab work to see if there is a medical reason for her symptoms. 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 Goes to Dr. Wick, Chiropractor in [place], [place], regularly. 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
--- OUTSIDE RECORDS SUMMARY | 2024-06-23 20:21 | XMS_ITS | Clinical Summary ---
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 Gender Identity Not on file Sexual Orientation Not on file Plan of Treatment Health Maintenance Due Date Last Done Comments Hepatitis C Virus (HCV) Screening 1984 TdaP Immunization 1984 Hepatitis B Immunization (1 of 3 - 19+ 3-dose series) 2003 Pap Smear 2005 Cervical Cancer Screening (CCS) 2014 HPV/Cotest 2014 SARS-COV-2 Immunization ( season) 2023 08/19/2020, 07/22/2020 Influenza Immunization (Seas on Ended) 2024 Meningococcal Immunization (ACWY) Aged Out No longer eligible b ased on patient's age to complete this topic Pneumococcal Immunization Combined Aged Out No longer eligible b ased on patient's age to complete this topic Rotavirus Immunization Aged Out No lo nger eligible based on patient's age to complete this topic
--- OUTSIDE RECORDS SUMMARY | 2024-06-23 20:21 | XMS_ITS | Data Portability ---
Author Organization [facility] Address [address] [place] [address] Care Team Providers Care Environmental Scientists Name Role Phone BRENDON CAES Primary Care Provider [phone] Assessment No assessment recorded. Plan of Treatment Reminders Order Date Submit Date Provider Last Modified By Organization Details Last Modified Time Details Appointments None recorded. Lab None recorded. Referral None recorded. Procedures None recorded. Surgeries total hysterectom y, laparoscopi c, with bilateral salpingo-oo phorectomy (SURG) 2023 024 [facility], [facility] [address], [place], [address], 4 10:27:03 Imaging US, pelvis 2023 [address], [address], [place], [address], 4 18:50:13 US, transvagina l [address], [address], [place], [address], 4 18:50:13 Medication Orders Sangita 0.35 mg tablet 2023 024 [facility], [address] [place] [address], [place], [address], 4 10:12:18 Patient TargetsNo targets recorded. Patient InstructionsNo instructions recorded. Reason for Referral None Reported. Results Created Date Observation Date Name Description Value Unit Range Abnormal Flag Note LastModifiedBy Organization Detail LastModifiedTime 09/29/19 24 09/29/2023 US, pelvi s No observ ation record ed. [email or web address] [facility] [address], [place], [address], 09/29/2023 13:20:01 09/29/19 24 09/29/2023 US, trans vagin al No observ ation record ed. [email or web address] [facility] [address], [place], [address], 09/29/2023 13:19:53 09/29/19 24 09/29/2023 US, pelvi s No observ ation record ed. [email or web address] [address], [place], [address], 09/29/2023 22:43:02 06/18/20 24 06/18/2024 imagi ng/di agnos tic resul t No observ ation record ed. [facility] [address], [place], [address], 06/18/2024 11:38:23 Result Notes None recorded. Problems Name Problem SNOMED Code Status Onset Date Resolution Date Notes Provider Name and Address Organization Details Recorded Time Bleeding from female genital tract during pregnanc y [id number] Completed office ultrasou nd on 03/17 Christos Cosby MD [address], [place], [address], [place] [facility] 3 16:11:13 Obesity 620936644 Completed ante 34wks Cleo galaviz, [facility] 4 16:18:02 Advanced maternal age 966753996 Completed Cleo galaviz, [facility] 4 16:18:02 Anemia 529674273 Completed slo fe daily Addisongary Linnea galaviz, [facility] 4 16:18:02 Impaired glucose toleranc e in pregnanc y 694801076 Completed 1hr gtt elevated - 3hr gtt Christos Cosby MD [address], [place], [address], [facility] 4 18:24:53 Abnormal cervical Papanico laou smear 576611614 Active 2023 3 lgsil 05/20/20 15 neg pap hpv high risk 5 neg pap hpv high risk 4 ascus hpv high risk Aislinn galaviz, [facility] 4 20:50:47 Problem Notes None recorded. Procedures Surgical History Date Name Laterality Status Provider Name and Address Organization Details Recorded Time 11/23/19 24 TOTAL HYSTERECTOMY, LAPAROSCOPIC, WITH BILATERAL SALPINGO-OOPHO RECTOMY (SURG) completed [facility] 11/23/2023 13:29:35 11/23/19 24 TOTAL HYSTERECTOMY, LAPAROSCOPIC, WITH BILATERAL SALPINGO-OOPHO RECTOMY (SURG) completed [facility] 11/23/2023 13:29:23 08/15/19 24 section completed Aislinn Dodson [facility] 09/15/2023 09:45:48 02/29/20 23 Colposcopy completed Christos Cosby MD [address], [place], [address], [facility] 02/28/2023 12:10:29 02/24/20 23 Colposcopy completed Aislinn Dodson [facility] 08/24/2023 20:55:01 02/24/20 23 Colposcopy completed Aislinn Dodson [facility] 08/24/2023 20:55:45 01/21/20 23 Date of Last Pap Smear completed Aislinn Dodson [facility] 08/24/2023 20:53:57 06/11/20 14 Colposcopy completed Aislinn Dodson [facility] 08/24/2023 20:52:58 07/04/19 05 repair of cleft lip completed Aislinngabriel Dodson [facility] 08/24/2023 20:52:42 07/04/18 84 repair of cleft lip completed Aislinngabriel Dodson [facility] 08/24/2023 20:52:36 Imaging Results Imaging Date Name Status LastModified by Organization Details LastModified Time 09/29/2023 US, pelvis completed [email or web address] [facility] [address], [place], [address], 09/29/2023 13:20:01 09/29/2023 [email or web address] [address], [place], [address], 09/29/2023 13:19:53 09/29/2023 US, pelvis completed [email or web address] [address], [place], [address], 09/29/2023 22:43:02 06/18/2024 imaging/diagnost ic result completed [facility] [address] [place], [address], 06/18/2024 11:38:23 Procedure Notes None recorded. Medical Equipment None Reported. Allergies Allergen ID Allergen Name Allergen Category Reaction Reaction Severity Criticality Documentation Date Start Date Code Code System Note Provider Name and Address Organization Details Recorded Time 33809 Substance with sulfonami de structure and antibacte rial mechanism of action (substanc e) medicatio n rash swelling Not available Not available Not available 06/20/2020 47404 8003 SNOMED Jeanne Lexi galaviz [facility] 3 13:02:23 Medications Name Sig Start Date Stop Date Status Note LastModified by Organization Details LastModified Time terconazo le 0.8 % vaginal cream Insert 1 applicat orful every day by vaginal route at bedtime for 3 days. 02/17 completed Not Available Not Available Not Available phentermi ne 15 mg capsule TAKE 1 CAPSULE BY MOUTH DAILY 2 HOURS AFTER BREAKFAS T active Not Available Not Available No t Available Diflucan 150 mg tablet take 1 tablet by oral route once 05/20 completed Prescrib ed Elsewher e: No Locat ion: [facility] M odify By: rosana aranda DateTime : 12/18/19 15 09:30:43 AM Not Available Not Available Not Available topiramat e 25 mg tablet TAKE 1 TABLET BY MOUTH DAILY active Not Available Not Available No t Available oxycodone -acetamin ophen 5 mg-325 mg tablet TAKE 1 TABLET BY MOUTH EVERY 4 HOURS NEEDED FOR PAIN active Not Available Not Available No t Available alprazola m 0.25 mg tablet TAKE 1 TABLET BY MOUTH TWICE DAILY NEEDED FOR ANXIETY 01/20 completed Not Available Not Available Not Available Metrogel Vaginal 0.75 % (37.5 mg/5 gram) insert 1 applicat orful by vaginal route every day at bedtime 12/11 completed Prescrib ed Elsewher e: No Locat ion: [facility] M odify By: lencho hernandez DateTime : 05/15/20 14 01:17:03 PM Not Available Not Available Not Available estradiol 1 mg tablet TAKE 1 TABLET BY MOUTH EVERY DAY active Not Available Not Available No t Available topiramat e 50 mg tablet TAKE 1 TABLET BY MOUTH DAILY 01/20 completed Not Available Not Available Not Available Tylenol 09/14 completed Not Available Not Available Not Available Shantell 0.35 mg tablet TAKE 1 TABLET BY MOUTH EVERY DAY active Not Available Not Available No t Available Vitals Date Recorded Body height Body mass index (BMI) Body weight Systolic blood pressure Diastolic blood pressure Provider Name and Address Organization Details Last Updated DateTime 09/15/2023 157.48 cm 46.1 kg/m2 433415.2 8 g 113 mm[Hg] 73 mm[Hg] Aislinn Dodson [facility] 4 09:43:51 Date Recorded Body height Body mass index (BMI) Body weight Systolic blood pressure Diastolic blood pressure Provider Name and Address Organization Details Last Updated DateTime 09/29/2023 157.48 cm 45.2 kg/m2 521271.3 2 g 125 mm[Hg] 77 mm[Hg] Ammy Michael [facility] 4 12:09:27 Date Recorded Body height Body mass index (BMI) Body weight Systolic blood pressure Diastolic blood pressure Provider Name and Address Organization Details Last Updated DateTime 11/16/2023 157.48 cm 44.4 kg/m2 954467.9 5 g 122 mm[Hg] 73 mm[Hg] Fatmata Yepez [facility] 4 17:02:21 Date Recorded Body height Body mass index (BMI) Body weight Systolic blood pressure Diastolic blood pressure Provider Name and Address Organization Details Last Updated DateTime 11/30/2023 157.48 cm 43.7 kg/m2 172847.5 8 g 119 mm[Hg] 77 mm[Hg] [facility] 14:04:54 Social History Question Answer Notes LastModified by Organizat ion Details LastModified Time Tobacco Smoking Status Never Smoker Izzy Godinez [facility] 03/17/2023 09:26:41 Do You Have An Advance Directive? Yes Information n ot available 01/20/2023 What Is Your Level Of Alcohol Consumption? Occasional Information not available 01/20/2023 How Many Years Have You Consumed Alcohol? 0 Information not available 01/20/2023 Are You Blind Or Do You Have Difficulty Seeing? No Information n ot available 01/20/2023 What Is Your Level Of Caffeine Consumption? Moderate Information not available 01/20/2023 How Much Tobacco Do You Chew? None Information not available 01/20/2023 In The 14 Days Before Symptom Onset, Have You Had Close Contact With A Laboratory-confirm ed COVID-19 While That Case Was Ill? No Information n ot available 01/20/2023 In The 14 Days Before Symptom Onset, Have You Had Close Contact With A Person Who Is Under Investigation For COVID-19 While That Person Was Ill? No Information not available 01/20/2023 Have You Been To An Area Known To Be High Risk For COVID-19? No Information not available 01/20/2023 Are You Deaf Or Do You Have Serious Difficulty Hearing? No Information not available 01/20/2023 What Type Of Diet Are You Following? REGULAR Information n ot available 01/20/2023 What Is The Highest Grade Or Level Of School You Have Completed Or The Highest Degree You Have Received? 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 No Information not available 01/20/2023 Do You Use Protection During Sex? No Information not available 01/20/2023 Do You Use Your Seat Belt Or Car Seat Routinely? Yes Information not available 01/20/2023 Do You Have Smoke And Carbon Monoxide Detectors In Your Home? Yes Information not available 01/20/2023 How Much Tobacco Do You Smoke? No Information not available 01/20/2023 Do You Feel Stressed (tense, Restless, Nervous, Or Anxious, Or Unable To Sleep At Night)? [id number] Information not available 01/20/2023 Do You Use Any Illicit Or Recreational Drugs? No Information not available 01/20/2023 Do You Use Sunscreen Routinely? No Information not available 01/20/2023 How Many Years Have You Smoked Tobacco? 0 Information not available 01/20/2023 Have You Used IV Drugs? No Information not available 01/20/2023 Sex: Unknown Functional Status Question Answer Note LastModified by Organizat ion Details LastModified Time Do you have difficulty walking or climbing stairs? No [email or web address] Information not available 08/24/2023 Are you able to walk? YESWOREST Information not available 01/20/2023 Are you able to care for yourself? Yes [email or web address] Information not available 08/24/2023 Do you have difficulty dressing or bathing? No [email or web address] Information not available 08/24/2023 What is your exercise level? Occasional Information not available 01/20/2023 Mental Status None recorded. Family History Relationship Description Onset Age of this Age Resolved Age Notes LastModified by Organization Details LastModified Time Paternal Grandmother Malignant tumor of lung Not available 2022 13:02:09 Mother Malignant tumor of breast Not available 2022 13:02:09 Mother Malignant tumor of lung Not available 2022 13:02:09 Mother Hypertensive disorder Not available 2022 13:02:09 Maternal Grandmother Malignant tumor of lung Not available 2022 13:02:09 Paternal Grandfather Malignant tumor of lung Not available 2022 13:02:09 Paternal Grandfather Malignant neoplasm of skin [email or web address] Not available 08/24 20:52:07 Father Malignant tumor of lung Not available 2022 13:02:09 Maternal Aunt Cyst of ovary [email or web address] Not available 08/24 20:51:29 Maternal Aunt Malignant tumor of ovary Not available 08/24 20:51:37 Medical History Condition Response Other Y Blood Transfusion N Dermatologic Disorders N Gestational Diabetes N Anxiety Disorder N Autoimmune disease N Arthritis N Polyps N Infertility N Acid Reflux (GERD) N Cancer N Varicosities N Stroke N Neurologic/Epilepsy N Fibromyalgia N Headaches N Kidney Disease N Heart Problems N Kidney or Bladder Problems N Eating Disorder N Art (IVF or FET) N Hepatitis/Liver Disease N No Past Medical History N Urinary Tract Infection N Asthma N Trauma/Violence N Thrombophilias N Allergies (Food, seasonal, environmental ) N Breast Cancer N Drug/Latex Allergies/Reactions Y Lung Disease N Defects or Inherited Disease N Breast Problem N Hematologic disorders N Anesthesia Complications N History of STI Y Deep Vein Thrombosis N Polycystic ovary syndrome N History of abnormal pap Y Endometriosis N High Cholesterol N Thyroid Problems N GI Problems N Anemia Y Psychiatric Illness N Ovarian Cancer N Diabetes N Pulmonary (TB, Asthma) N Eczema N Abuse/Domestic Violence N Depression/ depression N Heart Disease N Pre-Eclampsia N Hypertension N Osteoporosis N Gynecological History Statement/Question Response Abnormal Pap Yes Date of Last Mammogram Flow Moderate On BCP's at Conception? N N Was last menstrual period normal Y STIs/STDs Y Colposcopy 02/23/2023 Duration of Flow (days) 5 Current Control Method BCPs Age at First Child 19 Are cycles usually normal Y Sexually Active? Y N/A Menses Monthly N Date of DEXA bone scan Age of first menstrual cycle 14 Date of Last Pap Smear 01/20/2023 Sexual Problems? N LMP Definite N Obstetrics History GPAL:G 4 P 3 0 1 3 Type Value Full Term 3 Spontaneous 1 Living 3 Total 4 Past Encounters Encounter ID Performer Location Encounter Start Date Encounter Closed Date Diagnosis/Indication Diagnosis SNOMED-CT Code Diagnosis ICD10 Code [id number] Gem Waite [facility] [address],[place] [address] 01/20/2023 11:33:28 01/20/2023 13:50:32 Uncertain viability of 925209459 O36.80X0 Z3A.08 [id number] Christos Cosby MD [facility] [address],[place] [address] 01/20/2023 11:49:54 01/21/2023 10:27:46 Amenorrhea 51499877 N91.2 [id number] Gem Waite [facility] [address],[place] [address] 02/17/2023 11:52:24 02/17/2023 12:54:16 screening 512199552 Z36.82 [id number] Christos Cosby MD [facility] [address],[place] [address] 02/17/2023 11:52:38 02/18/2023 10:45:12 Routine care 232031940 Z34.81 [id number] Christos Cosby MD [facility] [address],[place] [address] 02/28/2023 09:24:36 02/28/2023 12:34:45 Abnormal cervical Papanicolaou smear 520959715 R87.619 [id number] Christos Cosby MD [facility] [address],[place] [address] 03/17/2023 09:26:19 03/17/2023 17:15:31 Routine care 769241627 Z34.81 [id number] Gem Fruitland [facility] [address],[place] [address] 03/17/2023 10:17:06 03/17/2023 15:35:02 Spotting per vagina in 349678145 Z3A.16 [id number] [facility] [address],[place] [address] 04/14/2023 09:25:39 04/14/2023 10:48:07 screening for malformation 585657001 Z36.3 Z3A.20 [id number] Christos Cosby MD [facility] [address],[place] [address] 04/14/2023 09:25:56 04/14/2023 11:23:21 Routine care 913403902 Z34.81 [id number] [facility] [address],[place] [address] 05/12/2023 14:50:58 05/12/2023 15:42:54 screening 752863133 Z36.2 Z3A.24 [id number] Christos Cosby MD [facility] [address],[place] [address] 05/12/2023 14:51:18 05/12/2023 16:44:04 Routine care 330472031 Z34.81 [id number] MD Hermelinda Narvaez [address],[place] [address] 06/09/2023 14:58:04 06/09/2023 15:27:03 Routine care 288428469 Z34.81 [id number] Christos Cosby MD [facility] [address],[place] [address] 06/23/2023 09:11:03 06/23/2023 11:24:10 Routine care 325926672 Z34.81 [id number] [facility] [address],[place] [address] 07/07/2023 16:48:22 07/07/2023 17:21:36 Maternal obesity complicating , childbirth and the puerperium, antepartum 1923707881 07 O99.213 O09.523 Z3A.32 [id number] Christos Cosby MD [facility] [address],[place] [address] 07/07/2023 16:52:52 07/08/2023 08:00:37 Routine care 864588897 Z34.81 [id number] [facility] [address],[place] [address] 07/21/2023 09:26:26 07/21/2023 10:37:23 Maternal obesity complicating , childbirth and the puerperium, antepartum 3204608075 07 O99.213 O09.529 Z3A.34 [id number] [facility] [address],[place] [address] 07/21/2023 09:26:58 07/21/2023 10:06:19 Maternal obesity complicating , childbirth and the puerperium, antepartum 0430228546 07 O99.213 O09.529 Z3A.34 [id number] [facility] [address],[place] [address] 07/28/2023 09:07:27 07/28/2023 09:51:34 Maternal obesity complicating , childbirth and the puerperium, antepartum 3618688254 07 O99.213 O09.523 Z3A.35 [id number] [facility] [address],[place] [address] 07/28/2023 09:08:06 07/28/2023 10:24:21 Maternal obesity complicating , childbirth and the puerperium, antepartum 7935438933 07 O99.213 O09.523 Z3A.32 [id number] Christos Cosby MD [facility] [address],[place] [address] 07/28/2023 10:06:52 07/28/2023 10:42:50 Routine care 161946540 Z34.81 [id number] [facility] [address],[place] [address] 08/04/2023 09:09:41 08/04/2023 10:05:34 Maternal obesity complicating , childbirth and the puerperium, antepartum 5763928121 07 O99.213 O09.523 Z3A.36 [id number] Jane Santa [facility] [address],[place] [address] 08/04/2023 09:10:16 08/04/2023 12:49:47 Maternal obesity complicating , childbirth and the puerperium, antepartum 1345642247 07 O99.213 O09.523 Z3A.36 [id number] Christos Cosby MD [facility] [address],[place] [address] 08/04/2023 09:10:42 08/04/2023 12:02:22 Routine care 112892905 Z34.81 [id number] Gracie Olivera [facility] [address],[place] [address] 08/11/2023 09:04:57 08/11/2023 09:50:05 Maternal obesity complicating , childbirth and the puerperium, antepartum 1382743914 07 O99.213 O09.523 Z3A.37 [id number] Kristan Kearney [facility] [address],[place] [address] 08/11/2023 09:06:14 08/11/2023 11:12:58 Maternal obesity complicating , childbirth and the puerperium, antepartum 9915424874 07 O99.213 O09.523 Z3A.37 [id number] Christos Cosby MD [facility] [address],[place] [address] 08/11/2023 09:06:28 08/11/2023 11:28:11 Routine care 429426536 Z34.81 [id number] Christos Cosby MD [facility] [address],[place] [address] 08/22/2023 11:14:36 08/22/2023 12:15:32 Postoperative care 172157616 Z48.89 [id number] Aislinn Ddoson [facility] [address],[place] [address] 09/15/2023 09:27:08 09/15/2023 10:19:49 care 421176248 Z39.2 [id number] [facility] [address],[place] [address] 09/29/2023 11:23:57 09/29/2023 11:59:36 Abnormal uterine bleeding 9209705643 9100 N93.9 [id number] Christos Cosby MD [facility] [address],[place] [address] 09/29/2023 11:24:16 09/29/2023 15:17:13 Menorrhagia 109227337 N92.0 Family his tory of malignant neoplasm of ovary in first degree relative 6323503566 106 Z80.41 [id number] Christos Cosby MD [facility] [address],[place] [address] 11/16/2023 16:54:26 11/16/2023 17:26:19 Menorrhagia 293669773 N92.0 [id number] Christos Cosby MD [facility] [address],[place] [address] 11/30/2023 13:57:09 12/01/2023 09:12:48 Postoperative care 453056231 Z48.89 Health Concerns Section Related Observation LastModified by Organization Detai ls LastModified Time None Recorded Concern Status LastModified by Organization Details LastModified Time None Recorded Advance Directives Directive Y: Payers Encounter Date Sequence Insurance Name Policy Number Policy Reynoso Covered Member ID Reynoso Member ID Guarantor Name 09/15/2023 2 [place] [facility] Aislinn Trumpeter [id number] Aislinn Trumpeter 09/15/2023 1 [employer] [id number] Carlos Bar Trumpeter [id number] Aislinn Trumpeter 09/29/2023 2 [place] [facility] Aislinn Trumpeter [id number] Aislinn Trumpeter 09/29/2023 1 UMR [id number] Carlos C Trumpeter [id number] Aislinn Trumpeter 09/29/2023 2 [place] [facility] Aislinn Trumpeter [id number] Aislinn Trumpeter 09/29/2023 1 UMR [id number] Carlos C Trumpeter [id number] Aislinn Trumpeter 11/16/2023 2 [place] [facility] Aislinn Trumpeter [id number] Aislinn Trumpeter 11/16/2023 1 UMR [id number] Carlos C Trumpeter [id number] Aislinn Trumpeter 11/30/2023 1 UMR [id number] Carlos C Trumpeter [id number] Aislinn Trumpeter Notes Date Note Type Note Provider Name and Address Organization Details Recorded Time 09/15/2023 text/html this patient is a 38-year-old female who presents for care. She had a approximately 4 weeks ago. Her baby is doing well. Baby is bottle feeding. She is doing well. Her mood is reasonably good. She is still lightly bleeding. She is going to start the progesterone only pill for contraception. She has not had intercourse. She will return shortly for consultation on heavy bleeding at the time of her menses and abnormal Pap smear. She is considering hysterectomy. To have ultrasound. Aislinn galaviz [facility] 09/15/2023 19:41:29 09/29/2023 text/html This patient is a 38-year-old female who presents for follow-up on menorrhagia and pelvic ultrasound family history of gynecologic cancer. Patient has a profound history of gynecologic cancer. She has severe menorrhagia. She has bleeding that gets on her bedding and clothing. She states that it affects her quality of life and activities of living. Her ultrasound is normal. We discussed treatment options in detail. She would like definitive surgical treatment. We talked about hysterectomy in detail. We agreed to proceed with total laparoscopic hysterectomy and bilateral Salpingo-oophorecto my. We spent over 40 minutes [id number]. We made a decision to perform surgery. She was thoroughly counseled on all aspects of menorrhagia, treatment, hysterectomy. Christos Cosby MD [address], [place], [address], [facility] 09/29/2023 15:16:12 11/16/2023 text/html Patient is a 38-year-old female with severe menorrhagia and history, family history of female genital cancer. We have agreed to perform total laparoscopic hysterectomy bilateral salpingo-oophorecto my. The patient understands the procedure. The procedure was described to the patient in great detail. the patient also understands the risks. The risks were also explained in detail. She understands that injuries May occur during surgery. She understands these injuries can result in hospitalization, more surgery, and severe illness. She understands there is risk of hemorrhage and infection. Christos Cosby MD [address], [place], [address], [facility] 11/16/2023 17:24:12 11/30/2023 text/html female Patient presents for postop follow-up. She is 1 week postop from a total laparoscopic hysterectomy bilateral salpingectomy. She has no complaints. Her incisions are clean dry and intact. She is recovering normally. She will follow-up as needed. Christos Cosby MD [address], [place], [address], [facility] 11/30/2023 18:20:41 OBGyn Episode Ob Episode Information Episode Created Date Number of Fetuses Patient Bloodtype Patient rh Status Prepregnancy Weight lbs Domestic Partner Domestic Partner Phone Father Name Perinatal Coordinator Status 01/21/20 23 1 CLOSED Fetus Data First Name Last Name Admitted to NICU Weight (g) Sex Living Outcome Pediatric Complications Fetus ID Race Codes Race Delivery Type , Spontane ous Mehreen Calculation MEHREEN Calculation Method Initial Mehreen Date Initial Exam Date Initial Exam Provider Initial Ultrasound Date Last Menstrual Period Date Ultra Sound Weeks Gestation Conception by IVF Embryo Age at Transfer Date of Transfer 0 Eighteen To Twenty Week Mehreen Update Ultra Sound Date Fundal Height At Umbil Quickening Date Ultra Sound Latest Weeks Gestation Final Mehreen Confirmed By Final Meheren Confirmed Date Final Mehreen Date Ultra Sound Latest Days Gestation 0 0 Menstrual History Last Menstrual Date Menses Monthly On Bcp Conception Prior Menses Frequency Hcg Plus Date Menarche Onset Age Delivery Information Delivery Date Delivery Type Labor Anesthesia Weeks Gestation Incision Type Labor Labor Length Hrs Delivered By Post Complications Tubal Sterilization Discharge Date Comments 0 Discharge Information Feeding Method Contraceptive Method Maternal HG B and HCT Levels Ob Episode Information Episode Created Date Number of Fetuses Patient Bloodtype Patient rh Status Prepregnancy Weight lbs Domestic Partner Domestic Partner Phone Father Name Perinatal Coordinator Status 02/18/20 23 1 O Positive 271 CLOSED Fetus Data First Name Last Name Admitted to NICU Weight (g) Sex Living Outcome Pediatric Complications Fetus ID Race Codes Race Delivery Type 3373.59 05 M true Full Term head malpresentatio n, nonreassuring heart tones, [id number] Primary Problems Problem Notes QUESTIONABLE SHOULDER DYSTOC IA IN 1ST - 8 LB, SUBSEQUENT BABY 8 LB 10 OZ WITH NO COMPLICATIONS. possible bicornuate uterus Problem Name Start Date End Date Resolution Snomed Code Not e Advanced maternal age [id number] Anemia [id number] slo fe jose g ly Obesity [id number] ante 34wks Mehreen Calculation MEHREEN Calculation Method Initial Mehreen Date Initial Exam Date Initial Exam Provider Initial Ultrasound Date Last Menstrual Period Date Ultra Sound Weeks Gestation Conception by IVF Embryo Age at Transfer Date of Transfer 09/03/19 23 02/18/20 22 01/20/2023 11/27/2022 8 Eighteen To Twenty Week Mehreen Update Ultra Sound Date Fundal Height At Umbil Quickening Date Ultra Sound Latest Weeks Gestation Final Mehreen Confirmed By Final Mehreen Confirmed Date Final Mehreen Date Ultra Sound Latest Days Gestation 0 [email or web address] 04/14/2023 08/28/19 24 0 Pre- Flowsheet Flowsheet Date 02/17/2023 Lima Score Blood Edema Fundus Height Fundus Units Glucose Ketones Leukocytes Nitrite Labor Signs Protein Cervic Dilation Cervic Effacement Cervic Station 11 Type Weight in lbs Pre/Post Dialysis Refused Weight 266.559798227387 BP Diastolic BP Location Tested BP Systolic BP Type 72 R arm 105 sitting Fetus Heart Rate Present A 145 Fetus Movement Comments this patient is a 37-year-ol d 4 para 2012 weeks and 5 days gestation. She has a history large for gestational age babies. She did deliver an 8 lb 10 oz baby vaginally. Her 8 lb baby did have some trouble with the shoulders. It is unclear if it is shoulder dystocia. A subsequent larger baby was delivered vaginally without complications. Reviewed care in detail. She will begin routine care. Flowsheet Date 02/28/2023 Lima Score Blood Edema Fundus Height Fundus Units Glucose Ketones Leukocytes Nitrite Labor Signs Protein Cervic Dilation Cervic Effacement Cervic Station Type Weight in lbs Pre/Post Dialysis Refused Weight 265.690510006975 BP Diastolic BP Location Tested BP Systolic BP Type 74 R arm 111 sitting Fetus Heart Rate Present Fetus Movement Comments Flowsheet Date 03/17/2023 Lima Score Blood Edema Fundus Height Fundus Units Glucose Ketones Leukocytes Nitrite Labor Signs Protein Cervic Dilation Cervic Effacement Cervic Station 15 none trace Type Weight in lbs Pre/Post Dialysis Refused Weight 263.250931013797 BP Diastolic BP Location Tested BP Systolic BP Type 73 L arm 115 sitting Fetus Heart Rate Present A 145 Fetus Movement Comments spotting, visit to ED, brannon l bedside ultrasound in the ED, continues to bleed, to have ultrasound a, Patient was examined, cervix appears normal, ultrasound was performed today, no evidence of any bleeding given precautions, will observe. Flowsheet Date 03/17/2023 Lima Score Blood Edema Fundus Height Fundus Units Glucose Ketones Leukocytes Nitrite Labor Signs Protein Cervic Dilation Cervic Effacement Cervic Station Type Weight in lbs Pre/Post Dialysis Refused BP Diastolic BP Location Tested BP Systolic BP Type Fetus Heart Rate Present Fetus Movement Comments Flowsheet Date 04/14/2023 Lima Score Blood Edema Fundus Height Fundus Units Glucose Ketones Leukocytes Nitrite Labor Signs Protein Cervic Dilation Cervic Effacement Cervic Station Type Weight in lbs Pre/Post Dialysis Refused BP Diastolic BP Location Tested BP Systolic BP Type Fetus Heart Rate Present Fetus Movement Comments Flowsheet Date 04/14/2023 Lima Score Blood Edema Fundus Height Fundus Units Glucose Ketones Leukocytes Nitrite Labor Signs Protein Cervic Dilation Cervic Effacement Cervic Station none trace Type Weight in lbs Pre/Post Dialysis Refused Weight 264.282427066994 BP Diastolic BP Location Tested BP Systolic BP Type 75 R arm 115 sitting Fetus Heart Rate Present A 145 Fetus Movement A Yes Comments incomplete anatomy scan, gre at vessel views incomplete, repeat in 4 weeks, no complaints, no problems Flowsheet Date 05/12/2023 Lima Score Blood Edema Fundus Height Fundus Units Glucose Ketones Leukocytes Nitrite Labor Signs Protein Cervic Dilation Cervic Effacement Cervic Station Type Weight in lbs Pre/Post Dialysis Refused BP Diastolic BP Location Tested BP Systolic BP Type Fetus Heart Rate Present Fetus Movement Comments Flowsheet Date 05/12/2023 Lima Score Blood Edema Fundus Height Fundus Units Glucose Ketones Leukocytes Nitrite Labor Signs Protein Cervic Dilation Cervic Effacement Cervic Station Type Weight in lbs Pre/Post Dialysis Refused Weight 267.662032339647 BP Diastolic BP Location Tested BP Systolic BP Type 70 R arm 131 sitting Fetus Heart Rate Present Fetus Movement Comments Anatomy scan completed today , no problems, no complaints Flowsheet Date 06/09/2023 Lima Score Blood Edema Fundus Height Fundus Units Glucose Ketones Leukocytes Nitrite Labor Signs Protein Cervic Dilation Cervic Effacement Cervic Station Type Weight in lbs Pre/Post Dialysis Refused Weight 267.077298376921 BP Diastolic BP Location Tested BP Systolic BP Type 74 R arm 112 sitting Fetus Heart Rate Present A 145 Fetus Movement A Yes Comments no complaints, no problems, routine care, needs growth ultrasound soon, diabetes testing today. Start NSTs at 34 weeks Flowsheet Date 06/23/2023 Lima Score Blood Edema Fundus Height Fundus Units Glucose Ketones Leukocytes Nitrite Labor Signs Protein Cervic Dilation Cervic Effacement Cervic Station Type Weight in lbs Pre/Post Dialysis Refused Weight 266.230982980070 BP Diastolic BP Location Tested BP Systolic BP Type 75 R arm 119 sitting Fetus Heart Rate Present Fetus Movement A Yes Comments 3 hour glucose challenge sixto t today, just failed 1 hour GTT, good movement, no complaints, growth ultrasound at next visit Flowsheet Date 07/07/2023 Lima Score Blood Edema Fundus Height Fundus Units Glucose Ketones Leukocytes Nitrite Labor Signs Protein Cervic Dilation Cervic Effacement Cervic Station Type Weight in lbs Pre/Post Dialysis Refused BP Diastolic BP Location Tested BP Systolic BP Type Fetus Heart Rate Present Fetus Movement Comments Flowsheet Date 07/07/2023 Lima Score Blood Edema Fundus Height Fundus Units Glucose Ketones Leukocytes Nitrite Labor Signs Protein Cervic Dilation Cervic Effacement Cervic Station Type Weight in lbs Pre/Post Dialysis Refused Weight 267.311564959655 BP Diastolic BP Location Tested BP Systolic BP Type 73 R arm 126 sitting Fetus Heart Rate Present A 153 Fetus Movement A Yes Comments no complaints, no problems, routine care, good growth ultrasound today, starting testing in 2 weeks Flowsheet Date 07/21/2023 Lima Score Blood Edema Fundus Height Fundus Units Glucose Ketones Leukocytes Nitrite Labor Signs Protein Cervic Dilation Cervic Effacement Cervic Station Type Weight in lbs Pre/Post Dialysis Refused BP Diastolic BP Location Tested BP Systolic BP Type Fetus Heart Rate Present Fetus Movement Comments Flowsheet Date 07/21/2023 Lima Score Blood Edema Fundus Height Fundus Units Glucose Ketones Leukocytes Nitrite Labor Signs Protein Cervic Dilation Cervic Effacement Cervic Station Type Weight in lbs Pre/Post Dialysis Refused BP Diastolic BP Location Tested BP Systolic BP Type Fetus Heart Rate Present Fetus Movement Comments Flowsheet Date 07/28/2023 Lima Score Blood Edema Fundus Height Fundus Units Glucose Ketones Leukocytes Nitrite Labor Signs Protein Cervic Dilation Cervic Effacement Cervic Station Type Weight in lbs Pre/Post Dialysis Refused BP Diastolic BP Location Tested BP Systolic BP Type Fetus Heart Rate Present Fetus Movement Comments Flowsheet Date 07/28/2023 Lima Score Blood Edema Fundus Height Fundus Units Glucose Ketones Leukocytes Nitrite Labor Signs Protein Cervic Dilation Cervic Effacement Cervic Station Type Weight in lbs Pre/Post Dialysis Refused BP Diastolic BP Location Tested BP Systolic BP Type Fetus Heart Rate Present Fetus Movement Comments Flowsheet Date 07/28/2023 Lima Score Blood Edema Fundus Height Fundus Units Glucose Ketones Leukocytes Nitrite Labor Signs Protein Cervic Dilation Cervic Effacement Cervic Station 35 Type Weight in lbs Pre/Post Dialysis Refused Weight 267.389503307436 BP Diastolic BP Location Tested BP Systolic BP Type 75 R arm 127 sitting Fetus Heart Rate Present A 145 Fetus Movement Comments No complaints, no problems, routine care, reassuring testing Flowsheet Date 08/04/2023 Lima Score Blood Edema Fundus Height Fundus Units Glucose Ketones Leukocytes Nitrite Labor Signs Protein Cervic Dilation Cervic Effacement Cervic Station Type Weight in lbs Pre/Post Dialysis Refused BP Diastolic BP Location Tested BP Systolic BP Type Fetus Heart Rate Present Fetus Movement Comments Flowsheet Date 08/04/2023 Lima Score Blood Edema Fundus Height Fundus Units Glucose Ketones Leukocytes Nitrite Labor Signs Protein Cervic Dilation Cervic Effacement Cervic Station Type Weight in lbs Pre/Post Dialysis Refused BP Diastolic BP Location Tested BP Systolic BP Type Fetus Heart Rate Present Fetus Movement Comments Flowsheet Date 08/04/2023 Lima Score Blood Edema Fundus Height Fundus Units Glucose Ketones Leukocytes Nitrite Labor Signs Protein Cervic Dilation Cervic Effacement Cervic Station 1cm Type Weight in lbs Pre/Post Dialysis Refused Weight 271.950780497458 BP Diastolic BP Location Tested BP Systolic BP Type 81 L arm 134 sitting Fetus Heart Rate Present A 144 Fetus Movement Comments No complaints, no problems, routine care, reassuring testing, reasonable weight Flowsheet Date 08/11/2023 Lima Score Blood Edema Fundus Height Fundus Units Glucose Ketones Leukocytes Nitrite Labor Signs Protein Cervic Dilation Cervic Effacement Cervic Station Type Weight in lbs Pre/Post Dialysis Refused BP Diastolic BP Location Tested BP Systolic BP Type Fetus Heart Rate Present Fetus Movement Comments Flowsheet Date 08/11/2023 Lima Score Blood Edema Fundus Height Fundus Units Glucose Ketones Leukocytes Nitrite Labor Signs Protein Cervic Dilation Cervic Effacement Cervic Station Type Weight in lbs Pre/Post Dialysis Refused BP Diastolic BP Location Tested BP Systolic BP Type Fetus Heart Rate Present Fetus Movement Comments Flowsheet Date 08/11/2023 Lima Score Blood Edema Fundus Height Fundus Units Glucose Ketones Leukocytes Nitrite Labor Signs Protein Cervic Dilation Cervic Effacement Cervic Station Type Weight in lbs Pre/Post Dialysis Refused Weight 271.979275599486 BP Diastolic BP Location Tested BP Systolic BP Type 84 L arm 130 sitting Fetus Heart Rate Present A 155 Fetus Movement Comments no complaints, no problems, routine care Flowsheet Date 08/22/2023 Lima Score Blood Edema Fundus Height Fundus Units Glucose Ketones Leukocytes Nitrite Labor Signs Protein Cervic Dilation Cervic Effacement Cervic Station Type Weight in lbs Pre/Post Dialysis Refused Weight 266.560672967289 BP Diastolic BP Location Tested BP Systolic BP Type 81 127 Fetus Heart Rate Present Fetus Movement Comments Menstrual History Last Menstrual Date Menses Monthly On Bcp Conception Prior Menses Frequency Hcg Plus Date Menarche Onset Age 0511/27/2022 Genetic Screening And Infection History Question Response Note Mental Retardation/Autism false Patient's Age Will Be 35 Years Or Older At Estim ated Date of Delivery false Thalassemia (English, Urdu, Mediterranean, Or Background): MCV < 80 false Neural Tube Defect (Meningomyelocele, Spina Bifi da, Or Anencephaly) false Congenital Heart Defect false Down Syndrome false Jacob-Sachs (eg, Oriental Orthodox, Cajun, Turkmen-Sipsey) f alse Oksana Disease false Sickle Cell Disease Or Trait () false Hemophilia Or Other Blood Disorders false Muscular Dystrophy false Cystic Fibrosis false Charlotte's Chorea false Intellectual Disability/Autism false If Yes, Was Person Tested For Fragile X? false Other Inherited Genetic Or Chromosomal Disorder false Maternal Metabolic Disorder (eg, Type 1 Diabetes , PKU) false Patient Or Baby's Father Had A Child With Defects Not Listed Above false Recurrent Loss, Or A Stillbirth false Medications (including Suppl ements, Vitamins, Herbs, OTC Drugs), Illicit/Recreational Drugs, Alcohol false If Yes, Agent(s) And Strength/Dosage false Any Other Genetic History false Live With Someone With TB Or Exposed To TB false Patient Or Partner Has History Of Genital Herpes false Rash Or Viral Illness Since Last Menstrual Perio d false History Of STD, Gonorrhea, Chlamydia, HPV, Syphi lis false Other Infection History false History of HIV false History of Hepatitis false Prior GBS-infected child false Hemoglobinopathy Or Carrier false Other Structural Defect false Recent Travel History Outside of Country false Delivery Information Delivery Date Delivery Type Labor Anesthesia Weeks Gestation Incision Type Labor Labor Length Hrs Delivered By Post Complications Tubal Sterilization Discharge Date Comments 4 Eli mondragon [facility] idural 38.1 Low Transvers e Christos Campo MD Advanced maternal age ,A nemiaOberin sheldon Discharge Information Feeding Method Contraceptive Method Maternal HG B and HCT Levels Ob Episode Information Episode Created Date Number of Fetuses Patient Bloodtype Patient rh Status Prepregnancy Weight lbs Domestic Partner Domestic Partner Phone Father Name Perinatal Coordinator Status 01/21/20 23 1 CLOSED Fetus Data First Name Last Name Admitted to NICU Weight (g) Sex Living Outcome Pediatric Complications Fetus ID Race Codes Race Delivery Type 3628.73 6 M Full Term [id number] Vaginal Delivery Mehreen Calculation MEHREEN Calculation Method Initial Mehreen Date Initial Exam Date Initial Exam Provider Initial Ultrasound Date Last Menstrual Period Date Ultra Sound Weeks Gestation Conception by IVF Embryo Age at Transfer Date of Transfer 0 Eighteen To Twenty Week Mehreen Update Ultra Sound Date Fundal Height At Umbil Quickening Date Ultra Sound Latest Weeks Gestation Final Mehreen Confirmed By Final Mehreen Confirmed Date Final Mehreen Date Ultra Sound Latest Days Gestation 0 0 Menstrual History Last Menstrual Date Menses Monthly On Bcp Conception Prior Menses Frequency Hcg Plus Date Menarche Onset Age Delivery Information Delivery Date Delivery Type Labor Anesthesia Weeks Gestation Incision Type Labor Labor Length Hrs Delivered By Post Complications Tubal Sterilization Discharge Date Comments 7 40 Elizabeth shoulder dystocia Discharge Information Feeding Method Contraceptive Method Maternal HG B and HCT Levels Ob Episode Information Episode Created Date Number of Fetuses Patient Bloodtype Patient rh Status Prepregnancy Weight lbs Domestic Partner Domestic Partner Phone Father Name Perinatal Coordinator Status 01/21/20 23 1 CLOSED Fetus Data First Name Last Name Admitted to NICU Weight (g) Sex Living Outcome Pediatric Complications Fetus ID Race Codes Race Delivery Type 3912.23 1 M Full Term [id number] Vaginal Delivery Mehreen Calculation MEHREEN Calculation Method Initial Mehreen Date Initial Exam Date Initial Exam Provider Initial Ultrasound Date Last Menstrual Period Date Ultra Sound Weeks Gestation Conception by IVF Embryo Age at Transfer Date of Transfer 0 Eighteen To Twenty Week Mehreen Update Ultra Sound Date Fundal Height At Umbil Quickening Date Ultra Sound Latest Weeks Gestation Final Mehreen Confirmed By Final Mehreen Confirmed Date Final Mehreen Date Ultra Sound Latest Days Gestation 0 0 Menstrual History Last Menstrual Date Menses Monthly On Bcp Conception Prior Menses Frequency Hcg Plus Date Menarche Onset Age Delivery Information Delivery Date Delivery Type Labor Anesthesia Weeks Gestation Incision Type Labor Labor Length Hrs Delivered By Post Complications Tubal Sterilization Discharge Date Comments 7 40 Jesus Manuel Discharge Information Feeding Method Contraceptive Method Maternal HG B and HCT Levels
--- OUTSIDE RECORDS SUMMARY | 2024-06-23 20:21 | XMS_ITS | Encounter Summary ---
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
== END 2024-06-18 07:37 | disposition home or self-care (01) ==
PROVIDERS: PCP Physician Assistant Medical; Visit Provider Obstetrics & Gynecology
DX: Z12.31 Encounter for screening mammogram for malignant neoplasm of breast (principal)
CPT/HCPCS: 77063; 77067

== ENCOUNTER 2025-01-14 02:20 | Day surgery (SDC) | payer OTHER, SELFPAY ==
[2025-01-02 14:49] VITALS: BMI 43.6
--- NOTE | 2025-01-02 14:50 | PC.NURSE ---
Addendum entered by Kleber Escalante RN 01/02/25 17:09: Planned procedure time is 1200. Original Note: Report to the Outpatient Waiting Room, entrance under the green pavilion located off [facility], at time _1000_ on date _[id number]_. Planned Procedure Time: __.? Time changes happen often and if your time is changed the preop area will call you the afternoon before. - You and your visitor will be asked to self-screen and do not enter if you have any COVID symptoms. Please call surgeon if you need to reschedule. - A mask is optional within the hospital at this time. Patients may have clear liquids (water, carbonated beverages, clear teas, apple juice) until 3 hours prior to surgery with a maximum of 20 ounces. - No food from midnight until time of surgery and no smoking, or chewing tobacco (or any form of nicotine). No chewing gum, candy or mints. Take only the following medications with a SIP of water on the morning of surgery: __None DO NOT STOP ANY OF YOUR OTHER PRESCRIPTION MEDICATIONS PRIOR TO SURGERY EXCEPT THE FOLLOWING Hold all vitamins and supplements for 3 days per anesthesiologist. Medications to discontinue per physician Date to take last dose Please no make-up, nail palestinian, hairspray, perfume, deodorant, or body powder the day of surgery.? No jewelry (including any body piercings) or valuables the day of surgery, leave them at home.? Please take a shower or bath the night before, or the morning of, surgery with an antibacterial soap.? Wear comfortable, loose fitting clothing.? - Jewelry must be removed prior to entering the operating room.? Rings and piercings that are not removed may be cut off. - The hospital will not accept responsibility for valuables.? - Please leave all valuables, including medications, at home the day of surgery. If you are going home after surgery, a licensed electric pile driver operator must drive you home.? - NO public transportation without another adult if you receive anesthesia. - We recommend that an adult stay with you for 24 hours following discharge. - We also recommend that you do not drive, make important decision, drink alcoholic beverages, or take any drugs that were not prescribed by your health care provider for at least 24 hours after your discharge time. Follow any additional instructions given to you from your surgeon. Telephone instructions given to __Aislinn___and asked if any additional questions and then verbalized understanding. Patient advised to call surgeon office or pre surgery nurse liaison [phone] if any additional questions.
--- NOTE | 2025-01-08 18:50 | PM.IMHP ---
H&P: HPI History of Present Illness Date/Time: 01/08/25 18:50 Chief Complaint: POP/DEDRA Narrative: symptomatic POP/DEDRA Review of Systems Review of Systems: All systems reviewed & are unremarkable except as noted in HPI and below PMFSH Past Medical History Medical History VICKIE (obstructive sleep apnea) Obesity Surgical History Surgical History History of total hysterectomy with bilateral salpingo-oophorectomy (BSO) 11/2023 History of 08/2023 Family History Family History Sibling Heart murmur Sibling Tumor, thyroid Father Lung cancer Mother Breast cancer Lung cancer Social History Social History Social History: 10/19/24 very confident with medical forms Smoking status: Never smoker Second hand tobacco smoke exposure: No Alcohol intake: current Substance use: never Substance use type: does not use Do You Feel Safe in your Home?: Yes Lack of Transportation: No Lack of Food: Never True Current Housing: I Have Housing Concerned About Future Housing: No Difficulty Paying Gas/Electric Bills: No Difficulty Paying for Meds: No Currently Unemployed: No Education: Bachelor's Degree Difficulty w/ Childcare or Family Care: No Living arrangements: with family Occupation/Education: occupation Gender identity (if verbalized by the patient): Female Sexual Orientation (if Verbalized by the Patient): Straight or Heterosexual Spiritual care concerns: No Meds Home Medications and Allergies Home Medications ?Medication ?Instructions ?Recorded ?Confirmed ?Type topiramate 25 mg tablet (Topamax) 25 mg PO DAILY #90 tabs 08/27/24 01/02/25 Rx estradiol 1 mg tablet 1 mg PO DAILY 10/26/24 01/02/25 History phentermine 37.5 mg capsule 37.5 mg PO DAILY #30 caps 01/01/25 01/02/25 Rx Allergies Allergy/AdvReac Type Severity Reaction Status Date / Time Sulfa (Sulfonamide AdvReac Severe HIVES, Verified 01/02/25 14:37 Antibiotics) ITCHY Exam Narrative: Obese + urethral mobility mild Loss of apical support Rectocele Assessment and Plan Assessment and plan (1) DEDRA (stress urinary incontinence, female): Code(s): N39.3 - Stress incontinence (female) (male) Status: Acute (2) Rectocele: Code(s): N81.6 - Rectocele Status: Acute (3) Prolapse of vaginal vault after hysterectomy: Code(s): N99.3 - Prolapse of vaginal vault after hysterectomy Status: Acute Plan vaginal POP repair/rectocele repair, SSLF, urethral sling
[2025-01-14] VITALS (10 sets, daily range): BP systolic 106–141; BP diastolic 54–98; PULSE 47–67; RESP 12–18; TEMP 36.2–36.7; O2SAT 92–100
--- OUTSIDE RECORDS SUMMARY | 2025-01-14 02:22 | XMS_ITS | Clinical Summary ---
Author Organization [facility] Address Formerly [facility] [place] [address] Care Team Providers Care Pallet Rectifier Name Role Phone Bryanna Chavez PA-C Primary Care Provider [phone] Allergies Active Allergy Reactions Criticality Noted Date [...] 94 04/09/2020 11:56 PM CDT Temperature 36.4 C (97.5 F) 04/09/2020 11:56 PM CDT Respiratory Rate 18 04/09/2020 11:56 PM CDT Oxygen Saturation 96% 04/10/2020 2:31 AM CDT Inhaled Oxygen Concentration - - Weight 122.5 kg (270 lb) 04/09/2020 11:56 PM CDT Height 160 cm (5' 3) 04/09/2020 11:56 PM CDT Body Mass Index [...] Cancer Screening with HPV 2014 COVID-19 Vaccine (1 - 2023-2 5 season) 2024 Mammogram Screening 2024 HPV Vaccines Aged Out No longer eligi ble based on patient's age to complete this topic Meningococcal B Vaccine Aged Out No l onger eligible based on patient's age to complete this topic Meningococcal Vaccine Aged Out No kady baltazar eligible based on patient's age to complete this topic Pneumococcal Vaccine: Pediat rics (0 to 5 Years) and At-Risk Patients (6 to 49 Years) Aged Out No longer eligible b ased on patient's age to complete this topic RSV Immunizations Under 20 Months Aged Out No longer eligible based on patient's age to complete this topic Insurance * Guarantor: Aislinn RUTH Account Type Relation to Patient Date of Phone Billing Address Personal/Family Self 1985 [phone] Care Teams Pallet Rectifier Relationship Specialty Start Date End Date Bryanna Chavez PA-C PCP - General NURSE PRACTITIONER 07/27/19
--- OUTSIDE RECORDS SUMMARY | 2025-01-14 02:23 | XMS_ITS | Data Portability ---
Author Organization [facility] Address [address] [place] [address] [place] [address] Care Team Providers Care Pedicurist Name Role Phone CASE OLIVAS Primary Care Provider Assessment Encounter Date Assessment Date Assessment LastModified by Organization Details LastModified Time 08/02/2024 08/02/2024 Annual gynecological exam performed. Patient will come back in a year unless there are new symptoms. [email or web address] Not available 08/02/2024 11:11:23 Plan of Treatment Reminders Order Date Submit Date Provider Last Modified By Organization Details Last Modified Time Details Appointments None recorded. Lab None recorded. Referral None recorded. Procedures None recorded. Surgeries None recorded. Imaging US, pelvis 2023 024 [address], [address], [place], [address], 18:50:13 US, transvagina l 2023 024 [address], [address], [place], [address], 18:50:13 Medication Orders estradiol 1 mg tablet 2024 [id number], [address], [place], [id number], 11:35:38 Patient TargetsNo targets recorded. Patient InstructionsNo instructions recorded. Reason for Referral None Reported. Results Created Date Observation Date Name Description Value Unit Range Abnormal Flag Note LastModifiedBy Organization Detail LastModifiedTime 08/02/1908/02/2024 IMAGE GUIDE D PAP AND HPV REGAR DLESS image guided Pap, HPV regardless of Pap result SEE RESULT S BELOW CASE REPOR T: Cytol ogy Gynec ologi benjamin Repor t Case: [id number] Autho chastity martin Provambika luis: Urvashi Cosby MD Colle cted: 08/02 1128 Order ing Locat ion: [place] Path[facility] Recei trish: 08/03 0316 First Katey n: Christiano Sanchez, CT Rescr een: Nohemi Arias, SALAZAR Speci men: Katey luis Pap - Image d, Chente a STATE MENT OF ADEQU ACY: Satis facto ry for evalu ation ----- ----- ----- ----- ----- ----- ----- ----- ----- ----- ----- ----- ----- ----- ----- ----- ----- ---- FINAL DIAGN OSIS: Negat augustine for Intra epith elial Isabelle alegre or Leah yang ([facility]) . Lamara amador organ isms morph ologi avani consi stent with Khloe da spp. 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 COMME NT: This speci men was revie wed by a Cytot echno logis t and/o r Patho logis t (as indic ated in this repor t) after evalu ation using the Thinp rep Imagi ng Syste m. CLINI [facility] INFOR MATIO N: Menst rual Statu s: LMP (if appli cable ): Clini benjamin Histo ry/Pr eviou s Pap: Type of Neopl glory (if appli cable ): Signi fican t Clini benjamin Findi ngs: Other Histo ry: Hormo susan (if appli cable ): PAP EDUCA KALA L NOTE: The Pap Test is a scree luis test with an inher ent false negat augustine rate. Liqui d-bas ed sampl ing may decre ase, but will not elimi beverly, false negat augustine resul ts. A negat augustine resul t does not precl ude the prese nce and/o r devel opmen t of disea se, since the prese nce of abnor mal cells in the sampl e depen ds on the locat ion of the lesio n and sampl ing techn ique. Misbah nued regul ar scree luis is the best metho d of cance r preve ntion . If repor giancarlo cytol ogic findi ng do not corre late with physi benjamin and/o r histo rical findi ngs, furth er inves tigat ion is recom konstantin d, as clini avani warrnico nted. Not Available [facility] (Lab) [address], [place], [address], 08/07/2024 19:49:03 09/29/19 24 09/29/2023 US, pelvi s No observ ation record ed. [email or web address] [address], [place], [address], 09/29/2023 13:20:01 09/29/19 24 09/29/2023 US, trans vagin al No observ ation record ed. [email or web address] [facility] [address], [place], [address], 09/29/2023 13:19:53 09/29/19 24 09/29/2023 US, pelvi s No observ ation record ed. [email or web address] [address], [place], [address], 09/29/2023 22:43:02 06/18/20 24 06/18/2024 imagi ng/di agnos tic resul t No observ ation record ed. [facility] [place] [address] [place], [address], 06/18/2024 11:38:23 Result Notes None recorded. Problems Name Problem SNOMED Code Status Onset Date Resolution Date Notes Provider Name and Address Organization Details Recorded Time Bleeding from female genital tract during pregnanc y [id number] [id number] Completed office ultrasou nd on 03/17 Christos Cosby MD [address], [place], [address], [facility] 3 16:11:13 Obesity 177222191 Completed ante 34wks Cleo Yarbrough null, [facility] 4 16:18:02 Advanced maternal age 078487054 Completed Cleo Yarbrough null, [facility] 4 16:18:02 Anemia 015731490 Completed slo fe daily Cleo Becerrale null, [facility] 4 16:18:02 Impaired glucose toleranc e in pregnanc y 379169904 Completed 1hr gtt elevated - 3hr gtt Christos Cosby MD [address], [place], [address], [facility] 4 18:24:53 Abnormal cervical Papanico laou smear 657853533 Active 2023 3 lgsil 05/20/20 15 neg pap hpv high risk 5 neg pap hpv high risk 4 ascus hpv high risk Aislinn galaviz [facility] 20:50:47 Problem Notes None recorded. Procedures Surgical History Date Name Laterality Status Provider Name and Address Organization Details Recorded Time 08/02/19 25 Date of Last Pap Smear completed Ammy Michael [facility] 10/29/2024 16:19:27 06/18/20 24 Date of Last Mammogram completed Ammy Alec [facility] 08/02/2024 11:14:41 11/23/19 24 TOTAL HYSTERECTOMY, LAPAROSCOPIC, WITH BILATERAL SALPINGO-OOPHO RECTOMY (SURG) completed [facility] 11/23/2023 13:29:35 11/23/19 24 TOTAL HYSTERECTOMY, LAPAROSCOPIC, WITH BILATERAL SALPINGO-OOPHO RECTOMY (SURG) completed [facility] 11/23/2023 13:29:23 08/15/19 24 section completed Aislinn Dodson [facility] 09/15/2023 09:45:48 02/29/20 23 Colposcopy completed Christos Cosby MD [address], [place], [address], [facility] 02/28/2023 12:10:29 02/24/20 23 Colposcopy completed Aislinn Dodson [facility] 08/24/2023 20:55:01 02/24/20 23 Colposcopy completed Aislinn Dodson [facility] 08/24/2023 20:55:45 06/11/20 14 Colposcopy completed Aislinn Dodson [facility] 08/24/2023 20:52:58 07/04/19 05 repair of cleft lip completed Aislinn Dodson [facility] 08/24/2023 20:52:42 07/04/18 84 repair of cleft lip completed Aislinn Dodson [facility] 08/24/2023 20:52:36 Imaging Results None recorded. Procedure Notes None recorded. Medical Equipment None Reported. Allergies Allergen ID Allergen Name Allergen Category Reaction Reaction Severity Criticality Documentation Date Start Date Code Code System Note Provider Name and Address Organization Details Recorded Time 48560 Substance with sulfonami de structure and antibacte rial mechanism of action (substanc e) medicatio n rash swelling Not available Not available Not available 06/20/2020 28579 8003 SNOMED [facility] 3 13:02:23 Medications Name Sig Start Date Stop Date Status Note LastModified by Organization Details LastModified Time azithromy caren 250 mg tablet TAKE 2 TABLETS TODAY THEN 1 TABLET BY MOUTH FOR 4 MORE DAYS 08/02 completed Not Available Not Available Not Available terconazo le 0.8 % vaginal cream Insert 1 applicat orful every day by vaginal route at bedtime for 3 days. 02/17 completed Not Available Not Available Not Available phentermi ne 15 mg capsule TAKE 1 CAPSULE BY MOUTH DAILY active Not Available Not Available No t Available Diflucan 150 mg tablet take 1 tablet by oral route once 05/20 completed Prescrib ed Elsewher e: No [facility]at [facility] By: rosana aranda DateTime : 12/18/19 15 09:30:43 AM Not Available Not Available Not Available topiramat e 25 mg tablet TAKE 1 TABLET BY MOUTH DAILY active Not Available Not Available No t Available oxycodone -acetamin ophen 5 mg-325 mg tablet TAKE 1 TABLET BY MOUTH EVERY 4 HOURS NEEDED FOR PAIN 08/02 completed Not Available Not Available Not Available alprazola m 0.25 mg tablet TAKE 1 TABLET BY MOUTH TWICE DAILY NEEDED FOR ANXIETY 01/20 completed Not Available Not Available Not Available Metrogel Vaginal 0.75 % (37.5 mg/5 gram) insert 1 applicat orful by vaginal route every day at bedtime 12/11 completed Prescrib ed Elsewher e: No Locat ion: [facility] M odify By: lencho Dudleyalia er DateTime : 05/15/20 01:17:03 PM Not Available Not Available Not Available estradiol 1 mg tablet TAKE 1 TABLET BY MOUTH EVERY DAY 2024 active Not Available Not Available Not Avai lable topiramat e 50 mg tablet TAKE 1 TABLET BY MOUTH DAILY 01/20 completed Not Available Not Available Not Available Tylenol 09/14 completed Not Available Not Available Not Available Shantell 0.35 mg tablet TAKE 1 TABLET BY MOUTH EVERY DAY 08/02 completed Not Available Not Available Not Available Vitals Date Recorded Body height Body mass index (BMI) Body weight Systolic And Diastolic Provider Name and Address Organization Details Last Updated DateTime 08/02/2024 157.48 cm 43.5 kg/m2 529869.98 g 142/84 mm[Hg] [facility] 08/02/2024 11:12:07 Date Recorded Body height Body mass index (BMI) Body weight Systolic And Diastolic Provider Name and Address Organization Details Last Updated DateTime 09/29/2023 157.48 cm 45.2 kg/m2 723588.32 g 125/77 mm[Hg] [facility] 09/29/2023 12:09:27 Date Recorded Body height Body mass index (BMI) Body weight Systolic And Diastolic Provider Name and Address Organization Details Last Updated DateTime 10/29/2024 157.48 cm 43.7 kg/m2 794607.58 g 106/72 mm[Hg] [facility] 10/29/2024 16:19:09 Date Recorded Body height Body mass index (BMI) Body weight Systolic And Diastolic Provider Name and Address Organization Details Last Updated DateTime 11/16/2023 157.48 cm 44.4 kg/m2 385988.95 g 122/73 mm[Hg] Fatmata Yepez [facility] 11/16/2023 17:02:21 Date Recorded Body height Body mass index (BMI) Body weight Systolic And Diastolic Provider Name and Address Organization Details Last Updated DateTime 11/30/2023 157.48 cm 43.7 kg/m2 931741.58 g 119/77 mm[Hg] Fatmataelissa Yepez [facility] 11/30/2023 14:04:54 Social History Question Answer Notes LastModified by Organizat ion Details LastModified Time Tobacco Smoking Status Never Smoker Izzy Godinez anastacia, [facility] 03/17/2023 09:26:41 Do You Have An Advance Directive? Yes Information n ot available 01/20/2023 How Many Years Have You [...] Or The Highest Degree You Have Received? [id number] Information not available 01/20/2023 Are There Any [...] IV Drugs? No Information not available 01/20/2023 Do You Have Difficulty Walking Or Climbing Stairs? No Information not available 08/24/2023 Sex: Unknown Functional Status Question Answer Note LastModified by Organizat ion Details LastModified Time Do you use any illicit or recreational drugs? No Information not available 01/20/2023 What is your level of alcohol consumption? Occasional Information not available 01/20/2023 Are you able to walk? YESWOREST Information not available 01/20/2023 Are you able to care for yourself? 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 No [email or web address] Information not available 08/24/2023 What is your exercise level? Occasional Information not available 01/20/2023 Mental Status Question Answer Note LastModified by Organization D etails LastModified Time Do you feel stressed (tense, restless, nervous, or anxious, or unable to sleep at night)? [id number] Information not available 01/20/2023 Family History Relationship Description Onset Age of this Age Resolved Age Notes LastModified by Organization Details LastModified Time Paternal Grandmother Malignant neoplasm of lung Not available 2022 13:02:09 Mother Malignant tumor of breast Not available 2022 13:02:09 Mother Malignant neoplasm of lung Not available 2022 13:02:09 Mother Hypertensive disorder Not available 2022 13:02:09 Maternal Grandmother Malignant neoplasm of lung Not available 2022 13:02:09 Paternal Grandfather Malignant neoplasm of lung Not available 2022 13:02:09 Paternal Grandfather Malignant neoplasm of skin Not available 08/24 20:52:07 Father Malignant neoplasm of lung Not available 2022 13:02:09 Maternal Aunt Cyst of ovary Not available 08/24 20:51:29 Maternal Aunt Malignant neoplasm of ovary Not available 08/24 20:51:37 Medical History Condition Response Allergies (Food, seasonal, environmental ) N Other Y Blood Transfusion N Drug/Latex Allergies/Reactions Y Breast Cancer N Dermatologic Disorders N Lung Disease N Defects or Inherited Disease N Breast Problem N Gestational Diabetes N Hematologic disorders N Anesthesia Complications N History of STI Y Deep Vein Thrombosis N Polycystic ovary syndrome N Anxiety Disorder N Autoimmune disease N Arthritis N Infertility N Polyps N Acid Reflux (GERD) N History of abnormal pap Y Cancer N Stroke N Varicosities N Neurologic/Epilepsy N Endometriosis N High Cholesterol N Headaches N Fibromyalgia N Kidney Disease N Heart Problems N Kidney or Bladder Problems N Thyroid Problems N GI Problems N Eating Disorder N Anemia Y Art (IVF or FET) N Psychiatric Illness N Ovarian Cancer N Diabetes N Pulmonary (TB, Asthma) N Hepatitis/Liver Disease N No Past Medical History N Eczema N Urinary Tract Infection N Abuse/Domestic Violence N Asthma N Trauma/Violence N Depression/ depression N Heart Disease N Pre-Eclampsia N Hypertension N Osteoporosis N Thrombophilias N Gynecological History Statement/Question Response Abnormal Pap Yes Flow Moderate Date of Last Mammogram 06/18/2024 N On BCP's at Conception? N STIs/STDs Y Was last menstrual period normal Y HPV Vaccine N Colposcopy 02/23/2023 Duration of Flow (days) 5 Current Control Method Hysterectom y Age at First Child 19 Are cycles usually normal Y Sexually Active? Y N/A Menses Monthly N Date of DEXA bone scan Age of first menstrual cycle 14 Date of Last Pap Smear 08/02/2024 Sexual Problems? N LMP Definite N Obstetrics History GPAL:G 4 P 3 0 1 3 Type Value Full Term 3 Spontaneous 1 Living 3 Total 4 Past Encounters Encounter ID Performer Location Encounter Start Date Encounter Closed Date Diagnosis/Indication Diagnosis SNOMED-CT Code Diagnosis ICD10 Code Diagnosis Note [id number] Christos Cosby MD [facility] [address],[place] [address] 01/20/2023 11:33:28 01/20/2023 13:50:32 Uncertain viability of 326662704 O36.80X0 Z3A.08 [id number] Christos Cosby MD [facility] [address],[place] [address] 01/20/2023 11:49:54 01/21/2023 10:27:46 Amenorrhea 74924234 N91.2 this patient is a 37-year-ol d female with amenorrhea . She has a positive test. Ultrasound revealed an intrauteri ne . She has no complaints . Reviewed care. We reviewed precaution s in . We did a Pap smear and pelvic exam. It was normal. She will begin routine care in 4 weeks. We spent over 20 minutes face-to-fa ce. More than 50% was counseling . [id number] Christos Cosby MD [facility] [address],[place] [address] 02/17/2023 11:52:24 02/17/2023 12:54:16 screening 399893093 Z36.82 [id number] Christos Cosby MD [facility] [address],[place] [address] 02/17/2023 11:52:38 02/18/2023 10:45:12 Routine care 186541795 Z34.81 [id number] Christos Cosby MD [facility] [address],[place] [address] 02/28/2023 09:24:36 02/28/2023 12:34:45 Abnormal cervical Papanicolaou smear 009817760 R87.619 colposcopy was performed, it was uncomplica giancarlo. She tolerated well, no biopsies, aceto-whit e lesions were present, did not appear to be severe dysplasia or cancer. [id number] Christos MD Hermelinda Cortés [address],[place] [address] 03/17/2023 09:26:19 03/17/2023 17:15:31 Routine care 403685653 Z34.81 [id number] MD Hermelinda Narvaez [address],[place] [address] 03/17/2023 10:17:06 03/17/2023 15:35:02 Spotting per vagina in 221584863 Z3A.16 [id number] MD Hermelinda Narvaez [address],[place] [address] 04/14/2023 09:25:39 04/14/2023 10:48:07 screening for malformation 573600131 Z36.3 Z3A.20 [id number] MD Hermelinda Narvaez [address],[place] [address] 04/14/2023 09:25:56 04/14/2023 11:23:21 Routine care 872958170 Z34.81 [id number] MD Hermelinda Narvaez [address],[place] [address] 05/12/2023 14:50:58 05/12/2023 15:42:54 screening 740254064 Z36.2 Z3A.24 [id number] MD Hermelinda Narvaez [address],[place] [address] 05/12/2023 14:51:18 05/12/2023 16:44:04 Routine care 397232185 Z34.81 [id number] MD Hermelinda Narvaez [address],[place] [address] 06/09/2023 14:58:04 06/09/2023 15:27:03 Routine care 208469234 Z34.81 [id number] MD Hermelinda Narvaez [address],[place] [address] 06/23/2023 09:11:03 06/23/2023 11:24:10 Routine care 121326211 Z34.81 [id number] MD Hermelinda Narvaez [address],[place] [address] 07/07/2023 16:48:22 07/07/2023 17:21:36 Maternal obesity complicating , childbirth and the puerperium, antepartum 2471067595 07 O99.213 O09.523 Z3A.32 [id number] MD Hermelinda Narvaez [address],[place] [address] 07/07/2023 16:52:52 07/08/2023 08:00:37 Routine care 838567496 Z34.81 [id number] ANDERSON CAI MD [facility] [address],[place] [address] 07/21/2023 09:26:26 07/21/2023 10:37:23 Maternal obesity complicating , childbirth and the puerperium, antepartum 9459817678 07 O99.213 O09.529 Z3A.34 [id number] ANDERSON CAI MD [facility] [address],[place] [address] 07/21/2023 09:26:58 07/21/2023 10:06:19 Maternal obesity complicating , childbirth and the puerperium, antepartum 4182615264 07 O99.213 O09.529 Z3A.34 [id number] MD Hermelinda Narvaez [address],[place] [address] 07/28/2023 09:07:27 07/28/2023 09:51:34 Maternal obesity complicating , childbirth and the puerperium, antepartum 8878496482 07 O99.213 O09.523 Z3A.35 [id number] MD Hermelinda Narvaez [address],[place] [address] 07/28/2023 09:08:06 07/28/2023 10:24:21 Maternal obesity complicating , childbirth and the puerperium, antepartum 9640859899 07 O99.213 O09.523 Z3A.32 [id number] MD Hermelinda Narvaez [address],[place] [address] 07/28/2023 10:06:52 07/28/2023 10:42:50 Routine care 986323014 Z34.81 [id number] MD Hermelinda Narvaez [address],[place] [address] 08/04/2023 09:09:41 08/04/2023 10:05:34 Maternal obesity complicating , childbirth and the puerperium, antepartum 2904298155 07 O99.213 O09.523 Z3A.36 [id number] MD Hermelinda Narvaez [address],[place] [address] 08/04/2023 09:10:16 08/04/2023 12:49:47 Maternal obesity complicating , childbirth and the puerperium, antepartum 2743811583 07 O99.213 O09.523 Z3A.36 [id number] Christos Cosby MD [facility] [address],[place] [address] 08/04/2023 09:10:42 08/04/2023 12:02:22 Routine care 925984147 Z34.81 [id number] MD Hermelinda Narvaez [address],[place] [address] 08/11/2023 09:04:57 08/11/2023 09:50:05 Maternal obesity complicating , childbirth and the puerperium, antepartum 4694504820 07 O99.213 O09.523 Z3A.37 [id number] MD Hermelinda Narvaez [address],[place] [address] 08/11/2023 09:06:14 08/11/2023 11:12:58 Maternal obesity complicating , childbirth and the puerperium, antepartum 4713079005 07 O99.213 O09.523 Z3A.37 [id number] Christos Cosby MD [facility] [address],[place] [address] 08/11/2023 09:06:28 08/11/2023 11:28:11 Routine care 612987259 Z34.81 [id number] Christos Cosby MD [facility] [address],[place] [address] 08/22/2023 11:14:36 08/22/2023 12:15:32 Postoperative care 322438171 Z48.89 This patient is a 37-year-ol d female who presents for postop follow-up. She is 1 week postop from a delivery. Her incision is clean dry and intact. She has no complaints . Her bleeding is minimal. She denies any nausea, vomiting, fever, chills. She denies any chest pain or shortness of breath. Her baby is doing well. Her mood is good. [id number] Christos Cosby MD [facility] [address],[place] [address] 09/15/2023 09:27:08 09/15/2023 10:19:49 care 815797514 Z39.2 this patient is a 38-year-ol d female who presents for care. [facility]. Her baby is doing well. Baby is bottle feeding. She is doing well. Her mood is reasonably good. She is still lightly bleeding. She is going to start the progestero ne only pill for contracept ion. She has not had intercours e. She will return shortly for consultati on on heavy bleeding at the time of her menses and abnormal Pap smear. She is considerin g hysterecto my. To have ultrasound . [id number] Christos Cosby MD [facility] [address],[place] [address] 09/29/2023 11:23:57 09/29/2023 11:59:36 Abnormal uterine bleeding 6447026921 9100 N93.9 [id number] Christos Cosby MD [facility] [address],[place] [address] 09/29/2023 11:24:16 09/29/2023 15:17:13 Menorrhagia 658961833 N92.0 This patient is a 38-year-ol d female who presents for follow-up on menorrhagi a and pelvic ultrasound family history of gynecologi c cancer. Patient has a profound history of gynecologi c cancer. She has severe menorrhagi a. She has bleeding that gets on her bedding and clothing. She states that it affects her quality of life and activities of living. Her ultrasound is normal. We discussed treatment options in detail. She would like definitive surgical treatment. We talked about hysterecto my in detail. We agreed to proceed with total laparoscop ic hysterecto my and bilateral Salpingo-o ophorectom y. We spent over 40 minutes face-to-fa ce. We made a decision to perform surgery. She was thoroughly counseled on all aspects of menorrhagi a, treatment, hysterecto my. Family his tory of malignant neoplasm of ovary in first degree relative 9259628761 106 Z80.41 [id number] Christos Cosby MD [facility] [address],[place] [address] 11/16/2023 16:54:26 11/16/2023 17:26:19 Menorrhagia 441166682 N92.0 this patient is a 38-year-ol d female with menorrhagi a and a family history of female genital cancer. We have agreed to perform total laparoscop ic hysterecto my bilateral salpingo-o ophorectom y. She understand s risks, benefits, and alternativ es. She is completed the informed consent process and is ready to proceed. [id number] Christos Cosby MD [facility] [address] [address] 11/30/2023 13:57:09 12/01/2023 09:12:48 Postoperative care 232034784 Z48.89 female Patient presents for postop follow-up. She is 1 week postop from a total laparoscop ic hysterecto my bilateral salpingect suraj. She has no complaints . Her incisions are clean dry and intact. She is recovering normally. She will follow-up as needed. [id number] Christos Cosby MD [facility] [address] [address] 08/02/2024 11:05:34 08/02/2024 11:54:29 Gynecologic examination 21390149 Z01.419 Z11.51 Z11.8 Z11.3 Annual gynecologi benjamin exam performed. Patient will come back in a year unless there are new symptoms. Suggest Calcium with Vitamin D if not eating in diet. Patient advised to get annual flu shot. Recommend yearly physicals and preform monthly breast exams. Genetic testing is available for patients with family history of cancer. Engage in safe sexual practices, use condoms. Encouraged to have daily exercise. Avoid tobacco and illicit drugs, moderation of alcohol. If BMI greater than 25 dietary consult advised. If you have any questions please call or email. mammogram- done Pap smear- Done today laboratory evaluation - done by PCP Menopausal symptom 81187 002 N95.1 [id number] Christos Cosby MD [facility] [address] [address] 10/29/2024 15:52:04 10/29/2024 17:04:25 Disorder of rectum [id number] N81.6 This patient is a 39-year-ol d female who presents for possible prolapse. Patient states she feels something bulging out of the vagina when she needs to have a bowel movement. She reports pushing on the bulge to facilitate passing stool. She was examined. She has a grade 3 rectocele and a subclinica l cystocele. Minimal vaginal apical descent with Valsalva. Recommende d she see Urogynecol hemant. I spent over 20 minutes on the patient's care. She will be referred to Dr. Esquivel. Health Concerns Section Related Observation LastModified by Organization Detai ls LastModified Time None Recorded Concern Status LastModified by Organization Details LastModified Time None Recorded Advance Directives Directive Y: Payers Insurance Date Sequence Insurance Name Policy Number Policy Reynoso Covered Member ID Reynoso Member ID Guarantor Name 08/05/2024 PAYMENT PLAN Aislinn Moralesumpeter 12/03/2024 PAYMENT PLAN Aislinn Trumpeter 11/15/2023 1 [facility] [id number] Aislinn Levineter [id number] Aislinn Quinteros 11/22/2023 2 [place] [facility] Aislinn Quinteros [id number] Aislinn Quinteros 08/21/2023 PAYMENT PLAN Aislinn Quinteros 10/29/2024 1 [facility] [id number] Carlos Quinteros [id number] Aislinn Quinteros Notes Date Note Type Note Provider Name and Address Organization Details Recorded Time 09/29/2023 text/html This patient is a 38-year-old [...] proceed with total laparoscopic hysterectomy and bilateral Salpingo-oophorect suraj. We spent over 40 minutes [id number]. We made a decision to perform surgery. She was thoroughly counseled on all aspects of menorrhagia, treatment, hysterectomy. Christos Cosby MD [address], [place], [address], [facility] 09/29/2023 15:16:12 11/16/2023 text/html Patient is a 38-year-old female with severe menorrhagia and history, family history of female genital cancer. We have agreed to perform total laparoscopic hysterectomy bilateral salpingo-oophorect suraj. The patient understands the procedure. The procedure [...] infection. Christos Cosby MD [address], [place], [address], [facility] 11/16/2023 17:24:12 11/30/2023 text/html female Patient presents for postop follow-up. She is 1 week postop from a total laparoscopic hysterectomy bilateral salpingectomy. She has no complaints. Her incisions are clean dry and intact. She is recovering normally. She will follow-up as needed. Christos Cosby MD [address], [place], [address], [facility] 11/30/2023 18:20:41 08/02/2024 text/html Annual GYNReport ed bypatient.History: no gynecologic complaints Urinary symptoms:No hematuria Vulva:No genital lesion Vagina:Normal vaginal discharge Breast:No breast pain; No breast lump Sexual complaints:No sexual complaints Menopausal Symptoms:No menopausal symptoms Psychological symptoms:No depression; No anxiety Preventive measures:Encourage self breast examination; Encourage regular exercise Christos Cosby MD [address], [place], [address], [facility] 08/02/2024 11:46:30 10/29/2024 text/html This patient is a 39-year-old female who presents for possible prolapse. Patient states she feels something bulging out of the vagina when she needs to have a bowel movement. She reports pushing on the bulge to facilitate passing stool. She was examined. She has a grade 3 rectocele and a subclinical cystocele. Minimal vaginal apical descent with Valsalva. Recommended she see Urogynecology. I spent over 20 minutes on the patient's care. She will be referred to Dr. Esquivel. Christos Cosby MD [address], [place], [address], [facility] 10/29/2024 17:01:34 OBGyn Episode Ob Episode Information Episode Created Date Number of Fetuses Patient Bloodtype Patient rh Status Prepregnancy Weight lbs Domestic Partner Domestic Partner Phone Father Name [employer] Technician Status 01/21/20 23 1 CLOSED Fetus Data First Name Last Name Admitted to NICU Weight (g) Sex Living Outcome Pediatric Complications Fetus ID Race Codes Race Delivery Type , Spontane ous [id number] Lele Calculation Initial Lele Date Initial Exam Date Initial Exam Provider Initial Ultrasound Date Last Menstrual Period Date Ultra Sound Weeks Gestation 0 Eighteen To Twenty Week Lele Update Ultra Sound Date Fundal Height At Umbil Quickening Date Ultra Sound Latest Weeks Gestation Final Lele Confirmed By Final Lele Confirmed Date Final Lele Date Ultra Sound Latest Days Gestation 0 [...] Domestic Partner Domestic Partner Phone Father Name [employer] Technician Status 02/18/20 23 1 O Positive 271 CLOSED Fetus Data First Name Last Name Admitted to NICU Weight (g) Sex Living Outcome Pediatric Complications Fetus ID Race Codes Race Delivery Type 3373.59 05 M true Full Term head malpresentatio n, nonreassuring heart tones, [id number] Primary Problems Problem Notes QUESTIONABLE SHOULDER DYSTOC IA IN 1ST - 8 LB, SUBSEQUENT BABY 8 LB 10 OZ WITH NO COMPLICATIONS. possible bicornuate uterus Problem Name Start Date End Date Resolution Snomed Code Not e Advanced maternal age [id number] Anemia [id number] slo fe jose g ly Obesity [id number] ante 34wks Lele Calculation Initial Lele Date Initial Exam Date Initial Exam Provider Initial Ultrasound Date Last Menstrual Period Date Ultra Sound Weeks Gestation 09/03/2023 02/17/2023 01/20/2023 11/27/2022 8 Eighteen To Twenty Week Lele Update Ultra Sound Date Fundal Height At Umbil Quickening Date Ultra Sound Latest Weeks Gestation Final Lele Confirmed By Final Lele Confirmed Date Final Lele Date Ultra Sound Latest Days Gestation 0 [id number] 04/14/2023 08/28/19 24 0 Pre- Flowsheet Flowsheet Date 02/17/2023 Lima Score Blood Edema Fundus Height Fundus Units Glucose Ketones Leukocytes Nitrite Labor Signs Protein Cervic Dilation Cervic Effacement Cervic Station 11 Type Weight in lbs Pre/Post Dialysis Refused Weight 266.680507289855 BP Diastolic BP Location Tested BP Systolic [...] Weight in lbs Pre/Post Dialysis Refused Weight 265.820176481916 BP Diastolic BP Location Tested BP Systolic BP Type 74 R arm 111 sitting Fetus Heart Rate Present Fetus Movement Comments Flowsheet Date 03/17/2023 Lima Score Blood Edema Fundus Height Fundus Units Glucose Ketones Leukocytes Nitrite Labor Signs Protein Cervic Dilation Cervic Effacement Cervic Station 15 none trace Type Weight in lbs Pre/Post Dialysis Refused Weight 263.889564217053 BP Diastolic BP Location Tested BP Systolic BP Type 73 L arm 115 sitting Fetus Heart Rate Present A 145 Fetus Movement Comments spotting, visit to ED, brannon english bedside ultrasound in the ED, continues to [...] Weight in lbs Pre/Post Dialysis Refused Weight 264.201143806090 BP Diastolic BP Location Tested BP Systolic [...] Weight in lbs Pre/Post Dialysis Refused Weight 267.674374819178 BP Diastolic BP Location Tested BP Systolic BP Type 70 R arm 131 sitting Fetus Heart Rate Present Fetus Movement Comments Anatomy scan completed today , no problems, no complaints Flowsheet Date 06/09/2023 Lima Score Blood Edema Fundus Height Fundus Units Glucose Ketones Leukocytes Nitrite Labor Signs Protein Cervic Dilation Cervic Effacement Cervic Station Type Weight in lbs Pre/Post Dialysis Refused Weight 267.869645528230 BP Diastolic BP Location Tested BP Systolic [...] Weight in lbs Pre/Post Dialysis Refused Weight 266.857488083904 BP Diastolic BP Location Tested BP Systolic [...] Weight in lbs Pre/Post Dialysis Refused Weight 267.296209662838 BP Diastolic BP Location Tested BP Systolic [...] Present Fetus Movement Comments Flowsheet Date 07/28/2023 Ilma Score Blood Edema Fundus Height Fundus Units [...] Weight in lbs Pre/Post Dialysis Refused Weight 267.250979316163 BP Diastolic BP Location Tested BP Systolic [...] Weight in lbs Pre/Post Dialysis Refused Weight 271.201205373324 BP Diastolic BP Location Tested BP Systolic [...] Weight in lbs Pre/Post Dialysis Refused Weight 271.704909832330 BP Diastolic BP Location Tested BP Systolic BP Type 84 L arm 130 sitting Fetus Heart Rate Present A 155 Fetus Movement Comments no complaints, no problems, routine care Flowsheet Date 08/22/2023 Lima Score Blood Edema Fundus Height Fundus Units Glucose Ketones Leukocytes Nitrite Labor Signs Protein Cervic Dilation Cervic Effacement Cervic Station Type Weight in lbs Pre/Post Dialysis Refused Weight 266.251697711123 BP Diastolic BP Location Tested BP Systolic [...] Estim ated Date of Delivery false Thalassemia (Cambodian, Albanian, Mediterranean, Or Background): MCV < 80 false Neural Tube Defect (Meningomyelocele, Spina Bifi da, Or Anencephaly) false Congenital Heart Defect false Down Syndrome false Jacob-Sachs (eg, Mormon, Cajun, Central African-Somali) f alse Oksana Disease false Sickle Cell Disease Or Trait () false Hemophilia Or Other Blood Disorders false Muscular Dystrophy false Cystic Fibrosis false Fowler's Chorea false Intellectual Disability/Autism false If Yes, [...] Post Complications Tubal Sterilization Discharge Date Comments [facility] idural 38.1 Low Transvers e false Christos Cosby MD Advanced maternal age ,A nemia,Obe sity Discharge Information Feeding Method Contraceptive Method Maternal HG B and HCT Levels Ob Episode Information Episode Created Date Number of Fetuses Patient Bloodtype Patient rh Status Prepregnancy Weight lbs Domestic Partner Domestic Partner Phone Father Name [employer] Technician Status 01/21/20 23 1 CLOSED Fetus Data First Name Last Name Admitted to NICU Weight (g) Sex Living Outcome Pediatric Complications Fetus ID Race Codes Race Delivery Type 3628.73 6 M Full Term [id number] Vaginal Delivery Lele Calculation Initial Lele Date Initial Exam Date Initial Exam Provider Initial Ultrasound Date Last Menstrual Period Date Ultra Sound Weeks Gestation 0 Eighteen To Twenty Week Lele Update Ultra Sound Date Fundal Height At Umbil Quickening Date Ultra Sound Latest Weeks Gestation Final Lele Confirmed By Final Lele Confirmed Date Final Lele Date Ultra Sound Latest Days Gestation 0 [...] Domestic Partner Domestic Partner Phone Father Name [employer] Technician Status 01/21/20 23 1 CLOSED Fetus Data First Name Last Name Admitted to NICU Weight (g) Sex Living Outcome Pediatric Complications Fetus ID Race Codes Race Delivery Type 3912.23 1 M Full Term 10085 Vaginal Delivery Lele Calculation Initial Lele Date Initial Exam Date Initial Exam Provider Initial Ultrasound Date Last Menstrual Period Date Ultra Sound Weeks Gestation 0 Eighteen To Twenty Week Lele Update Ultra Sound Date Fundal Height At Umbil Quickening Date Ultra Sound Latest Weeks Gestation Final Lele Confirmed By Final Lele Confirmed Date Final Lele Date Ultra Sound Latest Days Gestation 0 [...]
--- OUTSIDE RECORDS SUMMARY | 2025-01-14 02:23 | XMS_ITS | Clinical Summary ---
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 Gender Identity Not on file Sexual Orientation Not on file Plan of Treatment Health Maintenance Due Date Last Done Comments Hepatitis C Virus (HCV) Screening 1984 TdaP Immunization 1984 Hepatitis B Immunization (1 of 3 - 19+ 3-dose series) 2003 Pap Smear 2005 Cervical Cancer Screening (CCS) 2014 HPV/Cotest 2014 Influenza Immunization (#1) 2024 SARS-COV-2 Immunization ( season) 2024 08/19/2020, 07/22/2020 Discussion re Starting/Frequency of Mammograms 2024 Respiratory Syncytial Virus (RSV) Immunization (Adult) (1 - 1-dose 75+ series) 2059 Meningococcal Immunization (ACWY) Aged Out No longer eligible b ased on patient's age to complete this topic Pneumococcal Immunization Combined Aged Out No longer eligible b ased on patient's age to complete this topic Rotavirus Immunization Aged Out No lo nger eligible based on patient's age to complete this topic
--- NOTE | 2025-01-14 04:29 | WPDHPUPDATE1 ---
History and Physical Update Update Date/Time: 01/14/25 04:29 History and Physical has been reviewed, including an updated exam of the patient. There are NO changes in the patient's condition. Risks, benefits, and alternatives have been discussed and questions answered. Patient agrees to proceed with procedure.
[2025-01-14] MEDS: LACTATED RINGERS 1,000 ML 30 ML IV CONT ×2 (10:45→12:57)
--- NOTE | 2025-01-14 11:26 | WPDANESEPPF ---
Anes - Initial Pre Proc Eval Procedure: Operation Date: 01/14/25 12:00 Proposed Procedures p Vaginal Sacrospinus Fixation, Rectocele Repair, Urethral Sling - Shivam Esquivel MD Date/Time: 01/14/25 11:26 Surgeon: Shivam Esquivel MD Pre Op Diagnosis: vaginal vault prolapse, stress incont Patient Data Age: 39 Gender: F Height: 1.57 m Weight: 109.5 kg Last Vital Signs Temp 97.2 F L 01/14/25 10:45 Pulse 58 L 01/14/25 10:45 Resp 16 01/14/25 10:45 BP 133/74 01/14/25 10:45 Pulse Ox 100 01/14/25 10:45 O2 Del Method Room Air 01/14/25 10:45 Allergies Allergy/AdvReac Type Severity Reaction Status Date / Time Sulfa (Sulfonamide AdvReac Severe HIVES, Verified 01/14/25 10:58 Antibiotics) ITCHY Home Medications ?Medication ?Instructions ?Recorded ?Confirmed ?Type topiramate 25 mg tablet (Topamax) 25 mg PO DAILY #90 tabs 08/27/24 01/02/25 Rx estradiol 1 mg tablet 1 mg PO DAILY 10/26/24 01/02/25 History phentermine 37.5 mg capsule 37.5 mg PO DAILY #30 caps 01/01/25 01/02/25 Rx Patient hx anesthesia problems: none Family hx anesthesia problems: none Results Review: All pre-operative results and documents have been reviewed as part of the pre-operative evaluation. [facility] Past Medical History Medical History VICKIE (obstructive sleep apnea) Obesity Surgical History Surgical History History of total hysterectomy with bilateral salpingo-oophorectomy (BSO) 11/2023 History of 08/2023 Family History Family History Sibling Heart murmur Sibling Tumor, thyroid Father Lung cancer Mother Breast cancer Lung cancer Social History Social History Social History: 10/19/24 very confident with medical forms Smoking status: Never smoker Second hand tobacco smoke exposure: No Alcohol intake: current Substance use: never Substance use type: does not use Do You Feel Safe in your Home?: Yes Lack of Transportation: No Lack of Food: Never True Current Housing: I Have Housing Concerned About Future Housing: No Difficulty Paying Gas/Electric Bills: No Difficulty Paying for Meds: No Currently Unemployed: No Education: Bachelor's Degree Difficulty w/ Childcare or Family Care: No Living arrangements: with family Occupation/Education: occupation Gender identity (if verbalized by the patient): Female Sexual Orientation (if Verbalized by the Patient): Straight or Heterosexual Spiritual care concerns: No Anes - Eval Final PreProcedure Day of Procedure 01/14/25 11:26 Patient weight: morbidly obese Lungs: normal air movement Airway: Mallampati scale class II and special considerations (Partial in place, pt reports hx of cleft lip/palate surgery. ) Neurological: alert and oriented Last oral intake: >/= 8 hours ASA classification: III Emergent: no Anesthetic plan: proceed Anesthesia type and monitoring: general LMA and standard monitoring Results Review: All pre-operative results and documents have been reviewed as part of the pre-operative evaluation. BMI 44, pt just started using CPAP for VICKIE approx 1 month, using approx 5 hours/night. Informed Consent: The patient's anesthetic plan and its attendant risks and benefits were discussed with the patient/family/POA. Questions were solicited and answers provided to the satisfaction of the patient/family/POA.
--- NOTE | 2025-01-14 13:12 | P.OP_ITS ---
Procedure Note - Detailed Date of Procedure 01/14/25 Pre-op Diagnosis vaginal vault prolapse, stress incont Post-op Diagnosis Same Procedure Performed Bilateral sacral spinous ligament fixation Rectocele repair Mid urethral sling Cystoscopy Surgeon Shivam Esquivel MD Anesthesia General Indications This alone with a large rectocele with loss of apical support. She also has symptomatic stress incontinence. She presents today for surgical correction. Understands risks of bleeding, infection, damage surrounding organs, damage to bowel or urinary tract, fistula, postoperative voiding dysfunction including incontinence retention, leg pain, mesh related complications, recurrence of prolapse, vascular injury, nerve injury, pain. She agrees to proceed Findings Large rectocele. Poor quality posterior vaginal wall tissues. Loss of apical support Description of Procedure She was correctly identified. Informed consent obtained. From the operating room. She was given general anesthesia. She was placed in dorsal lithotomy position. Pressure points were padded. She was given appropriate preop antibiotics. Time-out performed. I placed Byrd catheter. I placed a [place] retractor. She had a very large rectocele beyond the introitus. A mild loss of apical support. Quality posterior vaginal wall tissues. I grasped the rectocele with Allis clamps. I infiltrated subcutaneous tissues with 30 cc of local mixed with saline and epinephrine. I made a midline vaginal incision on the posterior wall. I dissected out laterally and towards the apex. I took great care not to injure underlying rectum. I did not enter the peritoneum however the peritoneum was quite thin as well as the vaginal tissues. I entered the retroperitoneal space on both the patient's right and the left. I cleared off the tissues and swept the rectum medially. I palpated the ischial spine and the sacral spinous ligament I did a bilateral sacral spinous ligament fixation. I used the Capio device to place an Ethibond suture 1st in the patient's right sacral spinous ligament 2 fingerbreadths medial to the ischial spine. I then repeated this on the left again 2 fingerbreadths medial to the ischial spine. Again I cleared off all tissues to easy bleed palpate the sacral spinous ligament and sweep the rectum medially. I then placed the other end of the sutures into the vaginal apex bilaterally. I then performed a standard plication rectocele repair. I used interrupted 0 Vicryl sutures to plicate the rectovaginal tissues over the midline. This resulted in excellent support of the rectocele. I then trimmed excess vaginal mucosa. I then tied down my sacral spinous ligament sutures bilaterally. This elevated the vaginal apex. It did not deviate the vagina to the right or the left. I kept the vagina the midline. I then closed the vaginal mucosa with a running 2-0 Vicryl suture. I assured hemostasis. There was no sign of underlying rectal injury during the entire portion of the procedure. I then turned my attention to the urethral sling. I marked out the inner thigh incisions. I anesthetized the skin and made those incisions. I anesthetized the anterior vaginal wall over the mid urethra. I made a 1 cm incision. I dissected out laterally taking great care not to injure the refill vaginal wall. I passed the helical trocars 1st the left and then on the right from the thigh incision towards the vaginal incision. Sling was connected to the trocars about the thigh incision. I tensioned the sling appropriately. I cut and the plastic sheaths. I then closed the incision with 2-0 Vicryl. On cystoscopy she had no tumors, stones, trabeculations, abnormal red patches, foreign bodies. Ureteral orifices were normal. No surgical artifact the bladder urethra. I closed excess sling material. Closed the incisions with glue. Assured hemostasis. We did she was then awakened transferred to PACU in stable condition.
[2025-01-14] MEDS: fentaNYL CITRATE INJ (*CRX) 100 MCG/2 ML VIAL 25 MCG IV PUSH ×7 (13:34→15:20)
[2025-01-14] MEDS: ONDANSETRON INJ 4 MG/2 ML VIAL IV PUSH (14:40)
[2025-01-14] MEDS: oxyCODONE HCL (*CRX) 5 MG TAB IR PO (14:57)
== END 2025-01-14 16:07 | disposition home or self-care (01) ==
PROVIDERS: Visit Provider Urology
PROC: (CPT 57260; principal; 2025-01-14 12:00)
DX: N39.3 Stress incontinence (female) (male) (principal); N99.3 Prolapse of vaginal vault after hysterectomy; G47.33 Obstructive sleep apnea (adult) (pediatric); E66.01 Morbid (severe) obesity due to excess calories; Z68.41 Body mass index [BMI] 40.0-44.9, adult; Z99.89 Dependence on other enabling machines and devices; Z98.890 Other specified postprocedural states; Z80.1 Family history of malignant neoplasm of trachea, bronchus and lung; Z80.3 Family history of malignant neoplasm of breast
CPT/HCPCS: 57282; 45560; 57288; A9270; C1771; J1100; J2003; J2250; J2270; J2405; J2704; J3010; J7030; J7120; Q9968